=== PATIENT | male | born 1940 | race Caucasian/White ===

== ENCOUNTER 2019-12-20 20:29 | Emergency (ER) | payer OTHER, MEDICARE ==
[2019-12-20] MEDS ORDERED: LIDOCAINE VISCOUS 2% SOLN 15 ML UDC ONE (21:36)
[2019-12-20] MEDS ORDERED: ACETAMINOPHEN 325 MG TABLET ONE (21:57)
[2019-12-20] MEDS ORDERED: NA CHLORIDE 0.9% 100 ML IV ONE (21:57)
[2019-12-20] MEDS ORDERED: CLINDAMYCIN 900MG/D5W 900 MG/50 ML IVPB IV ONE (21:57)
[2019-12-20] MEDS ORDERED: CEFTRIAXONE/SWI 1gm 2 GM/20 ML SYR ONE (21:58)
[2019-12-20 22:07] LABS: Absolute Lymphocytes (CBC) 1.1 K/uL (0.7-4.9); Basophils % 0.5 % (0-1.3); Hematocrit 37.1 % (39.6-49.0); Lymphocytes % 8.1 % (15.3-44.8); RBC Red Blood Cell Count 3.99 M/uL (4.33-5.43)
[2019-12-20 22:18] LABS: Bilirubin Total 0.5 mg/dL (0.2-1.0); Potassium 4.5 mmol/L (3.5-5.1); Protein, Total 8.7 g/dL (6.4-8.2)
--- NOTE | 2019-12-20 22:24 | ER ---
Nurse's Notes [facility] Name: Rojas Gutierres Age: 79 yrs Sex: Male : 1940 Arrival Date: 12/20/2019 Time: 20:32 Bed 26 Private MD: Diagnosis: Dental caries-odontogenic abscess;Dental root caries;Elevated white blood cell count;Unspecified kidney failure;Type 2 diabetes mellitus Presentation: 12/19 20:33 Chief complaint: Patient states: "I started to come down with a tooth infection aj1 yesterday and I went to the dentist and they just gave me antibiotics, but then tonight I started running fever and I was hurting so bad my said I had to come here". Coronavirus screen: The patient has NOT traveled to a country currently being monitored by the [facility] within the last 14 days. Ebola Screen: Patient negative for fever greater than or equal to 101.5 degrees Fahrenheit, and additional compatible Ebola Virus Disease symptoms. Initial Sepsis Screen: Does the patient meet any 2 criteria? Does the patient have a suspected source of infection? Yes: Other: abscessed tooth. Risk Assessment: Do you want to hurt yourself or someone else? Patient reports no desire to harm self or others. 20:33 Method Of Arrival: Ambulatory aj1 20:38 Acuity: IOANA 3 aj1 Triage Assessment: 20:37 General: Appears in no apparent distress. uncomfortable, Behavior is calm, cooperative, aj1 appropriate for age. Pain: Complains of pain in left jaw. EENT: Reports pain in left jaw. Neuro: Level of Consciousness is awake, alert, obeys commands. Cardiovascular: Patient's skin is warm and dry. Respiratory: Airway is patent Respiratory effort is even, unlabored, Respiratory pattern is regular, symmetrical. Historical: - Allergies: 20:37 No Known Allergies; aj1 - PMHx: 20:37 Hyperlipidemia; Hypertension; Diabetes - NIDDM; Gout; aj1 - Immunization history:: Flu vaccine is not up to date. - Social history:: Smoking status: Patient/guardian denies using tobacco. - Family history:: not pertinent. Screenin:06 Abuse screen: Denies threats or abuse. Denies injuries from another. Nutritional ls4 screening: No deficits noted. Tuberculosis screening: No symptoms or risk factors identified. Fall Risk None identified. Vital Signs: 20:37 BP 150 / 73; Pulse 89; Resp 20; Temp 100.9; Pulse Ox 100% on R/A; Weight 83.91 kg (R); aj1 Height 5 ft. 9 in. (175.26 cm); Pain 7/10; 20:37 Body Mass Index 27.32 (83.91 kg, 175.26 cm) aj1 ED Course: 20:32 Patient arrived in ED. jg7 20:37 Arm band placed on Patient placed in waiting room, Patient notified of wait time. aj1 20:39 Triage completed. aj1 21:23 Silverio Olivas MD is Attending Physician. tiffanie 21:42 Annie Tucker RN is Primary Nurse. ls4 22:06 Patient has correct armband on for positive identification. Bed in low position. Call ls4 light in reach. Side rails up X 1. 22:06 No provider procedures requiring assistance completed. ls4 22:22 Emmanuel Perez DDS is Referral Physician. tiffanie 23:01 IV discontinued, intact, bleeding controlled, No redness/swelling at site. Pressure ls4 dressing applied. Administered Medications: 21:45 Drug: Lidocaine Gel 2 % 1 ea Volume: 15 ml; Route: Mucous Membrane; vc 22:36 Follow up: Response: No adverse reaction; Marked relief of symptoms ls4 21:50 Drug: Rocephin 2 grams Route: IV; Rate: per protocol; Site: right antecubital; ls4 22:10 Follow up: IV Status: Completed infusion; IV Intake: 20ml ls4 22:10 Follow up: Response: No adverse reaction ls4 21:50 Drug: Tylenol 650 mg Route: PO; ls4 22:10 Follow up: Response: No adverse reaction ls4 22:15 Drug: Clindamycin 900 mg Route: IVPB; Infused Over: 30 mins; Site: right antecubital; ls4 22:45 Follow up: IV Status: Completed infusion; IV Intake: 50ml ls4 23:00 Drug: Clindamycin 300 mg Route: PO; ls4 23:10 Follow up: Response: No adverse reaction ls4 Intake: 22:10 IV: 20ml; Total: 20ml. ls4 22:45 IV: 50ml; Total: 70ml. ls4 Outcome: 22:22 Discharge ordered by . tiffanie 23:01 Patient left the ED. ls4 23:01 Condition: stable ls4 23:01 Discharged to home ambulatory, with family. ls4 23:01 Discharge instructions given to patient, family, Instructed on discharge instructions, follow up and referral plans. medication usage, Demonstrated understanding of instructions, follow-up care, medications, Prescriptions given X 1. Signatures: Izabel Ellis RN RN aj1 Silverio Olivas MD MD cha Stewart, Lisa, RN RN ls4 Madisyn Taverasg7 Taylor Fisher RN RN
--- NOTE | 2019-12-20 22:24 | EDPHYS ---
Physician Documentation [facility] Name: Rojas Gutierres Age: 79 yrs Sex: Male : 1940 Arrival Date: 12/20/2019 Time: 20:32 Bed 26 Private MD: ED Physician Silverio Olivas HPI: 12/19 21:38 This 79 yrs old Male presents to ER via Ambulatory with complaints of [facility] Toothache, Fever. 21:38 The patient presents with pain, redness, swelling. The problem is located in the left tiffanie cheek and left jaw. Onset: The symptoms/episode began/occurred 2 day(s) ago. Duration: The symptoms are continuous, and are steadily getting worse. Modifying factors: The symptoms are alleviated by nothing, the symptoms are aggravated by nothing. Associated signs and symptoms: The patient has no apparent associated signs or symptoms. Severity of symptoms: At their worst the symptoms were moderate, in the emergency department the symptoms are unchanged. The patient has not experienced similar symptoms in the past. Historical: - Allergies: 20:37 No Known Allergies; aj1 - PMHx: 20:37 Hyperlipidemia; Hypertension; Diabetes - NIDDM; Gout; aj1 - Immunization history:: Flu vaccine is not up to date. - Social history:: Smoking status: Patient/guardian denies using tobacco. - Family history:: not pertinent. ROS: 21:38 Constitutional: Negative for fever, chills, and weight loss, Eyes: Negative for injury, tiffanie pain, redness, and discharge, Neck: Negative for injury, pain, and swelling, Cardiovascular: Negative for chest pain, palpitations, and edema, Respiratory: Negative for shortness of breath, cough, wheezing, and pleuritic chest pain, Abdomen/GI: Negative for abdominal pain, nausea, vomiting, diarrhea, and constipation, Back: Negative for injury and pain, : Negative for injury, bleeding, discharge, and swelling, MS/Extremity: Negative for injury and deformity, Skin: Negative for injury, rash, and discoloration, Neuro: Negative for headache, weakness, numbness, tingling, and seizure, Psych: Negative for depression, anxiety, suicide ideation, homicidal ideation, and hallucinations, Allergy/Immunology: Negative for hives, rash, and allergies, Endocrine: Negative for neck swelling, polydipsia, polyuria, polyphagia, and marked weight changes, Hematologic/Lymphatic: Negative for swollen nodes, abnormal bleeding, and unusual bruising. 21:38 ENT: Positive for Teeth pain Exam: 21:38 Eyes: Pupils equal round and reactive to light, extra-ocular motions intact. Lids and tiffanie lashes normal. Conjunctiva and sclera are non-icteric and not injected. Cornea within normal limits. Periorbital areas with no swelling, redness, or edema. Neck: Trachea midline, no thyromegaly or masses palpated, and no cervical lymphadenopathy. Supple, full range of motion without nuchal rigidity, or vertebral point tenderness. No Meningismus. Chest/axilla: Normal chest wall appearance and motion. Nontender with no deformity. No lesions are appreciated. Cardiovascular: Regular rate and rhythm with a normal S1 and S2. No gallops, murmurs, or rubs. Normal PMI, no JVD. No pulse deficits. Respiratory: Lungs have equal breath sounds bilaterally, clear to auscultation and percussion. No rales, rhonchi or wheezes noted. No increased work of breathing, no retractions or nasal flaring. Abdomen/GI: Soft, non-tender, with normal bowel sounds. No distension or tympany. No guarding or rebound. No evidence of tenderness throughout. Back: No spinal tenderness. No costovertebral tenderness. Full range of motion. Male : Normal genitalia with no discharge or lesions. Skin: Warm, dry with normal turgor. Normal color with no rashes, no lesions, and no evidence of cellulitis. MS/ Extremity: Pulses equal, no cyanosis. Neurovascular intact. Full, normal range of motion. Neuro: Awake and alert, GCS 15, oriented to person, place, time, and situation. Cranial nerves II-XII grossly intact. Motor strength 5/5 in all extremities. Sensory grossly intact. Cerebellar exam normal. Normal gait. Psych: Awake, alert, with orientation to person, place and time. Behavior, mood, and affect are within normal limits. 21:38 Constitutional: The patient appears febrile. 21:38 Head/face: Noted is swelling, that is mild, of the left cheek and left jaw. 21:38 ENT: Mouth: Gums: noted to have cellulitis, reddened, swollen, on the upper left first molar and upper left second molar. Vital Signs: 20:37 BP 150 / 73; Pulse 89; Resp 20; Temp 100.9; Pulse Ox 100% on R/A; Weight 83.91 kg (R); aj1 Height 5 ft. 9 in. (175.26 cm); Pain 7/10; 20:37 Body Mass Index 27.32 (83.91 kg, 175.26 cm) [facility] Procedures: 22:22 I \T\ D: Incision and drainage was performed for an abscess of the left Prepped with oral tiffanie lidocaine. Incised with #11 blade. Drained moderate amount purulent fluid. the patient tolerated the procedure well. MDM: 21:23 Patient medically screened. [facility] 21:40 Data reviewed: vital signs, nurses notes, lab test result(s), CBC, electrolytes. [facility] 12/19 21:38 Order name: CBC with Diff; Complete Time: 22:19 [facility] 12/19 21:38 Order name: Comprehensive Metabolic Panel; Complete Time: 22:19 [facility] 12/19 21:38 Order name: Dressing - Wound; Complete Time: 22:38 [facility] 12/19 21:38 Order name: Gloves, Sterile; Complete Time: 22:38 [facility] 12/19 21:38 Order name: Setup Suture Tray; Complete Time: 22:38 [facility] Administered Medications: 21:45 Drug: Lidocaine Gel 2 % 1 ea Volume: 15 ml; Route: Mucous Membrane; 22:36 Follow up: Response: No adverse reaction; Marked relief of symptoms ls4 21:50 Drug: Rocephin 2 grams Route: IV; Rate: per protocol; Site: right antecubital; ls4 22:10 Follow up: IV Status: Completed infusion; IV Intake: 20ml ls4 22:10 Follow up: Response: No adverse reaction ls4 21:50 Drug: Tylenol 650 mg Route: PO; ls4 22:10 Follow up: Response: No adverse reaction ls4 22:15 Drug: Clindamycin 900 mg Route: IVPB; Infused Over: 30 mins; Site: right antecubital; ls4 22:45 Follow up: IV Status: Completed infusion; IV Intake: 50ml ls4 23:00 Drug: Clindamycin 300 mg Route: PO; ls4 23:10 Follow up: Response: No adverse reaction ls4 Disposition: 12/20/19 22:22 Discharged to Home. Impression: Dental caries - odontogenic abscess, Dental root caries, Elevated white blood cell count, Unspecified kidney failure, Type 2 diabetes mellitus. - Condition is Stable. - Discharge Instructions: Dental Caries, Adult, Dental Pain, Type 2 Diabetes Mellitus, Diagnosis, Adult, Fever, Adult, Dental Pain, Gsnw-ch-Eoxd, Chronic Kidney Disease, Adult, Wewg-pz-Pwmk, Type 2 Diabetes Mellitus, Diagnosis, Adult, Pkhm-ze-Fqvt, Fever, Adult, Qufw-km-Sjfh, Dental Caries, Ejka-yg-Qbkk. - Prescriptions for Clindamycin HCl 300 mg Oral Capsule - take 1 capsule by ORAL route every 6 hours for 10 days; 40 capsule. - Medication Reconciliation Form, Thank You Letter, Antibiotic Education, Prescription Opioid Use form. - Follow up: Private Physician; When: Tomorrow; Reason: Recheck today's complaints, Continuance of care, Re-evaluation by your physician. Follow up: Emmanuel Perez; When: 2 - 3 days; Reason: Recheck today's complaints, Continuance of care, Re-evaluation by your physician. - Problem is new. - Symptoms have improved. Signatures: Dispatcher [employer] EDIzabel Ochoa RN RN aj1 Silverio Olivas MD MD cha Stewart, Lisa, RN RN ls4 Taylor Fisher RN RN vc Corrections: (The following items were deleted from the chart) 23:01 22:22 12/20/2019 22:22 Discharged to Home. Impression: Dental caries - odontogenic ls4 abscess; Dental root caries; Elevated white blood cell count; Unspecified kidney failure; Type 2 diabetes mellitus. Condition is Stable. Discharge Instructions: Dental Caries, Adult, Dental Pain, Fever, Adult, Dental Pain, Gjqv-ml-Cqny, Fever, Adult, Ohna-rf-Rwca, Dental Caries, Mxcc-jx-Pcll, Type 2 Diabetes Mellitus, Diagnosis, Adult, Chronic Kidney Disease, Adult, Udzz-gm-Hbez, Type 2 Diabetes Mellitus, Diagnosis, Adult, Gyht-ka-Mcsn. Prescriptions for Clindamycin HCl 300 mg Oral Capsule - take 1 capsule by ORAL route every 6 hours for 10 days; 40 capsule. and Forms are Medication Reconciliation Form, Thank You Letter, Antibiotic Education, Prescription Opioid Use. Follow up: Private Physician; When: Tomorrow; Reason: Recheck today's complaints, Continuance of care, Re-evaluation by your physician. Follow up: Emmanuel Perez; When: 2 - 3 days; Reason: Recheck today's complaints, Continuance of care, Re-evaluation by your physician. Problem is new. Symptoms have improved. tiffanie
[2019-12-20 23:08] VITALS: BP 150/73; TEMP 100.9; O2SAT 100
== END 2019-12-20 23:01 | disposition home or self-care (01) ==
LOC: ER 20:29
PROC: 0C9 Mouth and Throat, Drainage (ICD-10-PCS; principal; 2019-12-20)
DX: K02.7 Dental root caries (principal); K04.7 Periapical abscess without sinus; D72.829 Elevated white blood cell count, unspecified; N19 Unspecified kidney failure; E11.9 Type 2 diabetes mellitus without complications; I10 Essential (primary) hypertension
CPT/HCPCS: 96365; 96367; 85025; 36415; 80053; 99283; 41800; J0696

== ENCOUNTER 2022-07-05 15:37 | Emergency (ER) | payer OTHER, MEDICARE ==
--- NOTE | 2022-07-05 17:29 | EDPHYS ---
Physician Documentation [facility] Name: Rojas Gutierres Age: 82 yrs Sex: Male : 1940 Arrival Date: 07/05/2022 Time: 15:42 Bed 12 Private MD: Susan Pantoja F ED Physician Fidel Zeng HPI: 07/05 17:47 This 82 yrs old Male presents to ER via Ambulatory with complaints of Fever. snw 17:47 The patient reports fever, not measured (subjective). Onset: The symptoms/episode snw began/occurred suddenly, 4 day(s) ago, and became persistent. Associated signs and symptoms: Pertinent positives: decreased appetite, diarrhea, myalgias, sinus congestion, sore throat. Severity of symptoms: At their worst the symptoms were moderate severe in the emergency department the symptoms are unchanged. The patient has not experienced similar symptoms in the past, Pt's spouse with similar s/s, "not as bad". The patient has not recently seen a physician. Historical: - Allergies: 15:51 No Known Allergies; jl7 - Home Meds: 15:51 glimepiride 2 mg Oral tab [Active]; ezetimibe 10 mg oral tab 1 tab once daily [Active]; jl7 hydrochlorothiazide 25 mg Oral tab [Active]; pravastatin 80 mg oral tab 1 tab once daily [Active]; amlodipine 10 mg tab 1 tab once daily [Active]; lisinopril 40 mg Oral tab 1 tab once daily [Active]; metoprolol tartrate 50 mg Oral tab [Active]; allopurinol 100 mg Oral tab [Active]; meloxicam 7.5 mg oral tab [Active]; - PMHx: 15:51 Diabetes - NIDDM; Gout; Hyperlipidemia; Hypertension; Arthritis; jl7 - PSHx: 15:51 None; jl7 - Immunization history:: Client reports receiving the 2nd dose of the Covid vaccine. - Social history:: Smoking status: Patient denies any tobacco usage or history of. ROS: 17:46 Constitutional: Negative for fever, chills, and weight loss, Eyes: Negative for injury, snw pain, redness, and discharge, ENT: Negative for injury and discharge, sore throat and low grade fever Neck: Negative for injury, pain, and swelling, Cardiovascular: Negative for chest pain, palpitations, and edema, Respiratory: Negative for shortness of breath, cough, wheezing, and pleuritic chest pain. 17:46 Back: Negative for injury, positive for pain : Negative for injury, bleeding, discharge, and swelling, MS/Extremity: Negative for injury and deformity, Skin: Negative for injury, rash, and discoloration, Neuro: Negative for headache, weakness, numbness, tingling, and seizure, Psych: Negative for depression, anxiety, suicide ideation, homicidal ideation, and hallucinations. 17:46 Abdomen/GI: Positive for diarrhea. Exam: 17:46 Constitutional: This is a well developed, well nourished patient who is awake, alert, snw and in no acute distress. Head/Face: Normocephalic, atraumatic. Eyes: Pupils equal round and reactive to light, extra-ocular motions intact. Lids and lashes normal. Conjunctiva and sclera are non-icteric and not injected. Cornea within normal limits. Periorbital areas with no swelling, redness, or edema. ENT: Nares patent. No nasal discharge, no septal abnormalities noted. Tympanic membranes are normal and external auditory canals are clear. Oropharynx with no redness, swelling, or masses, exudates, or evidence of obstruction, uvula midline. Mucous membranes moist. Neck: Trachea midline, no thyromegaly or masses palpated, and no cervical lymphadenopathy. Supple, full range of motion without nuchal rigidity, or vertebral point tenderness. No Meningismus. Chest/axilla: Normal chest wall appearance and motion. Nontender with no deformity. No lesions are appreciated. Cardiovascular: Regular rate and rhythm with a normal S1 and S2. No gallops, murmurs, or rubs. Normal PMI, no JVD. No pulse deficits. Respiratory: Lungs have equal breath sounds bilaterally, clear to auscultation and percussion. No rales, rhonchi or wheezes noted. No increased work of breathing, no retractions or nasal flaring. Abdomen/GI: Soft, non-tender, with normal bowel sounds. No distension or tympany. No guarding or rebound. No evidence of tenderness throughout. Back: No spinal tenderness. No costovertebral tenderness. Full range of motion. Skin: Warm, dry with normal turgor. Normal color with no rashes, no lesions, and no evidence of cellulitis. MS/ Extremity: Pulses equal, no cyanosis. Neurovascular intact. Full, normal range of motion. Neuro: Awake and alert, GCS 15, oriented to person, place, time, and situation. Cranial nerves II-XII grossly intact. Motor strength 5/5 in all extremities. Sensory grossly intact. Cerebellar exam normal. Normal gait. Psych: Awake, alert, with orientation to person, place and time. Behavior, mood, and affect are within normal limits. Vital Signs: 15:50 BP 135 / 61; Pulse 65; Resp 17; Temp 99; Pulse Ox 100% ; Weight 83.91 kg; Height 5 ft. jl7 9 in. (175.26 cm); Pain 5/10; 15:50 Body Mass Index 27.32 (83.91 kg, 175.26 cm) jl7 MDM: 16:19 Patient medically screened. snw 17:47 Data reviewed: vital signs, nurses notes. Data interpreted: Pulse oximetry: on room air snw is 100 %. Interpretation: normal. Counseling: I had a detailed discussion with the patient and/or guardian regarding: the historical points, exam findings, and any diagnostic results supporting the discharge/admit diagnosis, lab results, the need for outpatient follow up, to return to the emergency department if symptoms worsen or persist or if there are any questions or concerns that arise at home. Response to treatment: There is no appreciated change of the patient's symptoms at this time. Special discussion: Based on the patient's Hx, exam, and Dx evaluation, there is no indication for emergent surgery or inpatient Tx. It is understood by the patient/guardian that if the Sx's persist or worsen they need to return immediately for re-evaluation. Based on the history and exam findings, there is no indication for further emergent testing or inpatient evaluation. I discussed with the patient/guardian the need to see the primary care provider for further evaluation of the symptoms. 07/05 16:03 Order name: Flu; Complete Time: 16:59 snw 07/05 16:05 Order name: SARS-COV-2 RT PCR (Document "Date of Onset" if Symptomatic) iw 07/05 16:07 Order name: Influenza Screen (A ; Complete Time: 16:55 EDMS Administered Medications: No medications were administered Disposition: 07/06 08:42 Co-signature as Attending Physician, Fidel Zeng DO I was immediately available on-site ms3 in the Emergency Department for consultation in the care of the patient. . Disposition Summary: 07/05/22 17:29 Discharge Ordered Location: Home snw Condition: Stable snw Diagnosis - SARS-associated coronavirus as the cause of diseases classified elsewhere snw - Diarrhea, unspecified snw Followup: snw - With: Susan Pantoja MD - When: 1 - 2 days - Reason: Recheck today's complaints, Continuance of care, Re-evaluation by your physician Followup: snw - With: Emergency Department - When: As needed - Reason: Worsening of condition Discharge Instructions: - Discharge Summary Sheet snw - Food Choices to Help Relieve Diarrhea, Adult snw - COVID-19 snw - 10 Things You Can Do to Manage Your COVID-19 Symptoms at Home - [facility] snw - COVID-19: Quarantine vs. Isolation - [facility] snw - Prevent the Spread of COVID-19 if You Are Sick - [facility] snw Forms: - Medication Reconciliation Form snw - Thank You Letter snw - Antibiotic Education snw - Prescription Opioid Use snw Prescriptions: - Zyrtec 10 mg Oral Tablet - take 1 tablet by ORAL route once daily As needed; 20 tablet; Refills: 0, snw Product Selection Permitted - Lomotil 2.5-0.025 mg Oral Tablet - take 1 tablet by ORAL route every 12 hours As needed; 6 tablet; Refills: 0, snw Product Selection Permitted - Pepcid 20 mg Oral Tablet - take 1 tablet by ORAL route once daily; 20 tablet; Refills: 0, Product snw Selection Permitted Signatures: Dispatcher [employer] EDKristine Hay, CLIP COATER-C CLIP COATER-Csnw Megan Degroot RN RN Fidel Vázquez DO DO ms3 Corrections: (The following items were deleted from the chart) 07/05 15:55 15:51 Home Meds: None; uriah kruse
--- NOTE | 2022-07-05 17:29 | ER ---
Nurse's Notes [facility] Name: Rojas Gutierres Age: 82 yrs Sex: Male : 1940 Arrival Date: 07/05/2022 Time: 15:42 Bed 12 Private MD: Susan Pantoja F Diagnosis: SARS-associated coronavirus as the cause of diseases classified elsewhere;Diarrhea, unspecified Presentation: 07/05 15:50 Chief complaint: Patient states: Fever, diarrhea and sore throat x 3 days. Coronavirus jl7 screen: Vaccine status: Patient reports being unvaccinated. diarrhea, fever, sore throat, Client presents with at least one sign or symptom that may indicate coronavirus-19. Standard/surgical mask placed on the client. Provider contacted for isolation considerations. Ebola Screen: No symptoms or risks identified at this time. Initial Sepsis Screen: Does the patient meet any 2 criteria? No. Patient's initial sepsis screen is negative. Does the patient have a suspected source of infection? No. Patient's initial sepsis screen is negative. Risk Assessment: Do you want to hurt yourself or someone else? Patient reports no desire to harm self or others. Onset of symptoms was July 02, 2022. 15:50 Method Of Arrival: Ambulatory jl7 15:50 Acuity: IOANA 3 jl7 Triage Assessment: 15:51 General: Appears in no apparent distress. uncomfortable, Behavior is calm, cooperative, jl7 appropriate for age. Pain: Complains of pain in sore throat Pain currently is 5 out of 10 on a pain scale. Historical: - Allergies: 15:51 No Known Allergies; jl7 - Home Meds: 15:51 glimepiride 2 mg Oral tab [Active]; ezetimibe 10 mg oral tab 1 tab once daily [Active]; jl7 hydrochlorothiazide 25 mg Oral tab [Active]; pravastatin 80 mg oral tab 1 tab once daily [Active]; amlodipine 10 mg tab 1 tab once daily [Active]; lisinopril 40 mg Oral tab 1 tab once daily [Active]; metoprolol tartrate 50 mg Oral tab [Active]; allopurinol 100 mg Oral tab [Active]; meloxicam 7.5 mg oral tab [Active]; - PMHx: 15:51 Diabetes - NIDDM; Gout; Hyperlipidemia; Hypertension; Arthritis; jl7 - PSHx: 15:51 None; jl7 - Immunization history:: Client reports receiving the 2nd dose of the Covid vaccine. - Social history:: Smoking status: Patient denies any tobacco usage or history of. Screenin:54 Abuse screen: Denies threats or abuse. Nutritional screening: No deficits noted. bm7 Tuberculosis screening: No symptoms or risk factors identified. Fall Risk None identified. Assessment: 17:54 Reassessment: Patient and/or family updated on plan of care and expected duration. Pain bm7 level reassessed. Patient is alert, oriented x 3, equal unlabored respirations, skin warm/dry/pink. Vital Signs: 15:50 BP 135 / 61; Pulse 65; Resp 17; Temp 99; Pulse Ox 100% ; Weight 83.91 kg; Height 5 ft. jl7 9 in. (175.26 cm); Pain 5/10; 15:50 Body Mass Index 27.32 (83.91 kg, 175.26 cm) jl7 ED Course: 15:42 Patient arrived in ED. rg4 15:42 Susan Pantoja MD is Private Physician. rg4 15:51 Triage completed. jl7 15:51 Arm band placed on right wrist. jl7 16:02 Krist[facility]C [facility]. snw 16:02 Fidel Zeng DO is Attending Physician. snw 16:03 Anabel Hwang, FABIANO is Primary Nurse. bm7 16:18 COVID swab sent to lab. Flu and/or RSV swab sent to lab. vg1 17:28 Susan Pantoja MD is Referral Physician. snw 17:54 Patient has correct armband on for positive identification. Call light in reach. Side bm7 rails up X 1. Client placed on continuous cardiac and pulse oximetry monitoring. NIBP monitoring applied. 17:54 No provider procedures requiring assistance completed. Patient did not have IV access bm7 during this emergency room visit. Administered Medications: No medications were administered Medication: 17:54 VIS not applicable for this client. bm7 Outcome: 17:29 Discharge ordered by . snw 17:54 Discharged to home ambulatory. bm7 17:54 Condition: good 17:54 Discharge instructions given to patient, Instructed on discharge instructions, follow up and referral plans. medication usage, Demonstrated understanding of instructions, follow-up care, medications, Prescriptions given X 3. 17:55 Patient left the ED. bm7 Signatures: Kristine Miller FNP-C LEGAL INVESTIGATOR-Skye Amanda Jahala RN RN jl7 Diana Ramirez RN RN vg1 Anabel Hwang RN RN bm7 Corrections: (The following items were deleted from the chart) 15:55 15:51 Home Meds: None; uriah kruse
== END 2022-07-05 17:55 | disposition home or self-care (01) ==
LOC: ER 15:37
DX: U07.1 COVID-19 (principal); R19.7 Diarrhea, unspecified; I10 Essential (primary) hypertension; E11.9 Type 2 diabetes mellitus without complications
CPT/HCPCS: 87804 ×2; U0003; 99283

== ENCOUNTER 2022-08-04 11:37 | Inpatient (IN) | payer OTHER, MEDICARE ==
[2022-08-04 12:10] LABS: Absolute Lymphocytes (CBC) 1.3 K/uL (0.7-4.9); Hematocrit 29.4 % (39.6-49.0); Lymphocytes % 13.9 % (15.3-44.8); MCV 95.4 fL (80-100); MPV 8.5 fL (7.6-11.3); RBC Red Blood Cell Count 3.08 M/uL (4.33-5.43)
[2022-08-04 12:13] LABS: Protime INR 1.05
[2022-08-04 12:34] LABS: Albumin 3.4 g/dL (3.4-5.0); Bilirubin Direct 0.2 mg/dL (0-0.2); Bilirubin Total 0.6 mg/dL (0.2-1.0); Protein, Total 7.6 g/dL (6.4-8.2)
[2022-08-04 12:39] LABS: Magnesium 1.7 mg/dL (1.8-2.4); Potassium 4.6 mmol/L (3.5-5.1)
[2022-08-04 12:40] LABS: Troponin High Sensitivity 74.4 pg/mL (<58.9)
--- NOTE | 2022-08-04 13:06 | RAD REPORT ---
EXAM DESCRIPTION: RAD - Chest Single View - 08/04/2022 12:43 pm CLINICAL HISTORY: CHEST PAIN COMPARISON: Portable 07/15/2022 TECHNIQUE: AP portable chest image was obtained 08/04/2022 12:43 pm . FINDINGS: No dense consolidation or mass. Interstitial markings are prominent throughout both lung f ields more prominent in each medial base. Lung volumes are not substantially different from the Octob er 6 study. Trachea is in the midline. Heart size is prominent. Central vasculature is increased over the comparison. No pneumothorax or large pleural effusion. No acute bony abnormality seen. No acute aortic findings suspected. IMPRESSION: Mild interstitial edema pattern. Failure/volume overload are suspected.
--- NOTE | 2022-08-04 13:33 | ER ---
Nurse's Notes [facility] Name: Rojas Gutierres Age: 82 yrs Sex: Male : 1940 Arrival Date: 08/04/2022 Time: 11:41 Bed 7 Private MD: Diagnosis: SARS-associated coronavirus as the cause of diseases classified elsewhere;Chest pain, unspecified-NSTEMI Presentation: 08/04 11:57 Chief complaint: Patient states: Mid sternal chest pain, radiates to right arm and jaw, jl7 fatigue, shortness of breath and extreme fatigue since this morning. Coronavirus screen: At this time, the client does not indicate any symptoms associated with coronavirus-19. Ebola Screen: No symptoms or risks identified at this time. Initial Sepsis Screen: Does the patient meet any 2 criteria? No. Patient's initial sepsis screen is negative. Does the patient have a suspected source of infection? No. Patient's initial sepsis screen is negative. Risk Assessment: Do you want to hurt yourself or someone else? Patient reports no desire to harm self or others. Onset of symptoms was August 04, 2022. 11:57 Method Of Arrival: Wheelchair jl7 11:57 Acuity: IOANA 2 jl7 Triage Assessment: 12:02 General: Appears in no apparent distress. uncomfortable, Behavior is calm, cooperative, jl7 appropriate for age. Pain: Complains of pain in chest Pain currently is 0 out of 10 on a pain scale. at worst was 5 out of 10 on a pain scale. Historical: - Allergies: 12:02 No Known Allergies; jl7 - PMHx: 12:02 Arthritis; Diabetes - NIDDM; Gout; Hyperlipidemia; Hypertension; jl7 - Immunization history:: Client reports receiving the 2nd dose of the Covid vaccine. - Social history:: Smoking status: Patient denies any tobacco usage or history of. Screenin:02 Abuse screen: Denies threats or abuse. Denies injuries from another. Nutritional mb8 screening: No deficits noted. Tuberculosis screening: No symptoms or risk factors identified. Fall Risk No fall in past 12 months (0 pts). Secondary diagnosis (15 points) IV access (20 points). Ambulatory Aid- None/Bed Rest/Nurse Assist (0 pts). Gait- Weak (10 pts.). Mental Status- Oriented to own ability (0 pts). Total Krishnan Fall Scale indicates High Risk Score (45 or more points). Fall prevention measures have been instituted. Side Rails Up X 2 Family Present and informed to notify staff if the need to leave the bedside As available patient and family educated on Fall Prevention Program and Strategies. Assessment: 11:50 General: Appears uncomfortable, Behavior is cooperative, appropriate for age, anxious. mb8 Pain: Complains of pain in right arm and left arm Pain does not radiate. Pain: Pain began suddenly. Cardiovascular: Reports fatigue, shortness of breath, Denies chest pain, Chest pain is denied. Respiratory: Reports shortness of breath Breath sounds are diminished bilaterally. 12:26 Reassessment: Patient and/or family updated on plan of care and expected duration. Pain mb8 level reassessed. Patient is alert, oriented x 3, equal unlabored respirations, skin warm/dry/pink. 13:37 Reassessment: Patient and/or family updated on plan of care and expected duration. Pain mb8 level reassessed. Patient is alert, oriented x 3, equal unlabored respirations, skin warm/dry/pink. Patient states feeling better. Vital Signs: 11:57 BP 156 / 78; Pulse 87; Resp 29 S; Temp 97.9; Pulse Ox 93% on R/A; Weight 81.65 kg; jl7 Height 5 ft. 9 in. (175.26 cm); Pain 0/10; 12:26 BP 154 / 68; Pulse 76; Resp 20; Pulse Ox 95% on 2 lpm NC; mb8 13:37 BP 140 / 72; Pulse 74; Resp 16; Pulse Ox 96% on 2 lpm NC; Pain 0/10; mb8 11:57 Body Mass Index 26.58 (81.65 kg, 175.26 cm) jl7 Vitals: 12:26 Cardiac Rhythm Assessment Sinus rhythm. mb8 13:37 Cardiac Rhythm Assessment Sinus rhythm. mb8 ED Course: 11:41 Patient arrived in ED. mr 11:47 Papi Mcgee, FABIANO is Primary Nurse. mb8 11:50 Patient has correct armband on for positive identification. Placed in gown. Bed in low mb8 position. Call light in reach. Side rails up X2. Client placed on continuous cardiac and pulse oximetry monitoring. NIBP monitoring applied. site monitor on. 11:50 No provider procedures requiring assistance completed. Inserted saline lock: 20 gauge mb8 in right antecubital area, using aseptic technique. Blood collected. Oxygen administration via nasal cannula \T\ 2L/min. 11:52 Dolores Escoto FNP-C is [facility]. kb 11:52 Fidel Zeng DO is Attending Physician. kb 12:01 Triage completed. jl7 12:02 Arm band placed on right wrist. jl7 12:05 COVID swab sent to lab. mb8 12:45 XRAY Chest (1 view) In Process Unspecified. EDMS 13:31 Austin Navarro MD is Hospitalizing Provider. kb Administered Medications: No medications were administered Medication: 12:02 VIS not applicable for this client. mb8 Outcome: 13:32 Decision to Hospitalize by Provider. kb 17:47 Patient left the ED. mb8 Signatures: Dispatcher [employer] EDMT Dolores Escoto FNP-C FNP-Victorino Mcclendondustin Natasha Megan Degroot RN RN jl7 Papi Mcgee RN RN mb8
--- NOTE | 2022-08-04 13:33 | EDPHYS ---
Physician Documentation [facility] Name: Rojas Gutierres Age: 82 yrs Sex: Male : 1940 Arrival Date: 08/04/2022 Time: 11:41 Bed 7 Private MD: ED Physician Fidel Zeng HPI: 08/04 15:10 This 82 yrs old Male presents to ER via Wheelchair with complaints of Chest Pain, Arm kb Pain, Jaw Pain, Fatigue. 15:10 The patient or guardian reports chest pain that is located primarily in the substernal kb area. Onset: today. The pain radiates to both arms, jaw. Associated signs and symptoms: Pertinent positives: shortness of breath. The chest pain is described as a pressure. Duration: The patient or guardian reports a single episode, that is now resolved. Modifying factors: The symptoms are alleviated by nothing. the symptoms are aggravated by nothing. Severity of pain: At its worst the pain was moderate in the emergency department the pain has resolved. The patient has not experienced similar symptoms in the past. The patient has not recently seen a physician. Pt reports chest pain to middle upper chest that started this morning with radiation to jaw and bilateral arms, as well as shortness of breath. Historical: - Allergies: 12:02 No Known Allergies; jl7 - PMHx: 12:02 Arthritis; Diabetes - NIDDM; Gout; Hyperlipidemia; Hypertension; jl7 - Immunization history:: Client reports receiving the 2nd dose of the Covid vaccine. - Social history:: Smoking status: Patient denies any tobacco usage or history of. ROS: 15:09 Constitutional: Negative for fever, chills, and weight loss. kb 15:09 Cardiovascular: Positive for chest pain, Negative for edema, orthopnea, palpitations, paroxysmal nocturnal dyspnea. 15:09 Respiratory: Positive for shortness of breath. 15:09 MS/extremity: Positive for pain, of the right arm and left arm. 15:09 All other systems are negative. Exam: 13:44 Constitutional: This is a well developed, well nourished patient who is awake, alert, kb and in no acute distress. Head/Face: Normocephalic, atraumatic. ENT: Moist Mucous membranes Cardiovascular: Regular rate and rhythm with a normal S1 and S2. No gallops, murmurs, or rubs. No pulse deficits. Respiratory: Respirations even and unlabored. No increased work of breathing. Talking in full sentences Abdomen/GI: Soft, non-tender. No distention Skin: Warm, dry with normal turgor. Normal color. MS/ Extremity: Pulses equal, no cyanosis. Neurovascular intact. Full, normal range of motion. Neuro: Awake and alert, GCS 15, oriented to person, place, time, and situation. Moves all extremities. Normal gait. Psych: Awake, alert, with orientation to person, place and time. Behavior, mood, and affect are within normal limits. 13:44 ECG was reviewed by the Attending Physician. Vital Signs: 11:57 BP 156 / 78; Pulse 87; Resp 29 S; Temp 97.9; Pulse Ox 93% on R/A; Weight 81.65 kg; jl7 Height 5 ft. 9 in. (175.26 cm); Pain 0/10; 12:26 BP 154 / 68; Pulse 76; Resp 20; Pulse Ox 95% on 2 lpm NC; mb8 13:37 BP 140 / 72; Pulse 74; Resp 16; Pulse Ox 96% on 2 lpm NC; Pain 0/10; mb8 11:57 Body Mass Index 26.58 (81.65 kg, 175.26 cm) jl7 MDM: 11:52 Patient medically screened. kb 15:08 Data reviewed: vital signs, nurses notes. Data interpreted: Pulse oximetry: on room air kb is 96 %. Interpretation: normal. Counseling: I had a detailed discussion with the patient and/or guardian regarding: the historical points, exam findings, and any diagnostic results supporting the discharge/admit diagnosis, lab results, radiology results, the need for further work-up and treatment in the hospital. Physician consultation: Austin Navarro MD regarding admission, to the telemetry unit. patient's condition, and will see patient in ED. 08/04 11:52 Order name: Basic Metabolic Panel; Complete Time: 13:00 kb 08/04 11:52 Order name: CBC with Diff; Complete Time: 12:17 kb 08/04 11:52 Order name: LFT's; Complete Time: 13:00 kb 08/04 11:52 Order name: Magnesium; Complete Time: 13:00 kb 08/04 11:52 Order name: NT PRO-BNP; Complete Time: 13:00 kb 08/04 11:52 Order name: PT-INR; Complete Time: 12:17 kb 08/04 11:52 Order name: Troponin HS; Complete Time: 13:00 kb 08/04 11:52 Order name: XRAY Chest (1 view); Complete Time: 13:07 kb 08/04 11:52 Order name: EKG; Complete Time: 11:53 kb 08/04 11:52 Order name: Cardiac monitoring; Complete Time: 12:00 kb 08/04 11:52 Order name: EKG - Nurse/Tech; Complete Time: 12:00 kb 08/04 11:57 Order name: COVID-19 SARS RT PCR (Document "Date of Onset" if Symptomatic); Complete kb Time: 13:36 08/04 11:57 Order name: D-Dimer; Complete Time: 12:33 kb 08/04 13:53 Order name: CONS Physician Consult [facility] 08/04 11:52 Order name: IV Saline Lock; Complete Time: 12:00 kb 08/04 11:52 Order name: Labs collected and sent; Complete Time: 12:00 kb 08/04 11:52 Order name: O2 Per Protocol; Complete Time: 12:00 kb 08/04 11:52 Order name: O2 Sat Monitoring; Complete Time: 12:00 kb EC:44 Rate is 84 beats/min. Rhythm is regular. QRS [place] is Normal. QRS interval is normal at kb 88 msec. QT interval is normal at 491 msec. Administered Medications: No medications were administered Disposition: 14:07 Co-signature as Attending Physician, Fidel TOBIAS was immediately available onsite ms3 in the emergency department for consultation in the care of the patient. Disposition Summary: 08/04/22 13:32 Hospitalization Ordered Hospitalization Status: Observation kb Provider: Austin Navarro Location: Telemetry/MedSurg (observation) kb Condition: Stable kb Problem: new kb Symptoms: are unchanged kb Bed/Room Type: Standard Room Assignment: 418(08/04/22 16:35) bd Diagnosis - SARS-associated coronavirus as the cause of diseases classified elsewhere kb - Chest pain, unspecified - NSTEMI kb Forms: - Medication Reconciliation Form kb - SBAR form kb Signatures: Dispatcher [employer] EDME Dolores Escoto FNP-C FNP-Ckb Dirrim, Barbara bd Leal, Jahala, RN RN jl7 Fidel Zeng DO DO ms3 Corrections: (The following items were deleted from the chart) 16:35 13:32 kb rachelle
[2022-08-04] MEDS ORDERED: ACETAMINOPHEN 325 MG TABLET PO PRN (13:55)
[2022-08-04] MEDS: ASPIRIN 325 MG TAB PO SCH (14:00)
[2022-08-04] MEDS ORDERED: HYDROCODONE/APAP 10/325 TAB PO PRN (14:17)
[2022-08-04] MEDS ORDERED: ASPIRIN 325 MG TAB ONE (14:26)
[2022-08-04] MEDS ORDERED: ONDANSETRON 4 MG/2 ML VIAL IV PRN (15:57)
[2022-08-04] MEDS ORDERED: GLUCAGON 1 MG/VIAL IM PRN (16:17)
[2022-08-04] MEDS ORDERED: HYDRALAZINE HCL 20 MG/ML VIAL IV PRN (16:19)
--- NOTE | 2022-08-04 16:19 | P.HP ---
Certification for Inpatient Patient admitted to: Inpatient With expected LOS: >2 Midnights Patient will require the following post-hospital care: None Practitioner: I am a practitioner with admitting privileges, knowledge of patient current condition, hospital course, and medical plan of care. Services: Services provided to patient in accordance with Admission requirements found in Title 42 Section 412.3 of the Code of Federal Regulations Patient History Date of Service: 08/04/22 Reason for admission: Chest pain History of Present Illness: Patient is an 82-year-old male with a past medical history significant for DM 2, gout, hyperlipidemia, hypertension, osteoarthritis who presents with complaint of chest pain located in the substernal chest area onset this morning. Patient indicated that pain radiates to his arms, neck and jaw area. Patient rated pain as 5/10 in severity and described pain as pressure in quality. Patient reported associated signs and symptoms of shortness of breath, fatigue and weakness. Patient denies any other signs or symptoms. Symptoms are aggravated or relieved by nothing. Patient decided to present to the hospital due to worsening symptoms. Allergies No Known Allergies Allergy (Verified 07/15/22 21:49) Home Medications: Allopurinol 1 tab PO DAILY 07/15/22 Amlodipine Besylate 1 tab PO DAILY 07/15/22 Ezetimibe 1 tab PO DAILY 07/15/22 Glimepiride 1 tab PO DAILY 07/15/22 Metoprolol Tartrate 1 tab PO BID 07/15/22 Pravastatin Sodium 1 tab PO DAILY 07/15/22 - Past Medical/Surgical History Has patient received pneumonia vaccine in the past: No -: Hypertension -: Gout -: Diabetes mellitus type 2 -: HLD -: OA Past Surgical History: Reviewed- Non-Contributory - Family History Family History: Reviewed- Non-Contributory - Social History Smoking Status: Former smoker Alcohol use: No CD- Drugs: No Caffeine use: Yes Place of Residence: Home Review of Systems General: Weakness, Other (fatigue) Eyes: Unremarkable ENT: Unremarkable Respiratory: Shortness of Breath Cardiovascular: Chest Pain Gastrointestinal: Unremarkable Genitourinary: Unremarkable Musculoskeletal: Neck Pain, Arm Pain, Other (Jaw pain ) Integumentary: Unremarkable Neurological: Weakness Lymphatics: Unremarkable Physical Examination - Vital Signs Temperature: 98.7 F Blood Pressure: 137/57 Pulse: 64 Respirations: 18 Pulse Ox (%): 99 - Physical Exam General: Alert, In no apparent distress, Oriented x3, Cooperative, Mild distress HEENT: Atraumatic, PERRLA, Mucous membr. moist/pink, EOMI, Sclerae nonicteric Neck: Supple, 2+ carotid pulse no bruit, No LAD, Without JVD or thyroid abnormality Respiratory: Clear to auscultation bilaterally, Normal air movement Cardiovascular: No edema, Normal S1 S2 Capillary refill: <2 Seconds Gastrointestinal: Normal bowel sounds, Soft and benign, No tenderness Musculoskeletal: No clubbing, No contractures, No erythema, No tenderness Integumentary: No rashes, No breakdown, No significant lesion Neurological: Normal gait, Normal speech, Normal tone, Normal affect Lymphatics: No axilla or inguinal lymphadenopathy - Studies Laboratory Data (last 24 hrs) 08/04/22 11:58: PT 11.6, INR 1.05 08/04/22 11:58: WBC 9.40, Hgb 9.8 L, Hct 29.4 L, Plt Count 322 08/04/22 11:58: Sodium 141, Potassium 4.6, BUN 33 H, Creatinine 2.06 H, Glucose 194 H, Magnesium 1.7 L, Total Bilirubin 0.6, AST 25, ALT 29, Alkaline Phosphatase 94 Assessment and Plan - Plan --NSTEMI. Will trend serial troponincurrently elevated. Patient started on heparin drip. Echocardiogram pending. Cardiology consulted. Telemetry to monitor for any significant arrhythmia. We will await further recommendation from upper extremity surgeon. --DM2. BS monitoring with sliding scale insulin. --Hyperlipidemia. Continue statin and zetia. --Gout. Continue home medication. --Hypertension. Poorly controlled. Continue home medications and hydralazine prn --Osteoarthritis. We will manage pain with current pain medication regimen --CKD 3B. Baseline unknown. Rigging Engineer consulted. Will await further recommendations and continue to monitor renal functions --Elevated BNP. BNP at 3578. Echocardiogram to assess for CHF. Patient placed on Lasix. Daily weight and strict I/O. -- Hypomagnesemia. Replete as needed. --Anemia of chronic disease. H&H stable. We will continue to monitor hemoglobin and transfuse if less than 7.0. --Elevated D-Dimer. VQ scan pending. Continue heparin drip. --Covid 19 Infection. Spouse reported that they tested positive 2 weeks ago. Continue airborne and contact precautions. --Anemia of chronic disease. H&H stable. We will continue to monitor hemoglobin and transfuse if less than 7.0. --DVT prophylaxis with Heparin drip Discharge Plan: Home Plan to discharge in: Greater than 2 days - Advance Directives Does patient have a Living Will: No Does patient have a Durable POA for Healthcare: No - Code Status/Comfort Care Code Status Assessed: Yes Physician Review: Patient Assessed, Agree with Above Assessment and Plan Critical Care: No
[2022-08-04] MEDS: INSULIN -REGULAR HUMAN 50 UNIT/0.5 ML ML SQ SCH ×2 (16:30→20:52)
[2022-08-04] MEDS ORDERED: HEPARIN/D5W 25,000 UNIT/500 ML BAG IV SCH (17:00)
[2022-08-04] MEDS ORDERED: D10W 250 ML BAG IV PRN (17:19)
[2022-08-04] MEDS: FUROSEMIDE 40 MG/4 ML VIAL IV SCH (18:47)
[2022-08-04 18:59] LABS: Protime INR 1.09
[2022-08-04] MEDS ORDERED: HEPARIN/D5W 25,000 UNIT/500 ML BAG IV PRN (19:00)
[2022-08-04 19:21] LABS: Magnesium 1.8 mg/dL (1.8-2.4); Phosphorus 2.9 mg/dL (2.5-4.9); Thyroid Stimulating Hormone 2.39 uIU/mL (0.360-3.740)
[2022-08-04] MEDS: METOPROLOL TAR 50 MG TAB PO SCH (20:51)
[2022-08-05 04:39] LABS: Absolute Lymphocytes (CBC) 1.3 K/uL (0.7-4.9); Hematocrit 23.4 % (39.6-49.0); Lymphocytes % 22.7 % (15.3-44.8); MCV 94.5 fL (80-100); MPV 8.5 fL (7.6-11.3); RBC Red Blood Cell Count 2.48 M/uL (4.33-5.43)
[2022-08-05 04:56] LABS: Potassium 3.7 mmol/L (3.5-5.1)
[2022-08-05] MEDS: INSULIN -REGULAR HUMAN 50 UNIT/0.5 ML ML SQ SCH ×2 (07:30→11:30)
[2022-08-05] MEDS ORDERED: POTASSIUM CL SA 10 MEQ TAB PO ONE (07:42)
[2022-08-05 08:53] LABS: Hematocrit 26.6 % (39.6-49.0); MCV 95.5 fL (80-100); MPV 8.3 fL (7.6-11.3); RBC Red Blood Cell Count 2.79 M/uL (4.33-5.43)
[2022-08-05] MEDS ORDERED: POTASSIUM 25 MEQ EFFERV TAB PO ONE (09:00)
[2022-08-05] MEDS: AMLODIPINE 10 MG TAB PO SCH (09:03)
[2022-08-05] MEDS: ASPIRIN 325 MG TAB PO SCH (09:03)
[2022-08-05] MEDS: ATORVASTATIN 10 MG TAB PO SCH (09:03)
[2022-08-05] MEDS: EZETIMIBE 10 MG TAB PO SCH (09:03)
[2022-08-05] MEDS: allopurinoL 100 MG TAB PO SCH (09:04)
[2022-08-05] MEDS: METOPROLOL TAR 50 MG TAB PO SCH ×2 (09:04→21:40)
[2022-08-05] MEDS: FUROSEMIDE 40 MG/4 ML VIAL IV SCH (09:05)
[2022-08-05] MEDS ORDERED: LIDOCAINE 1% 20 ML MDV ONE (10:08)
[2022-08-05] MEDS ORDERED: HEPA 1000U/500MLS 2,000 UNIT/1,000 ML BAG IV ONE (10:08)
[2022-08-05] MEDS ORDERED: NA CHLORIDE 0.9% 1,000 ML IV SCH (13:00)
[2022-08-05] MEDS ORDERED: NA CHLORIDE 0.9% 250 ML IV ONE (14:00)
--- NOTE | 2022-08-05 14:33 | EKG ---
Test Date: 2022-08-04 Test Time: 11:52:44 Air Conditioning Unit Assembler: CHRISTIAN MEASUREMENT RESULTS: Intervals: Rate: 84 NV: QRSD: 88 QT: 416 QTc: 491 [place]: P: NV: QRS: 76 T: 56 INTERPRETIVE STATEMENTS: Accelerated Junctional rhythm Nonspecific ST and T wave abnormality Prolonged QT Abnormal ECG Compared to ECG 07/15/2022 12:25:10 Accelerated junctional rhythm now present Prolonged QT interval now present Sinus bradycardia no longer present ST (T wave) deviation still present Electronically Signed On 08-05-22 14:30:47 CDT by Dequan Horner
--- NOTE | 2022-08-05 14:52 | ECHO ---
HEIGHT: 5 ft 10 in WEIGHT: 154 lb 0 oz DATE OF STUDY: 08/05/[address]: Marco Trujillo 2-DIMENSIONAL: YES M.MODE: YES DOPPLER: YES COLOR FLOW: YES TDS: YES PORTABLE: YES DEFINITY: BUBBLE STUDY: DIAGNOSIS: CHEST PAIN, ELEVATED TROPONIN CARDIAC HISTORY: CATHERIZATION: NO SURGERY: NO PROSTHETIC VALVE: NO PACEMAKER: NO MEASUREMENTS (cm) DIASTOLIC (NORMALS) SYSTOLIC (NORMALS) IVSd 1.0 (0.6-1.2) LA Diam 3.4 (1.9-4.0) LVEF 52% LVIDd 4.9 (3.5-5.7) LVIDs 3.6 (2.0-3.5) %FS 27% LVPWd 1.1 (0.6-1.2) Ao Diam 2.6 (2.0-3.7) 2 DIMENSIONAL ASSESSMENT: RIGHT ATRIUM: NORMAL LEFT ATRIUM: ENLARGED RIGHT VENTRICLE: NORMAL LEFT VENTRICLE: NORMAL TRICUSPID VALVE: MILD TRICUSPID REGURGITATION MITRAL VALVE: MILD MITRAL REGURGITATION PULMONIC VALVE: NORMAL AORTIC VALVE: HEAVILY CALCIFIED PERICARDIAL EFFUSION: NONE AORTIC ROOT: NORMAL LEFT VENTRICULAR WALL MOTION: NORMAL DOPPLER/COLOR FLOW: SEE BELOW COMMENTS: NORMAL LEFT VENTRICULAR EJECTION FRACTION 55-60%. MODERATE DIASTOLIC DYSFUNCTION. 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 MILD MITRAL REGURGITATION/ MILD TRICUSPID REGURGITATION. POOR WINDOWS. TECHNOLOGIST: SEBASTIAN ARBOLEDA
--- NOTE | 2022-08-05 14:56 | CON ---
Date of Consultation: 08/05/2022 Reason For Consultation: Elevated BUN and creatinine, fluid management, plan for cardiac cath, and chronic kidney disease. History Of Present Illness: This is a pleasant 82-year-old gentleman with significant past medical history of diabetes complicated with neuropathy and nephropathy, gout, hyperlipidemia, osteoarthritis, the patient recently admitted to the hospital with acute kidney injury, at that time creatinine arelis to 2, plateaued to 3, then plateaued down to the 2s. The patient stabilized. The patient had disproportion in the kidney size with renal cyst. Otherwise, the patient was stable upon discharge. Apparently, the patient came to the hospital this time complaining from chest pain radiating to the shoulder and weakness with fatigue. The patient planned for a cardiac cath today. Primary workup showed creatinine 1.8, which is lower than the discharge a few weeks ago. The patient denied taking any nonsteroidal, no IV contrast. The patient has been on pravastatin. No MARIO inhibitor. Past Medical History: Includes; 1. Gout. 2. Hypertension. 3. Diabetes. 4. Hyperlipidemia. 5. 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 6. Osteoarthritis. 7. Complex renal cyst. Home Medications: Include; 1. Allopurinol. 2. Amlodipine. 3. Zetia. 4. Glimepiride. 5. Metoprolol. 6. Pravastatin. Family History: Positive for hypertension and CAD. Social History: Ex-smoker. Denied alcohol. Denied drugs abuse. Review of Systems: Head and Neck: No red eye. No ear pain. GI: No nausea. No vomiting. : No polyuria. No dysuria. No hematuria. Education Administrator: Not applicable. Respiratory: No shortness breath. Cardiovascular: Has chest pain. Endocrine: No polydipsia. Skin: No rash. Neuro: Has neuropathy. Musculoskeletal: Occasional joint pain. Physical Examination: Vital Signs: When I saw the patient; blood pressure 152/64, pulse of 66, afebrile. Chest: Clear to auscultation. Heart: S1, S2. Regular. Abdomen: Soft, nontender. Extremity: No edema. Neurologic: Alert. No focality. Laboratory Data: WBC 6.6, H and H 8.8/26.6. Sodium 143, potassium 3.7, bicarb 21, BUN 33, creatinine 1.8, GFR of 36, calcium 8.8. TSH 2.3. BNP 60,444. Troponin elevated to 1900. From the previous admission, PC ratio 0.2. Renal ultrasound; .01/18, complex cyst on the left kidney 3.7 cm. Assessment And Plan: 1. 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 The patient will be needing cardiac cath today for non-ST elevation myocardial infarction. I had long discussion with the patient given the stabilization in the kidney function. The patient will have risk of contrast-induced nephropathy, but I think this is the best time to do the cardiac cath if he needs it. I explained to the patient risks, benefits, alternatives including possible worsening in the kidney function to the point may need renal replacement therapy, but unfortunately no other alternatives. The patient verbalized understanding. We will start the patient on hydration. We will give the patient 250 of normal saline. As a bolus, then we will maintain him at 50 per hour for 12 hours after the cardiac cath. I am also going to give the patient Mucomyst 1200, now then 600 after the cath for 24 hours even though there is no strong data on supporting benefit of it, but we will give the patient the benefit of the doubt. We will monitor the patient in 24 hours, 48 hours and then in 2 weeks to watch for contrast-induced nephropathy and we will follow up. 2. Hypertension. Continue current medication and we will monitor the patient. 3. Chronic kidney disease as above. Given the presence of the anemia to rule out any light chain disease, I am going to send for serum protein electrophoresis. We will send for PTH to evaluate any supplement needed. 4. Anemia possibly secondary to chronic kidney disease. I am going to go ahead and send for anemia workup and we will send for light chain disease with serum protein electrophoresis to rule out light chain disease. 5. Coronary artery disease with non-ST elevation myocardial infarction, required catheterization with the presence of chronic advanced kidney disease as above. 6. Complex renal cyst. Will need outpatient followup. Thank you, Dr. Navarro for allowing us to participate in the care of your patient. Time spent examining the patient [id number], reviewing data, lab and radiology, discussing the case with the patient, discussing the case with operations team leader including nursing and hospitalist more than 65 minutes ADIEL Voice ID: [id number] Report ID: [id number] MAME
[2022-08-05] MEDS ORDERED: ACETYLCYST 6,000 MG/30 ML VIAL PO ONE (15:00)
[2022-08-05 15:20] VITALS: BMI 22.1
[2022-08-05] MEDS ORDERED: CLOPIDOGREL 75 MG TABLET ONE (15:52)
[2022-08-05] MEDS ORDERED: VERAPAMIL HCL 10 MG/4 ML VIAL IV ONE (15:52)
[2022-08-05] MEDS ORDERED: ASPIRIN 325 MG TAB ONE (15:52)
[2022-08-05] MEDS ORDERED: MIDAZOLAM HCL 2 MG/2 ML INJ ONE (15:52)
[2022-08-05] MEDS ORDERED: FENTANYL CITR 100 MCG/2 ML ONE (15:52)
[2022-08-05] MEDS ORDERED: ATROPINE SULF 1 MG/10 ML SYR IV ONE (15:53)
[2022-08-05] MEDS ORDERED: TICAGRELOR 90 MG TABLET PO ONE (15:53)
[2022-08-05] MEDS ORDERED: HEPARIN 10,000 UNIT/10 ML VIAL IV ONE (15:55)
[2022-08-05] MEDS ORDERED: NA CHLORIDE 0.9% 500 ML ONE (16:12)
--- NOTE | 2022-08-05 17:24 | P.PN ---
Date of Service: 08/05/22 Subjective: Feeling better No longer having chest pain Denies shortness of breath, no cough ROS: 10 point ROS as noted above, otherwise negative Physical exam GEN: Alert, oriented, NAD HEENT: Normal conjunctiva, sclera anicteric CV: Regular rate and rhythm, no edema Pulm: Nonlabored respirations on room air ABD: Soft, nontender, nondistended Neuro: Normal speech, normal affect Problem List NSTEMI DM2 HLD HTN CKD 3 COVID-positive Elevated D-dimer Anemia chronic disease NSTEMI Troponin up trended, on heparin drip Cardiology consulted, plan for cardiac cath today NPO h/o CKD, start IVF nephrology consulted CKD3 Seems to be at baseline Better than it was most recent discharge 3-4 weeks ago nephrology consulted optimize patient to reduce risk of contrast-induced nephropathy Confirm chronic home medications, restart as appropriate Replete electrolytes covid+, patient states he was positive a few weeks ago hgb decreased, last hospitalization ~3-4 weeks ago, concern for upper GI bleed, possible ulcer recheck CBC patient denies any recent symptoms of GERD / ulcer denies any recent dark stools - last had dark stool for a few days during last hospitalization stool occult ordered VTE: heparin drip Code: full Dispo: home, ~1-2 days pending cath results / renal function / hgb Time Spent Managing Pts Care (In Minutes): 35
--- NOTE | 2022-08-05 19:11 | OP ---
Date of Procedure: 08/05/2022 Surgeon: ANTONIO CHANG Procedures Performed: 1.Selective coronary angiogram. 2.PCI of severe mid ramus intermedius artery stenosis which is the culprit. Used a 3.0 x 60 mm Syne rgy drug-eluting stent. Indication: Non-ST elevation myocardial infarction. Access: Right femoral artery 6-[place] closed with 6-[place] Angio-Seal. Complications: None. Bleeding: Less than 10 mL. Total amount of contrast used was 60 mL. Anesthesia: Total sedation time was 55 minutes, used fentanyl and Versed. Description Of Procedure: After risks, benefits, alternatives were explained, the patient agreed to procedure and signed informed consent. The patient was brought into the cardiac catheterization [facility], prepped and draped in the usual fashion. Then, I accessed right femoral artery using micropu ncture kit and ultrasound guidance and fluoroscopy, placed 6-[place] sheath and took a 6-Fren ch JR4 catheter into the aortic root, engaged the RCA and took standard views and then exchanged for a JL4 catheter and could not engage the left main, so I exchanged for a 6-[place] AL1 catheter, engage d left main and took standard views and then I exchanged for a 6-[place] AL1 guide and engaged the lef t main, took a Run-Through wire into the ramus intermedius artery. Gave systemic heparin to assure H CT level above 250 throughout the procedure and gave 600 of Plavix and 325 aspirin, and then the lesi on was prepped and then placed a 3.0 x 60 mm Synergy drug-eluting stent across the area of stenosis w ith excellent expansion and TEREZA-3 flow and 0% residual stenosis and removed the wire and the guide a nd the sheath, and placed a 6-[place] Angio-Seal for closure with good hemostasis. Findings: 1.Left main; large, normal. 2.LAD; proximal 40% and it is a rather very small vessel with about 2 mm vessel throughout. 3.Ramus intermedius is a large vessel with 3 to 3.5 mm vessel and to the mid segment, there was a 90 % stenosis, which is a culprit status post successful PCI as above. 4.Left circumflex is very large and normal. 5.RCA; moderate-sized vessel with mid 80% stenosis, which will be staged T2 his kidney function to a void large contrast load. Conclusion: 1.Severe mid ramus intermedius coronary artery stenosis, which is a culprit, status post successful PCI as above. 2.Moderate proximal LAD stenosis. We will plan to do FFR at a later time. 3.RCA mid 80%, which is significant for planned to do staged PCI early next week. It was not done t kelly to avoid the large contrast load due to the chronic kidney disease. Plan: 1.Continue aspirin and Plavix and high-dose statin. 2.Staged PCI of mid RCA early next week. SR/MODL Voice ID: [id number] Report ID: [id number]
[2022-08-05 20:39] VITALS: O2SAT 99
[2022-08-05] MEDS ORDERED: ACETYLCYST 6,000 MG/30 ML VIAL PO SCH (21:00)
--- NOTE | 2022-08-06 00:56 | CON ---
Date of Consultation: 08/05/2022 Reason For Consultation: Elevated troponin. History Of Present Illness: This is an 82-year-old male who comes into the emergency room with chest pain. He has a past medical history of diabetes, dyslipidemia, hypertension, presented with chest p ain in substernal area, radiates to his arms and jaw. Intensity of 5/10. Some shortness of breath i s present. There is no cough. No nausea, vomiting, or diarrhea. Past Medical History: As outlined above in the HPI. Medications: Refer to reconciliation sheet for detailed list. Allergies: NO KNOWN DRUG ALLERGIES. Family History: No premature coronary artery disease or cancer. Social History: He is an ex-smoker. Does not drink or use any drugs. Review of Systems: All systems reviewed and they are negative except what is mentioned in HPI. Physical Examination: Vital Signs: Reviewed. Head and Neck: Pupils are equal, reactive to light. Intact eye movements. No JVD. No cervical lym phadenopathy. Neck is supple. Thyroid is not enlarged. Lungs: Clear to auscultation bilaterally. No rhonchi, wheezing, or crackles. No accessory muscle u se. Heart: Regular rate and rhythm. No extra sounds. Abdomen: Soft, nontender. Bowel sounds positive. No organomegaly. No masses or hernia. No rigidi ty or rebound. Extremities: No edema, clubbing, or cyanosis. Intact pulses. Skin: No rash. Neurologic: Alert, awake, and oriented x3. No acute focal deficits appreciated. Investigations: BUN 33, creatinine 1.8, and troponin 2703. NT proBNP 6446. Assessment And Recommendation: 1.Non ST-elevation myocardial infarction. Keep him n.p.o. Plan for coronary angiogram and PCI acco rdingly. The patient's family understands the risk of worsening kidney function. However, he defini tely has typical symptoms and elevated troponins to suggest non-ST elevation myocardial infarction. We will proceed as the patient and family agreed. 2.Chronic kidney disease. We will use the least amount of contrast possible and monitor his kidney function. Consult Nephrology. 3.Congestive heart failure. Obtain an echocardiogram to assess ejection fraction and I will plan fo r diuretics as needed. 4.Dyslipidemia. Continue statin. SR/MODL Voice ID: [id number] Report ID: [id number]
[2022-08-06] MEDS ORDERED: NA CHLORIDE 0.9% 250 ML ONE (04:10)
[2022-08-06] MEDS: NA CHLORIDE 0.9% 1,000 ML IV SCH ×2 (04:35→10:00)
[2022-08-06] MEDS: INSULIN -REGULAR HUMAN 50 UNIT/0.5 ML ML SQ SCH (07:30)
[2022-08-06 07:36] LABS: RBC Red Blood Cell Count 2.71 M/uL (4.33-5.43)
[2022-08-06 08:11] LABS: Absolute Lymphocytes (CBC) 1.1 K/uL (0.7-4.9); Hematocrit 24.6 % (39.6-49.0); Lymphocytes % 15.9 % (15.3-44.8); MCV 94.8 fL (80-100); MPV 8.6 fL (7.6-11.3); RBC Red Blood Cell Count 2.59 M/uL (4.33-5.43)
[2022-08-06 08:14] LABS: Rheumatoid Factor NEG (NEG)
[2022-08-06 08:54] LABS: Ferritin 176.3 ng/mL (26-388); Folic Acid, (Folate) 14.2 ng/mL (3.1-17.5); Phosphorus 3.6 mg/dL (2.5-4.9); Potassium 3.8 mmol/L (3.5-5.1); Thyroid Stimulating Hormone 2.86 uIU/mL (0.360-3.740); Uric Acid 9.8 mg/dL (3.5-7.2)
[2022-08-06] MEDS ORDERED: CLOPIDOGREL 75 MG TABLET PO SCH (09:00)
[2022-08-06] MEDS ORDERED: ASPIRIN EC 81 MG TAB PO SCH (09:00)
[2022-08-06] MEDS: METOPROLOL TAR 50 MG TAB PO SCH ×2 (10:01→10:11)
[2022-08-06] MEDS: ATORVASTATIN 10 MG TAB PO SCH (10:11)
[2022-08-06] MEDS: allopurinoL 100 MG TAB PO SCH (10:11)
[2022-08-06] MEDS: EZETIMIBE 10 MG TAB PO SCH (10:12)
[2022-08-06] MEDS: AMLODIPINE 10 MG TAB PO SCH (10:13)
[2022-08-06 10:14] VITALS: BP 165/65
[2022-08-06] MEDS ORDERED: ACETYLCYST 20% 800 MG/4 ML VIAL PO SCH (12:00)
[2022-08-06 12:59] VITALS: TEMP 96.3
--- NOTE | 2022-08-06 13:14 | P.PN ---
Subjective Date of Service: 08/06/22 Chief Complaint: Chest pain Subjective: No new changes Physical Examination - Vital Signs Temperature: 96.3 F Blood Pressure: 165/65 Pulse: 66 Respirations: 14 Pulse Ox (%): 100 - Physical Exam General: Other (Appears as his stated age) HEENT: Atraumatic, Normocephalic Neck: Supple, JVD not distended Respiratory: Other (Symmetric chest expansion) Cardiovascular: No rubs, No murmurs Gastrointestinal: Soft and benign, No guarding Musculoskeletal: No clubbing Integumentary: No warmth Neurological: Normal tone Urinary: Other (No bladder distention) External genitalia: Deferred Rectal: Deferred Assessment And Plan - Plan 1. Proteinuric CKD 3b. 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 S/p C on 08/05. Check renal panel on 08/09 to monitor for contrast-induced nephropathy. [place] po fluid intake. 2. Hypertension. BP above goal. Switch metoprolol to carvedilol 6.25 mg po bid. 3. Anemia possibly secondary to chronic kidney disease. Monitor H/H. 4. Coronary artery disease with non-ST elevation myocardial infarction. S/p LHC on 08/05. May need another heart cath next week. 5. Complex renal cyst. Will need outpatient followup. Physician Review: Patient Assessed, Agree with Above Assessment and Plan
--- NOTE | 2022-08-06 21:13 | P.DS ---
Admission Date: 08/04/22 Discharge Date: 08/06/22 Disposition: ROUTINE DISCHARGE Discharge Condition: GOOD Reason for Admission: Chest pain Consultations: Cardiology - Dr. Horner Nephrology - Dr. Julio Petersen Brief History of Present Illness: 82-year-old male with a past medical history significant for DM 2, gout, hyperlipidemia, hypertension, osteoarthritis who presents with complaint of chest pain located in the substernal chest area onset this morning. Patient indicated that pain radiates to his arms, neck and jaw area. Patient rated pain as 5/10 in severity and described pain as pressure in quality. Patient reported associated signs and symptoms of shortness of breath, fatigue and weakness. Patient denies any other signs or symptoms. Symptoms are aggravated or relieved by nothing. Hospital Course: Problem List NSTEMI, CAD s/p PCI DM2 HLD HTN CKD 3 COVID-positive Elevated D-dimer Anemia chronic disease Patient presented with chest pain and was found to have an NSTEMI. Cardiology was consulted and patient underwent cardiac catheterization on 08/06. Found to have Severe mid ramus intermedius coronary artery stenosis, underwent successful PCI. Also noted to have moderate proximal LAD stenosis and 80% mid RCA stenosis, which Dr. Horner plans to perform next week as a staged approach to avoid large contrast load due to chronic kidney disease and risk of contrast induced nephropathy. Patient is to continue on aspirin 81mg daily, Plavix 75mg, and high dose statin. Metoprolol changes to carvedilol. Continue previous home medications Patient also noted to be anemic of chronic disease (kidneys) and iron deficiency. Start iron supplementation. Hemoccult stool testing was negative. No bleed noted. Follow up: PCP within 1 week Labs with Neprhology Tuesday Dr. Horner next week for outpatient cardiac catheterization Echocardiogram noted moderate diastolic dysfunction with heavily calcified aortic valve with aortic stenosis. Vital Signs/Physical Exam: Temp Pulse Resp BP Pulse Ox 96.3 F L 66 14 165/65 H 100 08/06/22 13:14 08/06/22 13:14 08/06/22 13:14 08/06/22 13:14 08/06/22 13:14 Physical exam GEN: Alert, oriented, NAD HEENT: Normal conjunctiva, sclera anicteric CV: Regular rate and rhythm, no edema Pulm: Nonlabored respirations on room air ABD: Soft, nontender, nondistended Neuro: Normal speech, normal affect Laboratory Data at Discharge: WBC 6.80 K/uL (4.3-10.9) 08/06/22 07:17 Hgb 8.4 g/dL (13.6-17.9) L 08/06/22 07:17 Hct 24.6 % (39.6-49.0) L 08/06/22 07:17 Plt Count 240 K/uL (152-406) 08/06/22 07:17 PT 12.0 SECONDS (9.5-12.5) 08/04/22 18:45 INR 1.09 08/04/22 18:45 APTT 27.9 SECONDS (24.3-36.9) 08/06/22 07:17 Sodium 143 mmol/L (136-145) 08/06/22 07:17 Potassium 3.8 mmol/L (3.5-5.1) 08/06/22 07:17 BUN 28 mg/dL (7-18) H 08/06/22 07:17 Creatinine 1.70 mg/dL (0.55-1.3) H 08/06/22 07:17 Glucose 110 mg/dL (74-106) H 08/06/22 07:17 Uric Acid 9.8 mg/dL (3.5-7.2) H 08/06/22 07:17 Phosphorus 3.6 mg/dL (2.5-4.9) 08/06/22 07:17 Magnesium 1.8 mg/dL (1.8-2.4) 08/04/22 18:45 Total Bilirubin 0.6 mg/dL (0.2-1.0) 08/04/22 11:58 AST 25 U/L (15-37) 08/04/22 11:58 ALT 29 U/L (12-78) 08/04/22 11:58 Alkaline Phosphatase 94 U/L (45-117) 08/04/22 11:58 Home Medications: Allopurinol 1 tab PO DAILY 07/15/22 Amlodipine Besylate 1 tab PO DAILY 07/15/22 Ezetimibe 1 tab PO DAILY 07/15/22 Glimepiride 1 tab PO DAILY 07/15/22 Pravastatin Sodium 1 tab PO DAILY 07/15/22 Clopidogrel Bisulfate [Plavix*] 75 mg PO DAILY 30 Days #30 tab 08/06/22 Ferrous Sulfate [Iron] 325 mg PO DAILY 30 Days #30 tab 08/06/22 carvediloL [Coreg] 6.25 mg PO BID 30 Days #60 tab 08/06/22 New Medications: carvediloL [Coreg] 6.25 mg PO BID 30 Days #60 tab Ferrous Sulfate [Iron] 325 mg PO DAILY 30 Days #30 tab Clopidogrel Bisulfate [Plavix*] 75 mg PO DAILY 30 Days #30 tab Physician Discharge Instructions: Patient presented with chest pain and was found to have an NSTEMI. Cardiology was consulted and patient underwent cardiac catheterization on 08/06. Found to have Severe mid ramus intermedius coronary artery stenosis, underwent successful PCI. Also noted to have moderate proximal LAD stenosis and 80% mid RCA stenosis, which Dr. Horner plans to perform next week as a staged approach to avoid large contrast load due to chronic kidney disease and risk of contrast induced nephropathy. Patient is to continue on aspirin 81mg daily, Plavix 75mg, and high dose statin. Metoprolol changes to carvedilol. Continue previous home medications Patient also noted to be anemic of chronic disease (kidneys) and iron deficiency. Start iron supplementation. Hemoccult stool testing was negative. No bleed noted. Follow up: PCP within 1 week Labs with Neprhology Tuesday Dr. Horner next week for outpatient cardiac catheterization Echocardiogram noted moderate diastolic dysfunction with heavily calcified aortic valve with aortic stenosis. Diet: AHA Followup: NONE,NONE [Primary Care Provider] - Dequan Horner MD [ACTIVE - CAN ADMIT] - 1 Week (Call to make appointment) Time spent managing pt's care (in minutes): 45
--- NOTE | 2022-08-07 04:23 | PN ---
Date of Progress Note: 08/06/2022 Subjective: Seen at bedside, doing clinically well. No further chest pain. Review of Systems: No chest pain, shortness of breath, orthopnea, or cough. No nausea, vomiting, or diarrhea. No abdom inal pain. No dysuria, polyuria, or urgency. No skin rash. All other systems reviewed are negative . Objective: Vital Signs: Reviewed. Head and Neck: Pupils are equal, reactive to light. Intact eye movements. No JVD. No cervical lym phadenopathy. Neck is supple. Thyroid is not enlarged. Lungs: Clear to auscultation bilaterally. No rhonchi, wheezing, or crackles. No accessory muscle u se. Heart: Regular rate and rhythm. No extra sounds. Abdomen: Soft, nontender. Bowel sounds positive. No organomegaly. No masses or hernia. No rigidi ty or rebound. Extremities: No clubbing, cyanosis. Intact pulses. Skin: No rash. Neurologic: Alert, awake, and oriented x3. No acute focal deficits appreciated. Investigations: BUN 28, creatinine 1.7. Assessment And Recommendation: 1.Non-ST elevation myocardial infarction. Culprit was the ramus intermedius disease, status post del cid ccessful PCI. Still has a residual mid RCA stenosis that needs PCI, which will be done in about 4 we eks due to chronic kidney disease. Continue aspirin and Plavix as well as high-dose statin. 2.Dyslipidemia. Recommend high-dose statin, Lipitor 40 mg, adjust dose of 40 mg at bedtime. 3.Chronic kidney disease. In fact, his creatinine improved. We hydrated him yesterday and used onl y 60 cc of contrast. We planned to stage the PCI of the RCA in about 4 months to be done as an outpatient. SR/MODL Voice ID: [id number] Report ID: [id number]
[2022-08-09 18:51] LABS: Hepatitis C Virus RNA (PCR)log <1.18 log IU/mL
[2022-08-10 14:48] LABS: HIV AG/AB 4TH GEN Non-reactive (Non-reactive)
[2022-08-10 21:58] LABS: Albumin, (SPE) 2.7 g/dL (3.8-4.8); Alpha-1-Globulins 0.4 g/dL (0.2-0.3); Gamma Globulins 0.7 g/dL (0.8-1.7); INTERPRETATION REPORT
== END 2022-08-06 15:40 | disposition home or self-care (01) | DRG 246 ==
LOC: ER 11:37 → ERHOLD 13:50 → 4TH 17:38
PROVIDERS: ADMIT Hospitalist; ATTEND Hospitalist
PROC: 027034Z Dilation of Coronary Artery, One Artery with Drug-eluting Intraluminal Device, Percutaneous Approach (ICD-10-PCS; principal; 2022-08-05)
PROC: 4A023N7 Measurement of Cardiac Sampling and Pressure, Left Heart, Percutaneous Approach (ICD-10-PCS; 2022-08-05)
PROC: B2111ZZ Fluoroscopy of Multiple Coronary Arteries using Low Osmolar Contrast (ICD-10-PCS; 2022-08-05)
DX: I21.4 Non-ST elevation (NSTEMI) myocardial infarction (principal); U07.1 COVID-19; I25.10 Atherosclerotic heart disease of native coronary artery without angina pectoris; I12.9 Hypertensive chronic kidney disease with stage 1 through stage 4 chronic kidney disease, or unspecified chronic kidney disease; N18.32 Chronic kidney disease, stage 3b; E11.22 Type 2 diabetes mellitus with diabetic chronic kidney disease; E11.40 Type 2 diabetes mellitus with diabetic neuropathy, unspecified; D63.1 Anemia in chronic kidney disease; D63.8 Anemia in other chronic diseases classified elsewhere; D50.9 Iron deficiency anemia, unspecified; M10.9 Gout, unspecified; I35.0 Nonrheumatic aortic (valve) stenosis; N28.1 Cyst of kidney, acquired; E83.42 Hypomagnesemia; E78.5 Hyperlipidemia, unspecified; M19.90 Unspecified osteoarthritis, unspecified site; R79.89 Other specified abnormal findings of blood chemistry; Z79.02 Long term (current) use of antithrombotics/antiplatelets; Z79.82 Long term (current) use of aspirin; Z79.84 Long term (current) use of oral hypoglycemic drugs; Z79.899 Other long term (current) drug therapy; Z87.891 Personal history of nicotine dependence
CPT/HCPCS: 36415; 71045; 76937; 80048; 80069; 80076; 82274; 82607; 82652; 82728; 82746; 82947; 83520; 83540; 83735; 83880; 83970; 84100; 84165; 84439; 84443; 84466; 84484; 84550; 85025; 85027; 85044; 85347; 85379; 85610; 85730; 86021; 86038; 86160; 86225; 86317; 86430; 86704; 86706; 87340; 87389; 87522; 93005; 93306; 93454; 99284; C1725; C1893; C9600; J1644; J1940; J2250; J3010; J7030; J7040; J7050; Q9967; U0003

== ENCOUNTER 2022-09-20 10:54 | Day surgery (SDC) | payer OTHER, MEDICARE ==
[2022-09-16 10:52] LABS: Absolute Lymphocytes (CBC) 0.9 K/uL (0.7-4.9); Hematocrit 30.1 % (39.6-49.0); Lymphocytes % 13.8 % (15.3-44.8); MCV 94.4 fL (80-100); MPV 8.6 fL (7.6-11.3); RBC Red Blood Cell Count 3.18 M/uL (4.33-5.43)
[2022-09-16 10:56] LABS: Protime INR 1.06
[2022-09-16 11:04] LABS: Potassium 4.5 mmol/L (3.5-5.1)
--- NOTE | 2022-09-16 16:00 | EKG ---
Test Date: 2022-09-16 Test Time: 10:32:00 Bakeshop Cleaner: ALEC MEASUREMENT RESULTS: Intervals: Rate: 76 MT: 324 QRSD: 92 QT: 394 QTc: 443 [place]: P: 84 MT: 324 QRS: 16 T: 9 INTERPRETIVE STATEMENTS: Sinus rhythm with 1st degree AV block Otherwise normal ECG Compared to ECG 08/04/2022 11:52:44 First degree AV block now present Accelerated junctional rhythm no longer present ST (T wave) deviation no longer present Prolonged QT interval no longer present Electronically Signed On 09-16-22 15:59:29 PROCESS EQUIPMENT OPERATOR by Dequan Horner
[2022-09-20] MEDS ORDERED: NA CHLORIDE 0.9% 500 ML ONE (10:58)
[2022-09-20] MEDS ORDERED: LIDOCAINE 1% 20 ML MDV ONE (11:42)
[2022-09-20] MEDS ORDERED: HEPA 1000U/500MLS 2,000 UNIT/1,000 ML BAG IV ONE (11:42)
[2022-09-20] MEDS ORDERED: FENTANYL CITR 100 MCG/2 ML ONE (11:43)
[2022-09-20] MEDS ORDERED: MIDAZOLAM HCL 2 MG/2 ML INJ ONE (11:43)
[2022-09-20] MEDS ORDERED: CLOPIDOGREL 75 MG TABLET ONE (11:43)
[2022-09-20] MEDS ORDERED: ATROPINE SULF 1 MG/10 ML SYR IV ONE (11:44)
[2022-09-20] MEDS ORDERED: TICAGRELOR 90 MG TABLET PO ONE (11:44)
[2022-09-20] MEDS ORDERED: ASPIRIN 325 MG TAB ONE (11:44)
[2022-09-20] MEDS ORDERED: REGADENOSON 0.4 MG/5 ML SYR IV ONE (11:44)
[2022-09-20] MEDS ORDERED: HEPARIN 10,000 UNIT/10 ML VIAL IV ONE ×2 (11:44→12:38)
[2022-09-20] MEDS ORDERED: DIPHENHYDRAMINE 50 MG/ML VIAL ONE (11:46)
[2022-09-20] MEDS ORDERED: METHYLPREDNISOLONE 125 MG INJ ONE (11:46)
[2022-09-20] MEDS ORDERED: HEPA 1000U/500MLS 1,000 UNIT/500 ML BAG IV ONE (11:58)
[2022-09-20] MEDS ORDERED: NACHLORIDE 0.45% 1,000 ML IV ONE (13:43)
[2022-09-20 15:50] VITALS: BP 142/67; O2SAT 99
--- NOTE | 2022-09-21 22:18 | OP ---
Date of Procedure: 09/20/2022 Surgeon: ANTONIO CHANG Procedures Performed: 1.Selective coronary angiogram. 2.PCI of severe proximal mid and distal RCA. We used the 3.0 x 20 mm Synergy drug-eluting stent for the distal portion and then mid to proximal used a 3.5 x 32 mm Synergy drug-eluting stent overlapped proximally with another one 3.5 x 60 mm Synergy drug-eluting stent. Indication: Known severe coronary artery disease with chest pain. Access: Right femoral artery 6-[place] closed with a 6-[place] Angio-Seal. Complications: None. Estimated Blood Loss: Bleeding less than 10 mL. Description Of Procedure: After the risks, benefits, and alternatives were explained, the patient ag tello to procedure and signed informed consent. Patient was brought into the cardiac catheterization laboratory and prepped and draped in usual sterile fashion. We used fentanyl and Versed in increment al dosage to achieve moderate sedation. Total sedation time was 60 minutes. I accessed right femora l artery using micropuncture kit, fluoroscopy, and ultrasound guidance and placed a 6-[place] sheath and took 6-[place] JR4 guide into the aortic root, engaged the RCA, and took short Runthrough wire into the RCA, placed it distally. The distal lesion was a predilated and also predilated the mi d and proximal lesions and then delivered the stent with the help of the GuideLiner to the distal por tion, a 3.0 x 20 mm Synergy drug-eluting stent. I then placed a 3.5 x 32 mm Synergy drug-eluting connor nt in the midportion overlapped with another one of 3.5 x 60 mm Synergy drug-eluting stent all the wa y to the ostium with excellent results at the end. The patient was given heparin throughout the proc edure to assure ACT level above 250 and also patient was loaded with Plavix and aspirin. At the end of the procedure, angiographically was satisfactory. I then removed the wire and the guide and the s eliel, placed a 6-[place] Angio-Seal for closure with good hemostasis. Findings: Severe ostial proximal, mid, and distal RCA status post successful PCI as above. Plan: Continue aspirin, Plavix, and high-dose statin and follow up with me in the office in 4 weeks. SR/MODL Voice ID: [id number] Report ID: [id number]
== END 2022-09-20 16:03 | disposition home or self-care (01) ==
LOC: CCL 10:54
PROVIDERS: ATTEND Internal Medicine
DX: I25.10 Atherosclerotic heart disease of native coronary artery without angina pectoris (principal); I25.2 Old myocardial infarction; I10 Essential (primary) hypertension; I44.0 Atrioventricular block, first degree; E78.5 Hyperlipidemia, unspecified; Z79.899 Other long term (current) drug therapy; Z91.041 Radiographic dye allergy status; Z91.013 Allergy to seafood
CPT/HCPCS: 36415; 76937; 80048; 82947; 85025; 85347; 85610; 85730; 93005; 93454; C1725; C1760; C1893; C9600; G0269; J0461; J1200; J1644; J2250; J2785; J2930; J3010; J7040; Q9966

== ENCOUNTER 2023-10-03 04:39 | Observation (INO) | payer OTHER, MEDICARE ==
--- OUTSIDE RECORDS SUMMARY | 2023-10-03 04:41 | XMS REPORT | Continuity of Care Document ---
Author Name Unknown Address [address] [facility] [facility] [place] [address] [facility] thconnect Address [address] [place] [address] Care Team Providers Care Car Park Attendant Name Role Phone Thuan Valencia Primary Care Physician RADHA RADER Attending Clinician Radha Rea Attending Clinician ERVIN SINGH Attending Clinician Ariella vailable Ervin Singh MD Attending Clinician SMOOTH ALVAREZ Attending Clinician Unavailable Doctor Unassigned, [place] Attending Clinician U RADHA Adhikari Admitting Clinician ERVIN Villaseñor Admitting Clinician Arilela vailable Payers Payer Name Policy Type Policy Number Effective Date Expirati on Date Source MEDICARE PART A \T\ B [id number] 2003 00:00:00 [facility] MEDICARE SUPPLEMENT [id number] 2022 00:00:00 Allergies, Adverse Reactions, Alerts Allergy Name Allergy Type Status Severity Reaction(s) Onset Date Inactive Date Treating Clinician Comments Source NO KNOWN ALLERGIE S Drug Class Active [facility] Social History Social Habit Start Date Stop Date Quantity Comments Source Sexual orientation U [facility] Exposure to SARS-CoV-2 (event) 2023-01-22 00:00:00 2023-02-01 09:31:00 Not sure [facility] Sex Assigned At 1940 00:00:00 1940 00:00:00 [facility] Smoking Status Start Date Stop Date Source Tobacco smoking consumption unknown [facility] Medications Ordered Medication Name Filled Medication Name Start Date Stop Date Current Medication? Ordering Clinician Indication Dosage Frequency Signature (SIG) Comments Components Source ergocalcife rol, vitamin D2, (VITAMIN D ORAL) 2022-10 10:37: 26 Yes Take by mouth. [facility] ergocalcife rol, vitamin D2, (VITAMIN D ORAL) 2022-10 10:37: 26 Yes Take by mouth. [facility] ergocalcife rol, vitamin D2, (VITAMIN D ORAL) 2022-10 10:37: 26 Yes Take by mouth. [facility] ergocalcife rol, vitamin D2, (VITAMIN D ORAL) 2022-10 10:37: 26 Yes Take by mouth. [facility] ergocalcife rol, vitamin D2, (VITAMIN D ORAL) 2022-10 10:37: 26 Yes Take by mouth. [facility] atorvastati n 40 mg tablet 2022-10 10:36: 23 Yes 40mg Take 1 tablet by mouth at bedtime. [facility] atorvastati n 40 mg tablet 2022-10 10:36: 23 Yes 40mg Take 1 tablet by mouth at bedtime. [facility] atorvastati n 40 mg tablet 2022-10 10:36: 23 Yes 40mg Take 1 tablet by mouth at bedtime. [facility] atorvastati n 40 mg tablet 2022-10 10:36: 23 Yes 40mg Take 1 tablet by mouth at bedtime. [facility] atorvastati n 40 mg tablet 2022-10 10:36: 23 Yes 40mg Take 1 tablet by mouth at bedtime. [facility] losartan 25 mg tablet 2022-10 00:00: 00 Yes TAKE ONE-HALF (1/2) TABLET(S) BY MOUTH ONCE A DAY. [facility] losartan 25 mg tablet 2022-10 00:00: 00 Yes TAKE ONE-HALF (1/2) TABLET(S) BY MOUTH ONCE A DAY. [facility] losartan 25 mg tablet 2022-10 0-13 00:00: 00 Yes TAKE ONE-HALF (1/2) TABLET(S) BY MOUTH ONCE A DAY. [facility] losartan 25 mg tablet 2022-10 0-13 00:00: 00 Yes TAKE ONE-HALF (1/2) TABLET(S) BY MOUTH ONCE A DAY. [facility] losartan 25 mg tablet 2022-10 0-13 00:00: 00 Yes TAKE ONE-HALF (1/2) TABLET(S) BY MOUTH ONCE A DAY. [facility] atorvastati n 40 mg tablet 2022-0 4-11 08:55: 00 Yes 40mg Take 1 tablet by mouth at bedtime. [facility] atorvastati n 40 mg tablet 2022-0 4-11 08:55: 00 Yes 40mg Take 1 tablet by mouth at bedtime. [facility] atorvastati n 40 mg tablet 2022-0 4-11 08:55: 00 Yes 40mg Take 1 tablet by mouth at bedtime. [facility] atorvastati n 40 mg tablet 2022-0 4-11 08:55: 00 Yes 40mg Take 1 tablet by mouth at bedtime. [facility] ferrous gluconate 324 mg (38 mg iron) tablet 2022-0 320 00:00: 00 Yes 324mg Take 1 tablet by mouth every morning. [facility] ferrous gluconate 324 mg (38 mg iron) tablet 2022-0 3-20 00:00: 00 Yes 324mg Take 1 tablet by mouth every morning. [facility] ferrous gluconate 324 mg (38 mg iron) tablet 2022-0 3-20 00:00: 00 Yes 324mg Take 1 tablet by mouth every morning. [facility] ferrous gluconate 324 mg (38 mg iron) tablet 2022-0 3-20 00:00: 00 Yes 324mg Take 1 tablet by mouth every morning. [facility] ferrous gluconate 324 mg (38 mg iron) tablet 2022-0 3-20 00:00: 00 Yes 324mg Take 1 tablet by mouth every morning. [facility] ferrous gluconate 324 mg (38 mg iron) tablet 2022-0 3-20 00:00: 00 Yes 324mg Take 1 tablet by mouth every morning. [facility] ferrous gluconate 324 mg (38 mg iron) tablet 2022-0 3-20 00:00: 00 Yes 324mg Take 1 tablet by mouth every morning. [facility] ferrous gluconate 324 mg (38 mg iron) tablet 2022-0 3-20 00:00: 00 Yes 324mg Take 1 tablet by mouth every morning. [facility] ferrous gluconate 324 mg (38 mg iron) tablet 2022-0 3-20 00:00: 00 Yes 324mg Take 1 tablet by mouth every morning. [facility] carvediloL 6.25 mg tablet 2022-0 2-16 00:00: 00 Yes 6.25mg Take 1 tablet by mouth in the morning and 1 tablet in the evening. [facility] febuxostat 40 mg tablet 2022-0 2-16 00:00: 00 Yes 40mg Take 1 tablet by mouth as needed. Q AM prn gout [facility] carvediloL 6.25 mg tablet 3-0 2-16 00:00: 00 Yes 6.25mg Take 1 tablet by mouth in the morning and 1 tablet in the evening. [facility] febuxostat 40 mg tablet 3-0 2-16 00:00: 00 Yes 40mg Take 1 tablet by mouth as needed. Q AM prn gout [facility] carvediloL 6.25 mg tablet 3-0 2-16 00:00: 00 Yes 6.25mg Take 1 tablet by mouth in the morning and 1 tablet in the evening. [facility] febuxostat 40 mg tablet 3-0 2-16 00:00: 00 Yes 40mg Take 1 tablet by mouth as needed. Q AM prn gout [facility] carvediloL 6.25 mg tablet 3-0 2-16 00:00: 00 Yes 6.25mg Take 1 tablet by mouth in the morning and 1 tablet in the evening. [facility] febuxostat 40 mg tablet 3-0 2-16 00:00: 00 Yes 40mg Take 1 tablet by mouth as needed. Q AM prn gout [facility] carvediloL 6.25 mg tablet 3-0 2-16 00:00: 00 Yes 6.25mg Take 1 tablet by mouth in the morning and 1 tablet in the evening. [facility] febuxostat 40 mg tablet 3-0 2-16 00:00: 00 Yes 40mg Take 1 tablet by mouth as needed. Q AM prn gout [facility] carvediloL 6.25 mg tablet 3-0 2-16 00:00: 00 Yes 6.25mg Take 1 tablet by mouth in the morning and 1 tablet in the evening. [facility] febuxostat 40 mg tablet 3-0 2-16 00:00: 00 Yes 40mg Take 1 tablet by mouth as needed. Q AM prn gout [facility] carvediloL 6.25 mg tablet 3-0 2-16 00:00: 00 Yes 6.25mg Take 1 tablet by mouth in the morning and 1 tablet in the evening. [facility] febuxostat 40 mg tablet 3-0 2-16 00:00: 00 Yes 40mg Take 1 tablet by mouth as needed. Q AM prn gout [facility] carvediloL 6.25 mg tablet 3-0 2-16 00:00: 00 Yes 6.25mg Take 1 tablet by mouth in the morning and 1 tablet in the evening. [facility] febuxostat 40 mg tablet 3-0 2-16 00:00: 00 Yes 40mg Take 1 tablet by mouth as needed. Q AM prn gout [facility] carvediloL 6.25 mg tablet 3-0 2-16 00:00: 00 Yes 6.25mg Take 1 tablet by mouth in the morning and 1 tablet in the evening. [facility] febuxostat 40 mg tablet 3-0 2-16 00:00: 00 Yes 40mg Take 1 tablet by mouth as needed. Q AM prn gout [facility] clopidogreL 75 mg tablet 3-0 2-15 00:00: 00 Yes 75mg Take 1 tablet by mouth every morning. [facility] clopidogreL 75 mg tablet 3-0 2-15 00:00: 00 Yes 75mg Take 1 tablet by mouth every morning. [facility] clopidogreL 75 mg tablet 3-0 2-15 00:00: 00 Yes 75mg Take 1 tablet by mouth every morning. [facility] clopidogreL 75 mg tablet 3-0 2-15 00:00: 00 Yes 75mg Take 1 tablet by mouth every morning. [facility] clopidogreL 75 mg tablet 3-0 2-15 00:00: 00 Yes 75mg Take 1 tablet by mouth every morning. [facility] clopidogreL 75 mg tablet 3-0 2-15 00:00: 00 Yes 75mg Take 1 tablet by mouth every morning. [facility] clopidogreL 75 mg tablet 3-0 2-15 00:00: 00 Yes 75mg Take 1 tablet by mouth every morning. [facility] clopidogreL 75 mg tablet 3-0 2-15 00:00: 00 Yes 75mg Take 1 tablet by mouth every morning. [facility] clopidogreL 75 mg tablet 3-0 2-15 00:00: 00 Yes 75mg Take 1 tablet by mouth every morning. [facility] glimepiride 1 mg tablet 3-0 2-07 00:00: 00 Yes 1mg Take 1 tablet by mouth in the morning and 1 tablet in the evening. [facility] glimepiride 1 mg tablet 3-0 2-07 00:00: 00 Yes 1mg Take 1 tablet by mouth in the morning and 1 tablet in the evening. [facility] glimepiride 1 mg tablet 3-0 2-07 00:00: 00 Yes 1mg Take 1 tablet by mouth in the morning and 1 tablet in the evening. [facility] glimepiride 1 mg tablet 3-0 2-07 00:00: 00 Yes 1mg Take 1 tablet by mouth in the morning and 1 tablet in the evening. [facility] glimepiride 1 mg tablet 3-0 2-07 00:00: 00 Yes 1mg Take 1 tablet by mouth in the morning and 1 tablet in the evening. [facility] glimepiride 1 mg tablet 2022-0 2- 00:00: 00 Yes 1mg Take 1 tablet by mouth in the morning and 1 tablet in the evening. [facility] glimepiride 1 mg tablet 2022-0 2- 00:00: 00 Yes 1mg Take 1 tablet by mouth in the morning and 1 tablet in the evening. [facility] glimepiride 1 mg tablet 2022-0 2- 00:00: 00 Yes 1mg Take 1 tablet by mouth in the morning and 1 tablet in the evening. [facility] glimepiride 1 mg tablet 2022-0 2- 00:00: 00 Yes 1mg Take 1 tablet by mouth in the morning and 1 tablet in the evening. [facility] ezetimibe 10 mg tablet 2022-0 2- 00:00: 00 Yes 10mg Take 1 tablet by mouth every morning. [facility] pantoprazol e 40 mg EC tablet 2022-0 2- 00:00: 00 Yes 40mg Take 1 tablet by mouth in the morning. [facility] hydrALAZINE 25 mg tablet 2022-0 2- 00:00: 00 Yes 25mg Take 1 tablet by mouth in the morning and 1 tablet in the evening. [facility] ezetimibe 10 mg tablet 2022-0 2- 00:00: 00 Yes 10mg Take 1 tablet by mouth every morning. [facility] pantoprazol e 40 mg EC tablet 2022-0 2- 00:00: 00 Yes 40mg Take 1 tablet by mouth in the morning. [facility] hydrALAZINE 25 mg tablet 2022-0 2- 00:00: 00 Yes 25mg Take 1 tablet by mouth in the morning and 1 tablet in the evening. [facility] ezetimibe 10 mg tablet 2022-0 2- 00:00: 00 Yes 10mg Take 1 tablet by mouth every morning. [facility] pantoprazol e 40 mg EC tablet 2022-0 2- 00:00: 00 Yes 40mg Take 1 tablet by mouth in the morning. [facility] hydrALAZINE 25 mg tablet 0 2- 00:00: 00 Yes 25mg Take 1 tablet by mouth in the morning and 1 tablet in the evening. [facility] ezetimibe 10 mg tablet 0 2- 00:00: 00 Yes 10mg Take 1 tablet by mouth every morning. [facility] pantoprazol e 40 mg EC tablet 0 2- 00:00: 00 Yes 40mg Take 1 tablet by mouth in the morning. [facility] hydrALAZINE 25 mg tablet 0 2- 00:00: 00 Yes 25mg Take 1 tablet by mouth in the morning and 1 tablet in the evening. [facility] ezetimibe 10 mg tablet 0 - 00:00: 00 Yes 10mg Take 1 tablet by mouth every morning. [facility] pantoprazol e 40 mg EC tablet 0 - 00:00: 00 Yes 40mg Take 1 tablet by mouth in the morning. [facility] hydrALAZINE 25 mg tablet 0 2- 00:00: 00 Yes 25mg Take 1 tablet by mouth in the morning and 1 tablet in the evening. [facility] ezetimibe 10 mg tablet 0 - 00:00: 00 Yes 10mg Take 1 tablet by mouth every morning. [facility] pantoprazol e 40 mg EC tablet 0 2- 00:00: 00 Yes 40mg Take 1 tablet by mouth in the morning. [facility] hydrALAZINE 25 mg tablet 0 2- 00:00: 00 Yes 25mg Take 1 tablet by mouth in the morning and 1 tablet in the evening. [facility] ezetimibe 10 mg tablet 0 2- 00:00: 00 Yes 10mg Take 1 tablet by mouth every morning. [facility] pantoprazol e 40 mg EC tablet 2022-0 2- 00:00: 00 Yes 40mg Take 1 tablet by mouth in the morning. [facility] hydrALAZINE 25 mg tablet 2022-0 2- 00:00: 00 Yes 25mg Take 1 tablet by mouth in the morning and 1 tablet in the evening. [facility] ezetimibe 10 mg tablet 0 2- 00:00: 00 Yes 10mg Take 1 tablet by mouth every morning. [facility] pantoprazol e 40 mg EC tablet 0 2- 00:00: 00 Yes 40mg Take 1 tablet by mouth in the morning. [facility] hydrALAZINE 25 mg tablet 0 2- 00:00: 00 Yes 25mg Take 1 tablet by mouth in the morning and 1 tablet in the evening. [facility] ezetimibe 10 mg tablet 0 2- 00:00: 00 Yes 10mg Take 1 tablet by mouth every morning. [facility] pantoprazol e 40 mg EC tablet 2- 00:00: 00 Yes 40mg Take 1 tablet by mouth in the morning. [facility] hydrALAZINE 25 mg tablet 2- 00:00: 00 Yes 25mg Take 1 tablet by mouth in the morning and 1 tablet in the evening. [facility] amLODIPine 10 mg tablet 2022-0 1-16 00:00: 00 Yes 10mg Take 1 tablet by mouth every morning. [facility] amLODIPine 10 mg tablet 2022-0 -16 00:00: 00 Yes 10mg Take 1 tablet by mouth every morning. [facility] amLODIPine 10 mg tablet 2022-0 1-16 00:00: 00 Yes 10mg Take 1 tablet by mouth every morning. [facility] amLODIPine 10 mg tablet 2022-0 -16 00:00: 00 Yes 10mg Take 1 tablet by mouth every morning. [facility] amLODIPine 10 mg tablet 2022-0 1-16 00:00: 00 Yes 10mg Take 1 tablet by mouth every morning. [facility] amLODIPine 10 mg tablet 2022-0 1-16 00:00: 00 Yes 10mg Take 1 tablet by mouth every morning. [facility] amLODIPine 10 mg tablet 2022-0 1-16 00:00: 00 Yes 10mg Take 1 tablet by mouth every morning. [facility] amLODIPine 10 mg tablet 10-25 00:00: 00 Yes 10mg Take 1 tablet by mouth every morning. [facility] amLODIPine 10 mg tablet 10-25 00:00: 00 Yes 10mg Take 1 tablet by mouth every morning. [facility] Vital Signs Vital Name Observation Time Observation Value Comments S ource Systolic blood pressure 2023-08-03 15:38:00 175 mm[Hg] [facility] Diastolic blood pressure 2023-08-03 15:38:00 66 mm[Hg] [facility] Heart rate 2023-08-03 15:38:00 58 /min [facility] Oxygen saturation in Arterial blood by Pulse oximetry 2023-08-03 15:38:00 99 /min [facility] Body temperature 2023-08-03 15:34:00 36.72 Suzanna [facility] Respiratory rate 2023-08-03 15:34:00 18 /min [facility] Body weight 2023-08-03 15:34:00 78.472 kg [facility] BMI 2023-08-03 15:34:00 25.55 kg/m2 [facility] Systolic blood pressure 2023-02-01 14:23:00 144 mm[Hg] [facility] Diastolic blood pressure 2023-02-01 14:23:00 59 mm[Hg] [facility] Heart rate 2023-02-01 14:23:00 61 /min [facility] Body temperature 2023-02-01 14:23:00 36.56 Suzanna [facility] Body weight 2023-02-01 14:23:00 78.79 kg [facility] BMI 2023-02-01 14:23:00 25.65 kg/m2 [facility] Oxygen saturation in Arterial blood by Pulse oximetry 2023-02-01 14:23:00 98 /min [facility] Procedures Procedure Date / Time Performed Performing Clinicia n Source POCT URINALYSIS AUTO 2023-08-03 15:39:00 Rogelio Rader [facility] ASSIGNMENT OF BENEFITS 2023-01-18 13:15:03 Docto r Unassigned, [place] [facility] Encounters Start Date/Time End Date/Time Encounter Type Admission Type Attending [facility] Care Department Encounter ID Source 2024-01-31 11:00:00 2024-01-31 11:00:00 Outpatient R MACIE RADERTNEY [facility] [id number] [facility] 2023-08-12 00:00:00 2023-08-12 00:00:00 Telephone Macie Radertney [facility] [id number] [facility] 2023-08-08 15:14:48 2023-08-08 23:59:00 Outpatient R RADER RADHA [facility] [id number] [facility] 2023-08-08 15:14:48 2023-08-08 23:59:00 Hospital Encounter Radha Rader [facility] [id number] [facility] 2023-08-03 10:30:00 2023-08-03 10:58:32 Outpatient R RADER, RADHA [facility] [id number] [facility] 2023-08-03 10:30:00 2023-08-03 10:58:32 Office Visit Radha Rader [facility] [id number] [facility] 2023-02-28 13:11:58 2023-02-28 23:59:00 Outpatient R ERVIN SINGH [facility] [id number] [facility] 2023-02-28 13:11:58 2023-02-28 23:59:00 Hospital Encounter Ervin Singh [facility] [id number] [facility] 2023-02-01 09:45:00 2023-02-01 10:15:00 Office Visit Ervin Singh [facility] [id number] [facility] 2023-02-01 09:45:00 2023-02-01 09:45:00 Outpatient R ERVIN SINGH [facility] [id number] [facility] 2023-01-18 08:30:00 2023-01-18 09:06:56 Outpatient R SMOOTH ALVAREZ [facility] [id number] [facility] 2023-01-18 00:00:00 2023-01-18 00:00:00 Orders Only Doctor Unassigned, [place] [facility] [id number] [facility] Results Test Description Test Time Test Comments Results Result Co mments Source [facility] [id number] 15:40:00 * Test Item Value Reference Range Interpretation Comme nts POCT U SP GRAV (test code = 3255) 1.020 mg/dl 1.005-1.025 POCT PH U (test code = 3254) 5.5 mg/dl 5-8 POCT U LEUK EST (test code = 3263) negative Negative - Negative POCT U NIT (test code = 3262) negative Negative - Negati ve POCT U PROT (test code = 3259) 300 Negative - Negative POCT U GLU (test code = 3256) negative Negative - Negati ve POCT U KETONE (test code = 3258) negative Negative - Negative POCT U UROBILI (test code = 3260) negaitve 0.2-1 POCT U BILI (test code = 3267) negative Negative - Negative POCT U BLD (test code = 0487) negative Negative - Negati ve POCT U COLOR (test code = 4916) yellow POCT U APPEAR (test code = 2909) clear [facility]
[2023-10-03] MEDS ORDERED: IPRATROPIUM BROM 0.5MG/2.5ML ONE ×2 (05:19→05:32)
[2023-10-03] MEDS ORDERED: ALBUTEROL 2.5 MG/3 ML NEB SOL ONE ×2 (05:19→05:31)
[2023-10-03] MEDS ORDERED: VANCOMYCIN 1 GM/VIAL ONE (05:19)
[2023-10-03 05:20] LABS: Arterial Blood Carboxyhemoglob 1.5 % (0-1.5); Blood Gas Oxyhemoglobin 64.3 % (94-97); Blood O2 Saturation 66.7 % (92-98.5)
[2023-10-03] MEDS ORDERED: ACETAMINOPHEN 500 MG TAB ONE (05:20)
[2023-10-03] MEDS ORDERED: NA CHLORIDE 0.9% 250 ML ONE (05:21)
[2023-10-03] MEDS ORDERED: NA CHLORIDE 0.9% 500 ML ONE (05:21)
[2023-10-03] MEDS ORDERED: NA CHLORIDE 0.9% 100 ML ONE (05:22)
[2023-10-03] MEDS ORDERED: PIPERACIL/TAZO 3.375 GM VIAL IV ONE (05:22)
[2023-10-03 05:50] LABS: Absolute Lymphocytes (CBC) 0.6 K/uL (0.7-4.9); Hematocrit 30.8 % (39.6-49.0); Lymphocytes % 3.7 % (15.3-44.8); MCV 93.4 fL (80-100); MPV 9.2 fL (7.6-11.3); Platelets 185 thou/uL (152-406)
[2023-10-03 06:07] LABS: Albumin 3.3 g/dL (3.4-5.0); Potassium 3.8 mEq/L (3.5-5.1); Troponin High Sensitivity 54.8 pg/mL (<58.9)
[2023-10-03 06:14] LABS: Protime INR 1.19
[2023-10-03 07:38] LABS: Blood Morphology Comment NOT SEEN (NOT SEEN); Platelet Estimate ADEQ; White Blood Cell Scan OK (OK)
--- NOTE | 2023-10-03 08:47 | RAD REPORT ---
EXAM DESCRIPTION: CT - Chest Abd Pelvis Wo Con - 10/03/2023 7:25 am CLINICAL HISTORY: DYSPNEA COMPARISON: CT CHEST ABD PELVIS WO CONT dated 02/27/2011; Chest Single View dated 10/03/2023; Abdomen Pelvis W Contrast dated 08/20/2022 TECHNIQUE: Thin axial CT images of the chest, abdomen, and pelvis, performed without IV contrast. Mu ltiplanar reformats were generated and reviewed. All CT scans are performed using dose optimization technique as appropriate and may include automated exposure control or mA/KV adjustment according to patient size. FINDINGS: Bilateral small to moderate pleural effusion. Dependent segmental consolidations in both l ungs, could represent atelectasis. Patchy central ground-glass opacities throughout the remainder of the lungs, with mild interlobular septal.No intrathoracic adenopathy. Mild cardiomegaly and mild christie cardial effusion. The liver, spleen, pancreas, adrenal glands and right kidney are within normal limits. Ill-defined so lid mass at the upper pole of the left kidney again appreciated, not well characterized on noncontras t CT. No bowel obstruction, free air, free fluid or abscess. Mild prostatomegaly. No pathologic lymphadeno essie in the abdomen or pelvis. No worrisome osseous finding. IMPRESSION: Up to moderate bilateral pleural effusions with underlying dependent airspace opacificat ion and other central predominant interstitial changes with ground-glass opacities. Findings suggest pulmonary edema, possibly of cardiogenic origin. Possibility of superimposed pneumonia cannot be enti rely excluded. 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 Cholelithiasis and other incidental findings as above.
[2023-10-03] MEDS ORDERED: FUROSEMIDE 40 MG/4 ML VIAL ONE ×2 (08:57→16:41)
--- NOTE | 2023-10-03 09:12 | ER ---
Nurse's Notes [facility] Name: Rojas Gutierres Age: 83 yrs Sex: Male : 1940 Arrival Date: 10/03/2023 Time: 04:39 Bed 4 Private MD: Diagnosis: Hypoxic respiratory failure;Pulmonary edema Presentation: 10/03 04:54 Chief complaint: Patient states: cold like symptoms that started yesterday but pt as6 reports increasing difficulty breathing. Coronavirus screen: At this time, the client does not indicate any symptoms associated with coronavirus-19. Ebola Screen: No symptoms or risks identified at this time. Initial Sepsis Screen: Does the patient meet any 2 criteria? No. Patient's initial sepsis screen is negative. Does the patient have a suspected source of infection? No. Patient's initial sepsis screen is negative. Risk Assessment: Do you want to hurt yourself or someone else? Patient reports no desire to harm self or others. Onset of symptoms was October 03, 2023. 04:54 Acuity: IOANA 2 as6 04:54 Method Of Arrival: Wheelchair as6 Triage Assessment: 11:39 Respiratory: Onset: The symptoms/episode began/occurred suddenly. ld1 11:39 Respiratory: the patient has moderate shortness of breath. ld1 Historical: - Allergies: 04:52 No Known Allergies; as6 - PMHx: 04:52 Arthritis; Diabetes - NIDDM; Gout; Hyperlipidemia; Hypertension; as6 - PSHx: 04:52 Stented artery; as6 - Immunization history:: Adult Immunizations up to date. - Social history:: Smoking status: Patient denies any tobacco usage or history of. - Family history:: not pertinent. Screenin:37 [facility] ED Fall Risk Assessment (Adult) History of falling in the last 3 months, ld1 including since admission No falls in past 3 months (0 pts). Abuse screen: Denies threats or abuse. Denies injuries from another. Nutritional screening: No deficits noted. Tuberculosis screening: No symptoms or risk factors identified. Assessment: 05:00 General: Appears in no apparent distress. uncomfortable, Behavior is calm, cooperative, jb4 appropriate for age. Pain: Denies pain. Neuro: Level of Consciousness is awake, alert, obeys commands, Oriented to person, place, time, situation. Cardiovascular: Patient's skin is warm and dry. Respiratory: Airway is patent Respiratory effort is even, labored, Respiratory pattern is symmetrical, tachypnea. GI: No signs and/or symptoms were reported involving the gastrointestinal system. : No signs and/or symptoms were reported regarding the genitourinary system. EENT: No signs and/or symptoms were reported regarding the EENT system. Derm: Skin is intact, Skin is pink, warm \T\ dry. Musculoskeletal: Circulation, motion, and sensation intact. Range of motion: intact in all extremities. 07:41 General: Appears in no apparent distress. comfortable, Behavior is calm, cooperative, ld1 appropriate for age. Pain: Denies pain. Neuro: Level of Consciousness is awake, alert, obeys commands, Oriented to person, place, time, situation. Cardiovascular: Capillary refill < 3 seconds Patient's skin is warm and dry. Rhythm is sinus rhythm. Respiratory: Reports shortness of breath Airway is patent Respiratory effort is even, labored, Respiratory pattern is symmetrical, Breath sounds are clear bilaterally. 08:36 Reassessment: Patient and/or family updated on plan of care and expected duration. Pain ld1 level reassessed. Notified ERP and RT of pt SpO2 80% on High flow NC. Pt placed back on non rebreather. Patient denies pain at this time. 08:56 Reassessment: Pt placed on BIPAP. ld1 Vital Signs: 04:48 BP 146 / 92; Pulse 97; Resp 22 S; Temp 99.1(TE); Pulse Ox 80% on R/A; Weight 77.11 kg as6 (R); Height 5 ft. 8 in. (R); Pain 0/10; 04:51 Pulse Ox 94% on 4 lpm NC; as6 05:58 BP 147 / 52; Pulse 93; Resp 16; Pulse Ox 90% on Nebulizer Mask; jj7 07:40 Pulse Ox 89% on 6 lpm NC; ld1 07:41 BP 134 / 55; Pulse 84; Resp 22; Pulse Ox 93% on 15 lpm Non-rebreather mask; ld1 08:35 Pulse Ox 80% on 15 lpm 80% on high flow NC at 15LPM.; ld1 08:36 BP 142 / 68; Pulse 90; Resp 24; Pulse Ox 91% on 15 lpm Non-rebreather mask; ld1 09:09 Pulse 98; Resp 26; Pulse Ox 97% on 100 lpm BiPAP; ld1 09:09 BP 148 / 73; ld1 04:48 Body Mass Index 25.85 (77.11 kg, 172.72 cm) as6 04:48 Pain Scale: Adult as6 07:41 Notified RT of SpO2 decreasing. Instructed to place patient on non rebreather. ld1 ED Course: 04:40 Patient arrived in ED. jj6 04:48 Arm band placed on. as6 04:51 Kal Hooker MD is Attending Physician. sp4 04:56 Triage completed. as6 05:00 Missed attempt(s): 18 gauge in right forearm. Bleeding controlled, band aid applied, jb4 catheter tip intact. 05:00 Initial lab(s) drawn, by me, sent to lab. First set of blood cultures drawn by me, jb4 COVID swab sent to lab. Flu and/or RSV swab sent to lab. 05:20 Missed attempt(s): 20 gauge in right antecubital area. Bleeding controlled, band aid jb4 applied, catheter tip intact. 05:20 Second set of blood cultures drawn by me. jb4 05:40 Chest Single View XRAY In Process Unspecified. EDMS 05:51 Inserted saline lock: 20 gauge in left forearm, using aseptic technique. as6 07:00 Attending Physician role handed off by Kal Hooker MD rt 07:00 Mhoan Benoit MD is Attending Physician. rt 07:18 Blood Culture Adult (2) Sent. ld1 07:18 Urinalysis w/ reflexes Sent. ld1 07:26 CT Chest Abdomen Pelvis W/O Contrast In Process Unspecified. EDMS 07:40 Wendy Zeng, FABIANO is Primary Nurse. ld1 09:10 Immanuel Moon MD is Hospitalizing Provider. rt 11:38 Patient has correct armband on for positive identification. Placed in gown. Bed in low ld1 position. Call light in reach. Side rails up X2. gambling monitor on. Pulse ox on. NIBP on. Door closed. Noise minimized. Warm blanket given. 11:38 No provider procedures requiring assistance completed. Patient admitted, IV remains in ld1 place. 11:39 Provided Education on: .. ld1 Administered Medications: 05:34 Drug: Albuterol Inhalation 2.5 mg Inhalation once Route: Inhalation; jj7 14:30 Follow up: Response: No adverse reaction me1 05:35 Drug: Acetaminophen PO 1000 mg PO once Route: PO; jj7 14:30 Follow up: Response: No adverse reaction me1 05:35 Drug: Ipratropium Inhalation Aerosol 0.5 mg Inhalation once Route: Inhalation; jj7 05:57 Drug: NS 0.9% IV 500 ml IV at bolus once Route: IV; Rate: bolus; Site: left wrist; jj7 14:29 Follow up: IV Status: Completed infusion me1 05:57 Drug: vancoMYCIN IVPB 1 grams IVPB once over 2 hrs Route: IVPB; Infused Over: 2 hrs; jj7 Site: left wrist; 14:29 Follow up: Response: No adverse reaction; IV Status: Completed infusion me1 07:40 Drug: Piperacillin-Tazobactam IVPB 3.375 grams IVPB once over 60 mins; (mix in NS 100 ld1 mL) Route: IVPB; Infused Over: 60 mins; Site: left antecubital; 14:29 Follow up: IV Status: Completed infusion me1 14:30 Follow up: Response: No adverse reaction me1 09:09 Drug: Furosemide IVP 40 mg IVP once; give over 2 minutes Route: IVP; Site: left ld1 antecubital; 14:28 Follow up: Response: No adverse reaction me1 09:56 CANCELLED (Duplicate Order): ondansetron 4 mg IVP once; over 2 minutes rt 10:00 Drug: Ondansetron IVP 8 mg IVP once; over 2 minutes Route: IVP; Site: left wrist; [facility] 14:29 Follow up: Response: No adverse reaction me1 Medication: 11:38 VIS not applicable for this client. ld1 Outcome: 09:12 Decision to Hospitalize by Provider. rt 11:38 Admitted to ER Hold. Please see [facility] for further documentation. ld1 11:38 Condition: stable 11:38 Instructed on the need for admit, 10/04 01:06 Patient left the ED. as6 Signatures: Dispatcher [facility] EDBala Doan RN RN jb4 Vern Caruso RN RN ll1 Wendy Zeng RN RN ld1 Jodie Godinez jj6 Kevin Pérez, RN RN as6 Zara Ellis RN RN jj7 Mohan Benoit MD MD rt Kal Hooker MD MD sp4 Pavithra Abreu RN RN me1
--- NOTE | 2023-10-03 09:13 | EDPHYS ---
Physician Documentation [facility] Name: Rojas Gutierres Age: 83 yrs Sex: Male : 1940 Arrival Date: 10/03/2023 Time: 04:39 Bed 4 Private MD: ED Physician Mohan Benoit HPI: 10/03 04:51 This 83 yrs old Male presents to ER via Unassigned with complaints of sp4 Breathing Difficulty. 07:03 83-year-old male present acute onset shortness of breath starting 2 days ago. This is sp4 associated with generalized weakness. Patient denied fever or cough. Reported feeling unwell. Historical: - Allergies: 04:52 No Known Allergies; as6 - PMHx: 04:52 Arthritis; Diabetes - NIDDM; Gout; Hyperlipidemia; Hypertension; as6 - PSHx: 04:52 Stented artery; as6 - Immunization history:: Adult Immunizations up to date. - Social history:: Smoking status: Patient denies any tobacco usage or history of. - Family history:: not pertinent. ROS: 07:03 Constitutional: Negative for fever, chills, and weight loss, positive dyspnea positive sp4 generalized weakness 07:03 All other systems are negative, Exam: 07:03 Constitutional: This is a well developed, well nourished patient who is awake, alert, sp4 patient is ill-appearing male, generalized pallor, hypoxemic on arrival, no respiratory retractions, mild respiratory distress Head/Face: Normocephalic, atraumatic. Eyes: Pupils equal round and reactive to light, extra-ocular motions intact. Lids and lashes normal. Conjunctiva and sclera are not injected. Cornea within normal limits. Periorbital areas with no swelling, redness, or edema. ENT: Nares patent. No nasal discharge, no septal abnormalities noted. Tympanic membranes are normal and external auditory canals are clear. Oropharynx with no redness, swelling, or masses, exudates, or evidence of obstruction, uvula midline. Mucous membranes moist. Neck: Trachea midline, no thyromegaly or masses palpated, and no cervical lymphadenopathy. Supple, full range of motion without nuchal rigidity, or vertebral point tenderness. Chest/axilla: Normal chest wall appearance and motion. Nontender with no deformity. No lesions are appreciated. Cardiovascular: Regular rate and rhythm with a normal S1 and S2. No gallops, murmurs, or rubs. Normal PMI, no JVD. No pulse deficits. Respiratory: Lungs have equal breath sounds bilaterally, positive bilateral lower retractions positive mild respiratory distress positive hypoxemia on arrival positive pallor, positive decreased bilateral breath sounds at the bases Abdomen/GI: Soft, non-tender, with normal bowel sounds. No distension or tympany. No guarding or rebound. No evidence of tenderness throughout. Back: No spinal tenderness. No costovertebral tenderness. Skin: Warm, dry with normal turgor. Normal color with no rashes, no lesions, and no evidence of cellulitis. MS/ Extremity: Pulses equal, no cyanosis. Neurovascular intact. Full, normal range of motion. Neuro: Awake and alert, GCS 15, oriented to person, place, time, and situation. Cranial nerves II-XII grossly intact. Motor strength 5/5 in all extremities. Sensory grossly intact. Psych: Awake, alert, with orientation to person, place and time. Behavior, mood, and affect are within normal limits 07:03 ECG was reviewed by the Attending Physician. 06:59 Vital Signs: 04:48 BP 146 / 92; Pulse 97; Resp 22 S; Temp 99.1(TE); Pulse Ox 80% on R/A; Weight 77.11 kg as6 (R); Height 5 ft. 8 in. (R); Pain 0/10; 04:51 Pulse Ox 94% on 4 lpm NC; as6 05:58 BP 147 / 52; Pulse 93; Resp 16; Pulse Ox 90% on Nebulizer Mask; jj7 07:40 Pulse Ox 89% on 6 lpm NC; ld1 07:41 BP 134 / 55; Pulse 84; Resp 22; Pulse Ox 93% on 15 lpm Non-rebreather mask; ld1 08:35 Pulse Ox 80% on 15 lpm 80% on high flow NC at 15LPM.; ld1 08:36 BP 142 / 68; Pulse 90; Resp 24; Pulse Ox 91% on 15 lpm Non-rebreather mask; ld1 09:09 Pulse 98; Resp 26; Pulse Ox 97% on 100 lpm BiPAP; ld1 09:09 BP 148 / 73; ld1 04:48 Body Mass Index 25.85 (77.11 kg, 172.72 cm) as6 04:48 Pain Scale: Adult as6 07:41 Notified RT of SpO2 decreasing. Instructed to place patient on non rebreather. ld1 MDM: 05:01 Patient medically screened. sp4 07:03 ED course: Chest - CLINICAL HISTORY: CONGESTION COMPARISON: None. TECHNIQUE: XR CHEST 1 sp4 VIEW 10/03/2023 4:53 AM GEOMETRY PROFESSOR FINDINGS: The heart is enlarged. There are diffuse interstitial changes with possible medial right basilar consolidation. There is no pleural effusion. There is no pneumothorax. There are no acute osseous findings. IMPRESSION: Possible right basilar pneumonia. . 07:10 Transition of care: After a detail discussion of the patient's case, care is sp4 transferred to Mohan Benoit MD. 09:14 Differential diagnosis: Pneumonia, pulmonary edema, pneumothorax. Data reviewed: vital rt signs, nurses notes, lab test result(s), EKG, radiologic studies. Consideration of Admission/Observation Patient was admitted/placed on observation. Management of patient was discussed with the following: Hospitalist: Agrees to admit. I considered the following discharge prescriptions or medication management in the emergency department Medications were administered in the Emergency Department. See MAR. Independent interpretation of the following test(s) in the Emergency Department X-Ray: My interpretation is Pulmonary edema seen on interpretation of x-ray images. Care significantly affected by the following chronic conditions: Diabetes. Counseling: I had a detailed discussion with the patient and/or guardian regarding the historical points, exam findings, and any diagnostic results supporting the discharge/admit diagnosis, lab results, radiology results, the need for further work-up and treatment in the hospital. Response to treatment: the patient's symptoms have mildly improved after treatment. 10/03 04:53 Order name: Blood Culture Adult (2) sp4 10/03 04:53 Order name: CBC with Diff; Complete Time: 08:52 sp4 10/03 04:53 Order name: CMP; Complete Time: 06:32 sp4 10/03 04:53 Order name: Lactate w/ 2H reflex if indic.; Complete Time: 06:32 sp4 10/03 04:53 Order name: Protime (+inr); Complete Time: 06:32 sp4 10/03 04:53 Order name: Ptt, Activated; Complete Time: 06:32 sp4 10/03 04:53 Order name: Urinalysis w/ reflexes sp4 10/03 04:53 Order name: ABG; Complete Time: 06:32 sp4 10/03 05:00 Order name: COVID-19 SARS RT PCR; Complete Time: 06:32 sp4 10/03 05:00 Order name: Influenza Screen (a \T\ B); Complete Time: 06:32 sp4 10/03 05:44 Order name: Troponin High Sensitivity; Complete Time: 06:32 EDMS 10/03 05:44 Order name: NT PRO-BNP; Complete Time: 06:32 EDMS 10/03 05:52 Order name: CBC Smear Scan; Complete Time: 08:52 EDMS 10/03 10:37 Order name: Basic Metabolic Panel EDMS 10/03 10:37 Order name: Basic Metabolic Panel EDMS 10/03 10:37 Order name: Basic Metabolic Panel EDMS 10/03 10:37 Order name: Basic Metabolic Panel EDMS 10/03 10:37 Order name: Basic Metabolic Panel EDMS 10/03 10:37 Order name: Basic Metabolic Panel EDMS 10/03 10:37 Order name: Basic Metabolic Panel EDMS 10/03 10:37 Order name: Basic Metabolic Panel EDMS 10/03 10:37 Order name: CBC with Automated Diff EDMS 10/03 10:37 Order name: CBC with Automated Diff EDMS 10/03 10:37 Order name: CBC with Automated Diff EDMS 10/03 10:37 Order name: CBC with Automated Diff EDMS 10/03 10:37 Order name: CBC with Automated Diff EDMS 10/03 10:37 Order name: CBC with Automated Diff EDMS 10/03 10:37 Order name: CBC with Automated Diff EDMS 10/03 10:37 Order name: CBC with Automated Diff EDMS 10/03 10:37 Order name: Magnesium EDMS 10/03 10:37 Order name: Magnesium EDMS 10/03 10:37 Order name: Magnesium EDMS 10/03 10:37 Order name: Magnesium EDMS 10/03 10:37 Order name: Magnesium EDMS 10/03 10:37 Order name: Magnesium EDMS 10/03 10:37 Order name: Magnesium EDMS 10/03 10:37 Order name: Magnesium EDMS 10/03 10:37 Order name: Phosphorus EDMS 10/03 10:37 Order name: Phosphorus EDMS 10/03 10:37 Order name: Phosphorus EDMS 10/03 10:37 Order name: Phosphorus EDMS 10/03 10:37 Order name: Phosphorus EDMS 10/03 10:37 Order name: Phosphorus EDMS 10/03 10:37 Order name: Phosphorus EDMS 10/03 10:37 Order name: Phosphorus EDMS 10/03 10:37 Order name: Troponin High Sensitivity EDMS 10/03 10:37 Order name: Troponin High Sensitivity; Complete Time: 16:07 EDMS 10/03 10:37 Order name: Troponin High Sensitivity EDMS 10/03 11:38 Order name: Glucose, Ancillary Testing; Complete Time: 16:07 EDMS 10/03 16:51 Order name: Glucose, Ancillary Testing; Complete Time: 17:41 EDMS 10/03 18:54 Order name: Troponin High Sensitivity [facility] 10/03 20:12 Order name: Glucose, Ancillary Testing [facility] 10/03 04:53 Order name: Chest Single View XRAY; Complete Time: 16:07 4 10/03 06:32 Order name: CT Chest Abdomen Pelvis W/O Contrast; Complete Time: 08:52 sp4 10/03 08:52 Order name: BIPAP rt 10/03 04:53 Order name: EKG; Complete Time: 04:54 sp4 10/03 10:37 Order name: Physical Therapy Consult [facility] 10/03 04:53 Order name: Accucheck; Complete Time: 07:15 sp4 10/03 04:53 Order name: Cardiac monitoring; Complete Time: 07:15 4 10/03 04:53 Order name: EKG - Nurse/Tech; Complete Time: 07:18 4 10/03 04:53 Order name: IV Saline Lock - Large Bore; Complete Time: 05:51 sp4 10/03 04:53 Order name: Labs collected and sent; Complete Time: 07:15 sp4 10/03 04:53 Order name: O2 Per Protocol; Complete Time: 07:15 sp4 10/03 04:53 Order name: O2 Sat Monitoring; Complete Time: 07:15 sp4 10/03 04:53 Order name: Vital Signs; Complete Time: 07:15 sp4 10/03 08:55 Order name: Kate; Complete Time: 09:19 rt EC:03 Rate is 84 beats/min. Rhythm is regular. QRS [place] is Normal. ME interval is prolonged. sp4 QRS interval is normal. QT interval is prolonged. No Q waves. T waves are Normal. No ST changes noted. Clinical impression: No evidence of ischemia. Interpreted by me. Reviewed by me. Administered Medications: 05:34 Drug: Albuterol Inhalation 2.5 mg Inhalation once Route: Inhalation; jj7 14:30 Follow up: Response: No adverse reaction me1 05:35 Drug: Acetaminophen PO 1000 mg PO once Route: PO; jj7 14:30 Follow up: Response: No adverse reaction me1 05:35 Drug: Ipratropium Inhalation Aerosol 0.5 mg Inhalation once Route: Inhalation; jj7 05:57 Drug: NS 0.9% IV 500 ml IV at bolus once Route: IV; Rate: bolus; Site: left wrist; jj7 14:29 Follow up: IV Status: Completed infusion me1 05:57 Drug: vancoMYCIN IVPB 1 grams IVPB once over 2 hrs Route: IVPB; Infused Over: 2 hrs; jj7 Site: left wrist; 14:29 Follow up: Response: No adverse reaction; IV Status: Completed infusion me1 07:40 Drug: Piperacillin-Tazobactam IVPB 3.375 grams IVPB once over 60 mins; (mix in NS 100 ld1 mL) Route: IVPB; Infused Over: 60 mins; Site: left antecubital; 14:29 Follow up: IV Status: Completed infusion me1 14:30 Follow up: Response: No adverse reaction me1 09:09 Drug: Furosemide IVP 40 mg IVP once; give over 2 minutes Route: IVP; Site: left ld1 antecubital; 14:28 Follow up: Response: No adverse reaction me1 09:56 CANCELLED (Duplicate Order): ondansetron 4 mg IVP once; over 2 minutes rt 10:00 Drug: Ondansetron IVP 8 mg IVP once; over 2 minutes Route: IVP; Site: left wrist; [facility] 14:29 Follow up: Response: No adverse reaction me1 Disposition: 09:14 Critical Care:. rt Disposition Summary: 10/03/23 09:12 Hospitalization Ordered Notes: Hospitalization Status: Inpatient Admission rt Provider: Immanuel Moon rt Condition: Fair rt Problem: new rt Symptoms: have improved rt Bed/Room Type: Standard rt Location: [facility] ER HOLD(10/03/23 14:52) em1 Room Assignment: ERHOLD-(10/03/23 14:52) em1 Diagnosis - Hypoxic respiratory failure rt - Pulmonary edema rt Forms: - Medication Reconciliation Form rt - SBAR form rt - Leadership Thank You Letter rt Critical care time excluding procedures: 09:14 Critical care time: Bedside Care: 305 minutes. Total time: 305 minutes rt Signatures: Dispatcher [employer] EDMS Kristine Miller, PRINCIPAL NETWORK ARCHITECT-C PRINCIPAL NETWORK ARCHITECT-Csnw Danuta Jurado sp RodrigueYuriy em1 Liam Grace, RN RN ja1 Vern Caruso, RN RN ll1 Wendy Zegn, RN RN ld1 Kevin Pérez, FABIANO RN as6 Zara Ellis RN RN jj7 Mohan Benoit MD MD rt Kal Hooker MD MD sp4 Pavithra Abreu RN me1 Corrections: (The following items were deleted from the chart) 05:48 05:01 Troponin High Sensitivity+C.LAB.BRZ ordered. EDMS EDMS 05:48 05:01 PROBNP+C.LAB.BRZ ordered. EDMS EDMS 09:56 09:54 Ondansetron IVP 4 mg IVP once; over 2 minutes ordered. rt rt 11:47 09:12 Telemetry/MedSurg (Inpatient) rt sp 11:47 09:12 rt sp 14:06 11:47 [facility] ER HOLD sp em1 14:06 11:47 ERHOLD- sp em1 14:44 14:06 408 em1 ja1 14:52 14:06 Telemetry/MedSurg (Inpatient) em1 em1 14:52 14:44 ja1 em1
--- NOTE | 2023-10-03 09:34 | P.HP ---
Certification for Inpatient Patient admitted to: Observation With expected LOS: >2 Midnights Practitioner: I am a practitioner with admitting privileges, knowledge of patient current condition, hospital course, and medical plan of care. Services: Services provided to patient in accordance with Admission requirements found in Title 42 Section 412.3 of the Code of Federal Regulations Patient History Date of Service: 10/03/23 Reason for admission: weakness, SOB History of Present Illness: Rojas Gutierres is an 83-year-old male with past medical history of Arthritis; Diabetes - NIDDM; Gout; Hyperlipidemia; Hypertension who presents to the ED complaining of difficulty breathing, weakness, and feeling unwell for 2 days. His is at the bedside and is a good historian and reports he usually sleeps a lot throughout the day, his sleeping did not proved to be any different than normal. He has had dry heaves and felt off balance. He does ambulate independently but only from room to room of the house. On evaluation he is on the BiPAP, able to converse through the BiPAP clearly, alert and oriented x 3, and cooperative. He is uncomfortable with the Kate catheter while given being given Lasix in the ED, and uncomfortable wearing the BiPAP. When he is put on high flow his oxygen saturation drops to 78-80%. Initial vital Signs: BP 146 / 92; Pulse 97; Resp 22 ; Temp 99.1(TE); Pulse Ox 80% on R/A Laboratory evaluation WBC 16.4, H&H 10/30, lactic acid 1.7, BUN/creatinine 35/2.2, GFR 35, BNP 9626, troponin 54.8 Chest x-ray reports "The heart is enlarged. There are diffuse interstitial changes with possible medial right basilar consolidation. There is no pleural effusion. There is no pneumothorax. There are no acute osseous findings. Possible right basilar pneumonia" CT chest/abdomen/pelvis reports " Up to moderate bilateral pleural effusions with underlying dependent airspace opacification and other central predominant interstitial changes with ground-glass opacities. Findings suggest pulmonary edema, possibly of cardiogenic origin. Possibility of superimposed pneumonia cannot be entirely excluded. Known upper left renal pole solid mass, with il l-defined appearance on noncontrast CT, concerning for malignancy." Rojas will be admitted to hospitalist service for further evaluation and treatment of Right sided pneumonia, Zosyn and bank given in the ED. Allergies iodine Allergy (Verified 09/16/22 10:16) Rash shellfish derived Allergy (Verified 09/16/22 10:16) Rash Home Medications: Amlodipine Besylate 1 tab PO DAILY 07/15/22 Ezetimibe 1 tab PO DAILY 07/15/22 Glimepiride 1 tab PO DAILY 07/15/22 Clopidogrel Bisulfate [Plavix*] 75 mg PO DAILY 30 Days #30 tab 08/06/22 Ferrous Sulfate [Iron] 325 mg PO DAILY 30 Days #30 tab 08/06/22 carvediloL [Coreg] 6.25 mg PO BID 30 Days #60 tab 08/06/22 Febuxostat 40 mg PO PRN PRN 09/16/22 Hydralazine [Apresoline] 20 mg PO BID 09/16/22 - Past Medical/Surgical History -: Hypertension -: Gout -: Diabetes mellitus type 2 -: HLD -: OA - Social History Alcohol use: No CD- Drugs: No Caffeine use: Yes Review of Systems General: Chills ENT: Unremarkable Respiratory: Cough (dry heaves), Shortness of Breath Cardiovascular: Light Headedness Neurological: Weakness Physical Examination - Physical Exam General: Alert, Oriented x3, Moderate distress HEENT: Atraumatic, Normocephalic, PERRLA Neck: Supple, 2+ carotid pulse no bruit, JVD not distended Respiratory: Normal air movement, Expiratory wheezes Cardiovascular: No edema, Normal pulses, Regular rate/rhythm, Normal S1 S2 Capillary refill: <2 Seconds Gastrointestinal: Normal bowel sounds, Soft and benign Musculoskeletal: No clubbing Integumentary: No rashes, No breakdown, No significant lesion Neurological: Normal speech, Normal strength at 5/5 x4 extr Urinary: Kate catheter - Studies Laboratory Data (last 24 hrs) 10/03/23 10/03/23 10/03/23 05:00 05:00 05:00 WBC 16.40 H Hgb 10.4 L Hct 30.8 L Plt Count 185 PT 13.0 H INR 1.19 APTT 22.7 L Sodium 139 Potassium 3.8 BUN 35 H Creatinine 2.21 H Glucose 212 H Total Bilirubin 1.0 AST 27 ALT 26 Alkaline Phosphatase 107 Microbiology Data (last 24 hrs): 10/03/23 05:00 Nasopharnyx Influenza Type A Antigen Screen - Final 10/03/23 05:00 Nasopharnyx Influenza Type B Antigen Screen - Final Assessment and Plan - Plan Assessment and plan Acute hypoxic respiratory failure secondary to right-sided pneumonia versus congestive heart failure exacerbation congestive heart failure exacerbation Leukocytosis WBC 16.4 Vanco/Zosyn, Lasix, albuterol given in the ED Start Levaquin Lasix IV BID Albuterol and ipratropium BiPAP N.p.o. while using BiPAP Troponin 54.8, Serial pending BNP 9626 EKG showing sinus rhythm, with 1st degree heart block QT prolonged Hold medications that prolong QT Qt/QTc 422/498 RANDY vs SKD BUN/Creatinine 35/2.2 GFR 35 Health Services Coord[address] is Dr. Barrett, consult sent Diabetes mellitusNIDDM Hold oral medication Accu-Chek with sliding scale insulin Serum glucose 212 HTN/HLD/ Gout Continue home medications DVT PPxheparin Full code LOS 2 to 3 days Discharge Plan: Home Plan to discharge in: 48 Hours - Advance Directives Does patient have a Living Will: No Does patient have a Durable POA for Healthcare: No Time Spent Managing Pts Care (In Minutes): 55
[2023-10-03] MEDS ORDERED: ONDANSETRON 4 MG/2 ML VIAL ONE (09:57)
[2023-10-03] MEDS ORDERED: MORPHINE 2 MG/ML SYR IV PRN (10:28)
[2023-10-03] MEDS ORDERED: IPRATROPIUM BROM 0.5MG/2.5ML NEB PRN (10:28)
[2023-10-03] MEDS ORDERED: LORazepam 2 MG/ML VIAL IV ONE (11:00)
[2023-10-03 11:27] VITALS: BMI 26.1
[2023-10-03] MEDS ORDERED: LORazepam 2 MG/ML VIAL ONE (11:30)
[2023-10-03] MEDS: INSULIN REGULAR (HUMAN) 100 UNIT/ML SQ SCH ×3 (11:30→20:04)
[2023-10-03] MEDS ORDERED: INSULIN REGULAR (HUMAN) 100 UNIT/ML ONE (11:31)
[2023-10-03] MEDS ORDERED: Levofloxacin 750mg IV 750 MG/150 ML BAG IV SCH (12:00)
--- NOTE | 2023-10-03 13:47 | RAD REPORT ---
EXAM DESCRIPTION: RAD - Chest Single View - 10/03/2023 5:38 am CLINICAL HISTORY: CONGESTION COMPARISON: None. TECHNIQUE: XR CHEST 1 VIEW 10/03/2023 4:53 AM REGIONAL PLANNER FINDINGS: The heart is enlarged. There are diffuse interstitial changes with possible medial right b asilar consolidation. There is no pleural effusion. There is no pneumothorax. There are no acute osse ous findings. IMPRESSION: Possible right basilar pneumonia. Electronically signed by: Jose Raul Caruso MD 10/03/2023 06:44 AM REGIONAL PLANNER Due to temporary technical issues with the PACS/Fluency reporting system, reports are being signed by the in house radiologists without review as a courtesy to insure prompt reporting. The interpreting radiologist is fully responsible for the content of the report.
[2023-10-03] MEDS ORDERED: FUROSEMIDE 40 MG/4 ML VIAL IV SCH ×3 (14:00→20:00)
[2023-10-03] MEDS ORDERED: HEPARIN 5000 UNIT/ML 1 ML VIAL ONE (16:41)
[2023-10-03] MEDS ORDERED: HEPARIN 5000 UNIT/ML 1 ML VIAL SQ SCH (17:00)
[2023-10-03 19:00] VITALS: O2SAT 94
[2023-10-03] MEDS ORDERED: HEPARIN/D5W 25,000 UNIT/500 ML BAG IV SCH (19:00)
[2023-10-03] MEDS ORDERED: ASPIRIN 81 MG CHEWABLE TABLET PO ONE (19:51)
[2023-10-03] MEDS ORDERED: ASPIRIN 81 MG CHEWABLE TABLET ONE (19:57)
[2023-10-03 21:24] VITALS: TEMP 100.6
--- NOTE | 2023-10-03 21:47 | P.PN ---
Date of Service: 10/03/23 Patient was admitted with acute hypoxic respiratory failure Currently on high flow oxygen Found to have elevated troponin suggestive of acute NSTEMI - Continue heparin drip Spoke with [facility]. Accepted for transfer
[2023-10-03] MEDS ORDERED: HEPARIN/D5W 25,000 UNIT/500 ML BAG IV ONE (23:43)
[2023-10-04 00:39] VITALS: BP 111/50
--- NOTE | 2023-10-06 13:30 | EKG ---
Test Date: 2023-10-03 Test Time: 18:10:12 Family Dinner Service Specialist: Roosevelt BURNHAM MEASUREMENT RESULTS: Intervals: Rate: 86 WY: 278 QRSD: 98 QT: 364 QTc: 435 [place]: P: 86 WY: 278 QRS: 67 T: 5 INTERPRETIVE STATEMENTS: Sinus rhythm with 1st degree AV block with occasional premature ventricular complexes and fusion complexes Otherwise normal ECG Compared to ECG 10/03/2023 06:59:31 Fusion complex(es) now present Ventricular premature complex(es) now present ST (T wave) deviation no longer present Possible ischemia no longer present Prolonged QT interval no longer present Electronically Signed On 10-06-23 13:23:38 PROGRAM DIRECTOR/TRAFFIC DIRECTOR by Dequan Horner
--- NOTE | 2023-10-06 13:31 | EKG ---
Test Date: 2023-10-03 Test Time: 06:59:31 Curriculum Development Specialist: SERINA MEASUREMENT RESULTS: Intervals: Rate: 84 WY: 280 QRSD: 92 QT: 422 QTc: 498 [place]: P: 87 WY: 280 QRS: 75 T: 83 INTERPRETIVE STATEMENTS: Sinus rhythm with 1st degree AV block ST & T wave abnormality, consider inferolateral ischemia Prolonged QT Abnormal ECG Compared to ECG 09/16/2022 10:32:00 ST (T wave) deviation now present Possible ischemia now present Prolonged QT interval now present Electronically Signed On 10-06-23 13:24:36 SERVICE ORDER DISPATCHER by Dequan Horner
== END 2023-10-04 00:49 | disposition short-term general hospital (02) ==
LOC: ER 04:39 → ERHOLD 10:28
PROVIDERS: ADMIT Internal Medicine Sleep Medicine; ATTEND Internal Medicine Sleep Medicine
DX: J96.01 Acute respiratory failure with hypoxia (principal); J81.1 Chronic pulmonary edema; D72.829 Elevated white blood cell count, unspecified; I10 Essential (primary) hypertension; E78.5 Hyperlipidemia, unspecified; E11.9 Type 2 diabetes mellitus without complications; R53.1 Weakness; Z11.52 Encounter for screening for COVID-19
CPT/HCPCS: 93005 ×2; 87040 ×2; 85025; 36415; 85610; 82947 ×3; 83605; 85730; 84484 ×4; 80053; 83880; 87635; 87804 ×2; 71250; 74176; 71045; 82805; 99285; 36600; 94660 ×4; J1815; J1644; J1940 ×2; J2543; J7613; J7644; J2405; J7050; J7040; G0378 ×3

== ENCOUNTER 2024-02-04 14:43 | Emergency (ER) | payer OTHER, MEDICARE ==
--- NOTE | 2024-02-04 17:28 | RAD REPORT ---
EXAM DESCRIPTION: US - Hemodialysis Graft - 02/04/2024 5:22 pm CLINICAL HISTORY: recent AV fistula;Swelling COMPARISON: No comparisons FINDINGS: Av fistula is noted at is patent. No flow abnormality seen. No hematoma or pseudoaneurysm.
--- NOTE | 2024-02-04 17:37 | ER ---
Nurse's Notes [facility] Name: Rojas Gutierres Age: 84 yrs Sex: Male : 1940 Arrival Date: 02/04/2024 Time: 14:43 Bed 17 Private MD: Diagnosis: Rash and other nonspecific skin eruption Presentation: 02/03 15:08 Chief complaint: LUE swelling x 3 hours, small area of swelling over fistula site 3 hb days ago. Coronavirus screen: At this time, the client does not indicate any symptoms associated with coronavirus-19. Ebola Screen: No symptoms or risks identified at this time. Initial Sepsis Screen: Does the patient meet any 2 criteria? No. Patient's initial sepsis screen is negative. Does the patient have a suspected source of infection? No. Patient's initial sepsis screen is negative. Risk Assessment: Do you want to hurt yourself or someone else? Patient reports no desire to harm self or others. Onset of symptoms was February 01, 2024. 15:08 Method Of Arrival: Ambulatory hb 15:08 Acuity: IOANA 3 hb Triage Assessment: 15:10 General: Appears in no apparent distress. Behavior is calm, cooperative. Pain: Pain hb currently is 2 out of 10 on a pain scale. Neuro: Level of Consciousness is awake, alert, obeys commands, Oriented to person, place, time, situation. Cardiovascular: Patient's skin is warm and dry. Respiratory: Respiratory effort is even, unlabored, Respiratory pattern is regular, symmetrical. Historical: - PMHx: 15:10 Arthritis; Diabetes - NIDDM; Gout; Hyperlipidemia; Hypertension; hb - PSHx: 15:10 Stented artery; hb - Immunization history:: Adult Immunizations up to date. - Infectious Disease History:: Denies. - Social history:: Smoking status: Patient denies any tobacco usage or history of. - Family history:: not pertinent. - Hospitalizations: : No recent hospitalization is reported. Screenin:14 [facility] ED Fall Risk Assessment (Adult) History of falling in the last 3 months, kc6 including since admission No falls in past 3 months (0 pts) Confusion or Disorientation No (0 pts) Intoxicated or Sedated No (0 pts) Impaired Gait No (0 pts) Mobility Assist Device Used No (0 pt) Altered Elimination No (0 pt) Score/Fall Risk Level 0 - 2 = Low Risk. Abuse screen: Denies threats or abuse. Denies injuries from another. Nutritional screening: No deficits noted. Tuberculosis screening: No symptoms or risk factors identified. Assessment: 15:40 General: Appears in no apparent distress. comfortable, well groomed, well developed, kc6 Behavior is calm, cooperative, appropriate for age. Pain: Denies pain. Neuro: Level of Consciousness is awake, alert, obeys commands, Oriented to person, place, time, situation, Appropriate for age. Cardiovascular: Denies chest pain, Capillary refill < 3 seconds Dialysis shunt: in the left arm, with palpable thrill, with auscultated bruit, with no erythema, with no edema, no bleeding noted. Respiratory: Airway is patent Trachea midline Respiratory effort is even, unlabored, Respiratory pattern is regular, symmetrical. GI: No signs and/or symptoms were reported involving the gastrointestinal system. : No signs and/or symptoms were reported regarding the genitourinary system. EENT: No signs and/or symptoms were reported regarding the EENT system. Derm: No signs and/or symptoms reported regarding the dermatologic system. Skin is intact, is healthy with good turgor, Skin is pink, warm \T\ dry. Musculoskeletal: No signs and/or symptoms reported regarding the musculoskeletal system. Circulation, motion, and sensation intact. Capillary refill < 3 seconds, Range of motion: intact in all extremities. 16:33 Reassessment: Patient appears in no apparent distress at this time. No changes from kc6 previously documented assessment. Patient and/or family updated on plan of care and expected duration. Pain level reassessed. Patient is alert, oriented x 3, equal unlabored respirations, skin warm/dry/pink. 17:40 Reassessment: Patient appears in no apparent distress at this time. No changes from kc6 previously documented assessment. Patient and/or family updated on plan of care and expected duration. Pain level reassessed. Patient is alert, oriented x 3, equal unlabored respirations, skin warm/dry/pink. Vital Signs: 15:08 BP 166 / 50; Pulse 56; Resp 16; Temp 98.2(O); Pulse Ox 99% on R/A; Weight 72.57 kg; hb Height 5 ft. 8 in. ; Pain 2/10; 16:33 BP 155 / 50; Pulse 52; Resp 16 S; Pulse Ox 96% on R/A; kc6 17:40 BP 166 / 55; Pulse 65; Resp 16 S; Pulse Ox 98% on R/A; kc6 15:08 Body Mass Index 24.33 (72.57 kg, 172.72 cm) hb 15:08 Pain Scale: Adult hb ED Course: 14:48 Patient arrived in ED. mg5 14:49 Tae Navarro MD is Attending Physician. rn 15:02 Mary Ann Thomas, FAIBANO is Primary Nurse. kc6 15:10 Triage completed. hb 15:10 Arm band placed on. hb 15:14 Patient has correct armband on for positive identification. Bed in low position. Call kc6 light in reach. Side rails up X 1. Adult w/ patient. Client placed on continuous cardiac and pulse oximetry monitoring. NIBP monitoring applied. 17:24 Hemodialysis Graft In Process Unspecified. EDMS 17:45 No provider procedures requiring assistance completed. Patient did not have IV access kc6 during this emergency room visit. Administered Medications: No medications were administered Medication: 17:46 VIS not applicable for this client. kc6 Outcome: 17:37 Discharge ordered by . rn 17:46 Discharged to home ambulatory, with significant other, kc6 17:46 Condition: good 17:46 Discharge instructions given to patient, significant other, Instructed on discharge instructions, follow up and referral plans. Demonstrated understanding of instructions, follow-up care, 17:46 Patient left the ED. kc6 Signatures: Dispatcher [employer] EDMS Tae Navarro MD MD rn Baxter, Heather RN Mary Ann Lucas RN RN yon [place] [id number]
--- NOTE | 2024-02-04 17:38 | EDPHYS ---
Physician Documentation [facility] Name: Rojas Gutierres Age: 84 yrs Sex: Male : 1940 Arrival Date: 02/04/2024 Time: 14:43 Bed 17 Private MD: ED Physician Tae Navarro HPI: 02/03 15:59 This 84 yrs old Male presents to ER via Ambulatory with complaints of Fistula. rn 15:59 The patient or guardian complains of swelling. The complaints affect the palmar aspect rn of left forearm. 16:02 Onset: The symptoms/episode began/occurred 4 day(s) ago. Modifying factors: The rn symptoms are alleviated by nothing. the symptoms are aggravated by nothing. Severity of symptoms: At their worst the symptoms were mild, in the emergency department the symptoms are unchanged. The patient has not experienced similar symptoms in the past. Patient reports just had left upper extremity fistula placed for dialysis 1 month ago. Has had multiple ultrasounds and everything going well with the fistula. 4 days ago noticed blister on top of the left forearm just distal to the fistula, seen by physician and placed on antibiotics, blister bled for a little while and now shrinking and appears better. Now having little bit more discoloration overlying fistula and states this is how the first blister started. No fever. No trauma.. Historical: - PMHx: 15:10 Arthritis; Diabetes - NIDDM; Gout; Hyperlipidemia; Hypertension; hb - PSHx: 15:10 Stented artery; hb - Immunization history:: Adult Immunizations up to date. - Infectious Disease History:: Denies. - Social history:: Smoking status: Patient denies any tobacco usage or history of. - Family history:: not pertinent. - Hospitalizations: : No recent hospitalization is reported. ROS: 16:02 Constitutional: Negative for fever, chills, and weight loss, MS/Extremity: Negative for rn injury and deformity Skin: Positive for blister on skin overlying fistula Exam: 16:02 Constitutional: This is a well developed, well nourished patient who is awake, alert, rn and in no acute distress. MS/ Extremity: Pulses equal, no cyanosis. Neurovascular intact. Thrill palpated over fistula. Full, normal range of motion. Equal circumference. No erythema or warmth. No fluctuance. Vital Signs: 15:08 BP 166 / 50; Pulse 56; Resp 16; Temp 98.2(O); Pulse Ox 99% on R/A; Weight 72.57 kg; hb Height 5 ft. 8 in. ; Pain 2/10; 16:33 BP 155 / 50; Pulse 52; Resp 16 S; Pulse Ox 96% on R/A; kc6 17:40 BP 166 / 55; Pulse 65; Resp 16 S; Pulse Ox 98% on R/A; kc6 15:08 Body Mass Index 24.33 (72.57 kg, 172.72 cm) hb 15:08 Pain Scale: Adult hb MDM: 14:49 Patient medically screened. rn 17:35 Differential diagnosis: Blister, cellulitis, pseudoaneurysm, problem with AV fistula, rn nonspecific dermatologic finding. Data reviewed: vital signs, nurses notes, radiologic studies, doppler, and as a result, I will discharge patient. Counseling: I had a detailed discussion with the patient and/or guardian regarding the historical points, exam findings, and any diagnostic results supporting the discharge/admit diagnosis, radiology results, the need for outpatient follow up, to return to the emergency department if symptoms worsen or persist or if there are any questions or concerns that arise at home. Special discussion: I discussed with the patient/guardian in detail that at this point there is no indication for admission to the hospital. It is understood, however, that if the symptoms persist or worsen the patient needs to return immediately for re-evaluation. Based on the history and exam findings, there is no indication for further emergent testing or inpatient evaluation. I discussed with the patient/guardian the need to see the primary care provider for further evaluation of the symptoms. ED course: No acute complication regarding the AV fistula. Specifically no pseudoaneurysm. No direct connection from skin finding to fistula found. Patient states since started antibiotics skin finding has decreased. Patient plans to follow-up with vascular surgeon in [place] on Tuesday. I have personally reviewed all of the results, including but not limited to imaging deemed necessary to safely discharge this patient at this time. All results given to and printed out for patient. I personally went over all the results with the patient and answered all questions. Patient will follow-up with PCP and or specialist as discussed. Return precautions given and understood.. 02/03 16:09 Order name: Hemodialysis Graft; Complete Time: 17:30 EDMS Administered Medications: No medications were administered Disposition Summary: 02/04/24 17:37 Discharge Ordered Notes: Location: Home rn Problem: new rn Symptoms: have improved rn Condition: Stable rn Diagnosis - Rash and other nonspecific skin eruption rn Followup: rn - With: Private Physician - When: 2 - 3 days - Reason: Recheck today's complaints, Re-evaluation by your physician Discharge Instructions: - Discharge Summary Sheet rn - Rash, Adult rn Forms: - Medication Reconciliation Form rn - Antibiotic family law attorney - Prescription Opioid Use rn - Patient Portal Instructions rn - Leadership Thank You Letter rn Signatures: Dispatcher [employer] EDMS Tae Navarro MD MD rn Baxter, Heather, RN RN Corrections: (The following items were deleted from the chart) 16:09 15:16 Lower Extremity Artery [employer]+US.RAD.BRZ ordered. EDMS EDMS 17:25 15:16 Extremity Venous [employer]+US.RAD.BRZ ordered. EDMS EDMS
[2024-02-04 18:03] VITALS: BP 166/55; TEMP 98.2; O2SAT 98
== END 2024-02-04 17:46 | disposition home or self-care (01) ==
LOC: ER 14:43
DX: R21 Rash and other nonspecific skin eruption (principal); S50.822A Blister (nonthermal) of left forearm, initial encounter; Z99.2 Dependence on renal dialysis
CPT/HCPCS: 93990

== ENCOUNTER 2024-02-05 22:53 | Emergency (ER) | payer OTHER, MEDICARE ==
[2024-02-05] MEDS ORDERED: ACETAMINOPHEN 500 MG TAB ONE (23:33)
[2024-02-05] MEDS ORDERED: LIDOCAINE 1% 20 ML MDV ONE (23:33)
[2024-02-05] MEDS ORDERED: GUAIFENESIN/DM 5 ML UCUP ONE (23:34)
[2024-02-06 00:04] LABS: SARS-CoV-2 Antigen CONTROL BLUE LINE VIS/BG OK; SARS-CoV-2 Antigen Rapid Res Negative (Negative)
[2024-02-06] MEDS ORDERED: AZITHROMYCIN 250 MG TAB ONE (01:31)
--- NOTE | 2024-02-06 01:57 | EDPHYS ---
Physician Documentation [facility] Name: Rojas Gutierres Age: 84 yrs Sex: Male : 1940 Arrival Date: 02/05/2024 Time: 22:53 Bed 14 Private MD: ED Physician Kal Hooker HPI: 02/04 23:02 This 84 yrs old Male presents to ER via Unassigned with complaints of Head sp4 Injury-Adult, Fall Injury, Cough, Runny Nose, Fever. 02/05 21:40 84-year-old male presents with acute onset of head injury and scalp laceration on the sp4 right side with associated cough runny nose and reported fever of 102. Historical: - Allergies: 02/04 23:07 No Known Allergies; cm10 - PMHx: 23:07 Arthritis; Diabetes - NIDDM; Gout; Hyperlipidemia; Hypertension; Myocardial infarction; cm10 - PSHx: 23:07 Stented artery; cm10 - Immunization history:: Adult Immunizations up to date. - Infectious Disease History:: Denies. - Social history:: Smoking status: Patient denies any tobacco usage or history of. - Family history:: not pertinent. ROS: 02/05 21:40 Constitutional: Negative for fever, chills, and weight loss, positive fall, positive sp4 head injury, positive scalp laceration, positive runny nose, positive fever, positive cough All other systems are negative, Exam: 21:40 Constitutional: This is a well developed, well nourished patient who is awake, alert, sp4 and in no acute distress. Head/Face: Normocephalic, positive right parietal scalp laceration, oriented vertically and without active bleeding Eyes: Pupils equal round and reactive to light, extra-ocular motions intact. Lids and lashes normal. Conjunctiva and sclera are not injected. Cornea within normal limits. Periorbital areas with no swelling, redness, or edema. ENT: Nares patent. No nasal discharge, no septal abnormalities noted. Tympanic membranes are normal and external auditory canals are clear. Oropharynx with no redness, swelling, or masses, exudates, or evidence of obstruction, uvula midline. Mucous membranes moist. Neck: Trachea midline, no thyromegaly or masses palpated, and no cervical lymphadenopathy. Supple, full range of motion without nuchal rigidity, or vertebral point tenderness. Chest/axilla: Normal chest wall appearance and motion. Nontender with no deformity. No lesions are appreciated. Cardiovascular: Regular rate and rhythm with a normal S1 and S2. No gallops, murmurs, or rubs. Normal PMI, no JVD. No pulse deficits. Respiratory: Lungs have equal breath sounds bilaterally, clear to auscultation and percussion. No rales, rhonchi or wheezes noted. No increased work of breathing, no retractions or nasal flaring. Abdomen/GI: Soft, with normal bowel sounds. No distension or tympany. No guarding or rebound. No evidence of tenderness throughout. Back: No spinal tenderness. No costovertebral tenderness. Skin: Warm, dry with normal turgor. Normal color with no rashes, no lesions, and no evidence of cellulitis. MS/ Extremity: Pulses equal, no cyanosis. Neurovascular intact. Full, normal range of motion. Neuro: Awake and alert, GCS 15, oriented to person, place, time, and situation. Cranial nerves II-XII grossly intact. Motor strength 5/5 in all extremities. Sensory grossly intact. Psych: Awake, alert, with orientation to person, place and time. Behavior, mood, and affect are within normal limits Vital Signs: 02/04 23:08 BP 163 / 85; Pulse 64; Resp 16; Temp 99.2(O); Pulse Ox 100% on R/A; Weight 72.57 kg cm10 (R); Height 5 ft. 8 in. ; Pain 2/10; 02/05 00:00 BP 168 / 53; Pulse 65; Resp 17 S; Pulse Ox 95% on R/A; ha1 01:00 BP 152 / 51; Pulse 61; Resp 17 S; Pulse Ox 96% on R/A; ha1 01:44 BP 162 / 54; Pulse 61; Resp 17 S; Pulse Ox 96% on R/A; ha1 02/04 23:08 Body Mass Index 24.33 (72.57 kg, 172.72 cm) cm10 02/04 23:08 Pain Scale: Adult cm10 Adrien Coma Score: 02/04 23:08 Eye Response: spontaneous(4). Motor Response: obeys commands(6). Verbal Response: cm10 oriented(5). Total: 15. 02/05 01:54 Eye Response: spontaneous(4). Motor Response: obeys commands(6). Verbal Response: sp4 oriented(5). Total: 15. 21:40 Eye Response: spontaneous(4). Motor Response: obeys commands(6). Verbal Response: sp4 oriented(5). Total: 15. Laceration: 01:54 Wound Repair of 5cm ( 2.0in ) subcutaneous laceration to right frontal area. sp4 Irregularly shaped.. Hemostasis noted.. Distal neuro/vascular/tendon intact. Anesthesia: Wound infiltrated with 15 mls of 1% lidocaine. Wound prep: Moderate cleansing by me, Copious irrigation. Skin closed with 9 3-0 Silk using interrupted sutures and sterile technique. Dressed with 4x4's, Kerlix, pressure dressing. Patient tolerated well. MDM: 02/04 23:12 Patient medically screened. sp4 02/05 01:22 ED course: EXAM: CT Head Without Intravenous Contrast CLINICAL HISTORY: The patient is sp4 84 years old and is Male; head injury TECHNIQUE: Axial computed tomography images of the head/brain without intravenous contrast. Sagittal and coronal reformatted images were created and reviewed. This CT exam was performed using one or more of the following dose reduction techniques: automated exposure control, adjustment of the mA and/or kV according to patient size, and/or use of iterative reconstruction technique. COMPARISON: No relevant prior studies available. FINDINGS: BRAIN: A dural based calcified 1.1 x 1.2 cm right frontal lobe lesion is present. Bilateral basal ganglia cavitations are present. There is diffuse cerebral atrophy present, consistent with this patient's age. There is patchy hypoattenuation of the deep white matter which is non-specific, but most likely owing to chronic small vessel ischemic change in a patient of this age group. No intracranial hemorrhage, mass effect, midline shift is seen. There are no extra-axial fluid collections. VENTRICLES: Unremarkable. No ventriculomegaly. BONES/JOINTS: No acute fracture. SOFT TISSUES: Right parietal scalp soft tissue swelling is present. SINUSES: Unremarkable as visualized. No acute sinusitis. MASTOID AIR CELLS: Unremarkable as visualized. No mastoid effusion. ORBITS: Unremarkable as visualized. IMPRESSION: 1. No acute intracranial findings. Minimal right parietal scalp soft tissue swelling. 2. Findings suggest calcified right frontal lobe meningioma. No surrounding vasogenic edema. . ED course: EXAM DESCRIPTION: Chest Single View CLINICAL HISTORY: cough, fever COMPARISON: None FINDINGS: Cardiac silhouette is within normal limits. Blunted left costophrenic angle could be secondary to pleural fluid versus pleural thickening. There is atherosclerosis. Linear opacity at the left lower lung may represent scar versus subsegmental atelectasis. There is no acute osseous process visualized. IMPRESSION: Blunted left costophrenic angle could be secondary to pleural fluid versus pleural thickening. Linear opacity at the left lower lung may represent scar versus subsegmental atelectasis. Electronically signed by: Geoffrey Rico MD 02/06/2024 12:46 AM. 01:54 ED course: Discharge home.. sp4 21:40 Differential diagnosis: Contusion of Hematoma on Laceration of Intracranial bleed- sp4 Concussion cerebral contusion. Data reviewed: vital signs, nurses notes, old medical records, lab test result(s), Flu: negative radiologic studies, CT scan. ED course: Laceration repaired. Patient stable for discharge home. Patient was provided Zithromax p.o. for acute bronchitis. 02/04 23:21 Order name: Influenza Screen (a \T\ B); Complete Time: 01:23 sp4 02/04 23:21 Order name: SARS RAPID; Complete Time: 01:23 sp4 02/04 23:22 Order name: Chest Single View XRAY sp4 02/04 23:22 Order name: CT Head Brain wo Cont sp4 02/04 23:22 Order name: Dressing - Wound; Complete Time: 23:50 sp4 02/04 23:22 Order name: Gloves, Sterile; Complete Time: 23:50 sp4 02/04 23:22 Order name: Setup Suture Tray; Complete Time: 23:50 sp4 Administered Medications: 02/04 23:50 Drug: Acetaminophen PO 1000 mg PO once Route: PO; ha1 02/05 00:15 Follow up: Response: No adverse reaction; Marked relief of symptoms ha1 02/04 23:50 Drug: Dextromethorphan-Guaifenesin PO Liquid 10 mg-100 mg/5 mL 10 ml PO once Route: PO; ha1 02/05 00:15 Follow up: Response: No adverse reaction; Marked relief of symptoms 1 01:30 Drug: Lidocaine Infiltration (1 %) 20 ml 20 ml Infiltration once; to bedside {Note: ha1 administered by Dr. Hooker .} Volume: 20 ml; Route: Infiltration; 01:35 Drug: AZITHromycin PO 500 mg PO once Route: PO; ha1 02:12 Follow up: Response: No adverse reaction ha1 Disposition Summary: 02/06/24 01:56 Discharge Ordered Notes: Suture removal advised after 5 days Location: Home sp4 Problem: new sp4 Symptoms: have improved sp4 Condition: Stable sp4 Diagnosis - Laceration without foreign body of scalp sp4 - Acute head injury, acute fall at home, right parietal scalp laceration, acute sp4 bronchitis, acute febrile illness Followup: sp4 - With: Private Physician - When: 7 - 10 days - Reason: Recheck today's complaints Discharge Instructions: - Discharge Summary Sheet sp4 - Acute Bronchitis, Adult, [id number] sp4 - Laceration Care, Adult, [id number] sp4 Forms: - Patient Portal Instructions sp4 Prescriptions: - Zithromax Z-Luca 250 mg Oral Tablet - take 1 tablet ORAL route as directed for 5 days Day 1 - take two (2) tablets sp4 one time. Day 2, 3, 4 , 5 take one (1) tablet once daily.; 6 tablet; Refills: 0, Product Selection Permitted Signatures: Dispatcher [employer] Rebecca Lewis RN FABIANO ha1 Kal Hooker MD MD sp4 Anahi Husain RN RN cm10
--- NOTE | 2024-02-06 01:57 | ER ---
Nurse's Notes [facility] Name: Rojas Gutierres Age: 84 yrs Sex: Male : 1940 Arrival Date: 02/05/2024 Time: 22:53 Bed 14 Private MD: Diagnosis: Laceration without foreign body of scalp;Acute head injury, acute fall at home, right parietal scalp laceration, acute bronchitis, acute febrile illness Presentation: 02/04 23:08 Chief complaint: Patient states: he was walking with his walker, lost his balance and cm10 hit his head. Pt states that he did not lose consciousness. Pt not on blood thinners. PT noted to have laceration to side of head.Pt reports that he has also had a cough and runny nose for weeks and today developed a fever. PT reports taking 3 baby aspirin BELL CAPTAIN for the fever. Coronavirus screen: Client denies travel out of the [place] in the last 14 days. At this time, the client does not indicate any symptoms associated with coronavirus-19. Ebola Screen: Patient denies travel to an Ebola-affected area in the 21 days before illness onset. No symptoms or risks identified at this time. Mechanism of Injury: resulted from a fall, from a standing position. Initial Sepsis Screen: Does the patient meet any 2 criteria? No. Patient's initial sepsis screen is negative. Does the patient have a suspected source of infection? No. Patient's initial sepsis screen is negative. Risk Assessment: Do you want to hurt yourself or someone else? Patient reports no desire to harm self or others. 23:08 Method Of Arrival: Wheelchair cm10 23:08 Acuity: IOANA 3 cm10 Triage Assessment: 23:10 General: Appears in no apparent distress. comfortable, Behavior is calm, cooperative. cm10 Pain: Complains of pain in head. Neuro: No deficits noted. Level of Consciousness is awake, alert, obeys commands, Oriented to person, place, time, situation. Historical: - Allergies: 23:07 No Known Allergies; cm10 - PMHx: 23:07 Arthritis; Diabetes - NIDDM; Gout; Hyperlipidemia; Hypertension; Myocardial infarction; cm10 - PSHx: 23:07 Stented artery; cm10 - Immunization history:: Adult Immunizations up to date. - Infectious Disease History:: Denies. - Social history:: Smoking status: Patient denies any tobacco usage or history of. - Family history:: not pertinent. Screenin/29 01:47 [facility] ED Fall Risk Assessment (Adult) History of falling in the last 3 months, ha1 including since admission Yes- single mechanical fall (1 pt) Confusion or Disorientation No (0 pts) Intoxicated or Sedated No (0 pts) Impaired Gait No (0 pts) Mobility Assist Device Used Yes (1 pt) Altered Elimination No (0 pt) Score/Fall Risk Level 0 - 2 = Low Risk Oriented to surroundings, Maintained a safe environment, Educated pt \T\ family on fall prevention, incl call for assistance when getting out of bed, Hourly rounding (assess needs \T\ fall precautionary measures) done. Abuse screen: Denies threats or abuse. Denies injuries from another. Nutritional screening: No deficits noted. Tuberculosis screening: No symptoms or risk factors identified. Assessment: 02/04 23:11 General: Appears uncomfortable, Behavior is calm, cooperative. Pain: Complains of pain ha1 in top of head Pain does not radiate. Pain currently is 7 out of 10 on a pain scale. Neuro: Level of Consciousness is awake, alert, obeys commands, Oriented to person, place, time, situation. Cardiovascular: Capillary refill < 3 seconds Patient's skin is warm and dry. Respiratory: Airway is patent Respiratory effort is even, unlabored, Respiratory pattern is regular, symmetrical. Respiratory: Reports cough that is productive. GI: No signs and/or symptoms were reported involving the gastrointestinal system. Musculoskeletal: Circulation, motion, and sensation intact. Range of motion: intact in all extremities. Injury Description: Laceration sustained to top of head is clean, 7.6 to 20 cm long, bleeding moderately, moderate bleeding noted at this time. A dressing was applied. 23:50 Reassessment: going to CT. ha1 02/05 00:12 Reassessment: Patient and/or family updated on plan of care and expected duration. Pain ha1 level reassessed. Patient is alert, oriented x 3, equal unlabored respirations, skin warm/dry/pink. back from CT. 01:10 Reassessment: Patient and/or family updated on plan of care and expected duration. Pain ha1 level reassessed. Patient is alert, oriented x 3, equal unlabored respirations, skin warm/dry/pink. Vital Signs: 02/04 23:08 BP 163 / 85; Pulse 64; Resp 16; Temp 99.2(O); Pulse Ox 100% on R/A; Weight 72.57 kg cm10 (R); Height 5 ft. 8 in. ; Pain 11/19; 02/05 00:00 BP 168 / 53; Pulse 65; Resp 17 S; Pulse Ox 95% on R/A; ha1 01:00 BP 152 / 51; Pulse 61; Resp 17 S; Pulse Ox 96% on R/A; ha1 01:44 BP 162 / 54; Pulse 61; Resp 17 S; Pulse Ox 96% on R/A; ha1 02/04 23:08 Body Mass Index 24.33 (72.57 kg, 172.72 cm) cm10 02/04 23:08 Pain Scale: Adult cm10 Adrien Coma Score: 02/04 23:08 Eye Response: spontaneous(4). Motor Response: obeys commands(6). Verbal Response: cm10 oriented(5). Total: 15. 02/05 01:54 Eye Response: spontaneous(4). Motor Response: obeys commands(6). Verbal Response: sp4 oriented(5). Total: 15. 21:40 Eye Response: spontaneous(4). Motor Response: obeys commands(6). Verbal Response: sp4 oriented(5). Total: 15. ED Course: 02/04 22:55 Patient arrived in ED. ra3 23:02 Kal Hooker MD is Attending Physician. sp4 23:10 Triage completed. cm10 23:10 Arm band placed on Patient placed in an exam room, on a stretcher. cm10 23:11 Patient has correct armband on for positive identification. Placed in gown. Bed in low ha1 position. Call light in reach. Side rails up X 1. Adult w/ patient. 23:29 Rebecca Bates RN is Primary Nurse. ha1 23:46 Chest Single View XRAY In Process Unspecified. EDMS 23:50 SARS RAPID Sent. ha1 23:50 Influenza Screen (a \T\ B) Sent. ha1 23:56 CT Head Brain wo Cont In Process Unspecified. EDMS 02/05 02:12 No provider procedures requiring assistance completed. Patient did not have IV access ha1 during this emergency room visit. Administered Medications: 02/04 23:50 Drug: Acetaminophen PO 1000 mg PO once Route: PO; ha1 02/05 00:15 Follow up: Response: No adverse reaction; Marked relief of symptoms ha1 02/04 23:50 Drug: Dextromethorphan-Guaifenesin PO Liquid 10 mg-100 mg/5 mL 10 ml PO once Route: PO; ha1 02/05 00:15 Follow up: Response: No adverse reaction; Marked relief of symptoms ha1 01:30 Drug: Lidocaine Infiltration (1 %) 20 ml 20 ml Infiltration once; to bedside {Note: ha1 administered by Dr. Hooker .} Volume: 20 ml; Route: Infiltration; 01:35 Drug: AZITHromycin PO 500 mg PO once Route: PO; ha1 02:12 Follow up: Response: No adverse reaction ha1 Medication: 02:13 VIS not applicable for this client. ha1 Outcome: 01:56 Discharge ordered by . [email or web address] 02:12 Discharged to home via wheelchair, with family, ha1 02:12 Condition: stable 02:12 Discharge instructions given to patient, family, Instructed on discharge instructions, follow up and referral plans. medication usage, Demonstrated understanding of instructions, follow-up care, medications, Prescriptions given X 1, 02:13 Patient left the ED. ha1 Signatures: Dispatcher [employer] EDMS Rebecca Bates RN RN ha1 Kal Hooker MD MD sp4 Anahi Husain RN RN cm10 Phyllis Galicia 3 Corrections: (The following items were deleted from the chart) 01:47 02/04 23:11 Injury Description: Laceration sustained to top of head is 2.6 to 7.5 cm ha1 long, not bleeding, a small amount of bleeding noted at this time. A dressing was applied. ha1
[2024-02-06 02:49] VITALS: BP 162/54; TEMP 99.2; O2SAT 96
--- NOTE | 2024-02-06 11:50 | RAD REPORT ---
EXAM DESCRIPTION: Chest Single View CLINICAL HISTORY: Cough, fever COMPARISON: None FINDINGS: Cardiac silhouette is within normal limits. Blunted left costophrenic angle could be secon evangelista to pleural fluid versus pleural thickening. There is atherosclerosis. Linear opacity at the left lower lung may represent scar versus subsegmental atelectasis. There is no acute osseous process vis ualized. IMPRESSION: Blunted left costophrenic angle could be secondary to pleural fluid versus pleural thick ening. Linear opacity at the left lower lung may represent scar versus subsegmental atelectasis. Electronically signed by: Geoffrey Rico MD 02/06/2024 12:46 AM CDT Due to temporary technical issues with the PACS/Fluency reporting system, reports are being signed by the in house radiologist without review as a courtesy to ensure prompt reporting. The interpreting r adiologist is fully responsible for the content of the report.
--- NOTE | 2024-02-06 12:02 | RAD REPORT ---
EXAM DESCRIPTION: CT Head Without Intravenous Contrast CLINICAL HISTORY: The patient is 84 years old and is Male; head injury TECHNIQUE: Axial computed tomography images of the head/brain without intravenous contrast. Sagitt al and coronal reformatted images were created and reviewed. This CT exam was performed using one o r more of the following dose reduction techniques: automated exposure control, adjustment of the mA and/or kV according to patient size, and/or use of iterative reconstruction technique. COMPARISON: No relevant prior studies available. FINDINGS: BRAIN: A dural based calcified 1.1 x 1.2 cm right frontal lobe lesion is present. Bila teral basal ganglia cavitations are present. There is diffuse cerebral atrophy present, consistent with this patient's age. There is patchy hypoattenuation of the deep white matter which is non-spec ific, but most likely owing to chronic small vessel ischemic change in a patient of this age group. No intracranial hemorrhage, mass effect, midline shift is seen. There are no extra-axial fluid colle ctions. VENTRICLES: Unremarkable. No ventriculomegaly. BONES/JOINTS: No acute fracture. SOFT TISSUES: Right parietal scalp soft tissue swelling is present. SINUSES: Unremarkable as visualized. No acute sinusitis. MASTOID AIR CELLS: Unremarkable as visualized. No mastoid effusion. ORBITS: Unremarkable as visualized. IMPRESSION: 1. No acute intracranial findings. Minimal right parietal scalp soft tissue swelling. 2. Findings suggest calcified right frontal lobe meningioma. No surrounding vasogenic edema. Electronically signed by: Nighat Freitas MD 02/06/2024 12:15 AM CDT Due to temporary technical issues with the PACS/Fluency reporting system, reports are being signed by the in house radiologist without review as a courtesy to ensure prompt reporting. The interpreting r adiologist is fully responsible for the content of the report.
== END 2024-02-06 02:13 | disposition home or self-care (01) ==
LOC: ER 22:53
PROC: 0HQ0XZZ Repair Scalp Skin, External Approach (ICD-10-PCS; principal; 2024-02-06)
DX: S01.01XA Laceration without foreign body of scalp, initial encounter (principal); W19.XXXA Unspecified fall, initial encounter; Y92.009 Unspecified place in unspecified non-institutional (private) residence as the place of occurrence of the external cause; J20.9 Acute bronchitis, unspecified; R50.9 Fever, unspecified; Z11.52 Encounter for screening for COVID-19
CPT/HCPCS: 36415; 87804 ×2; 70450; 71045; 87811; 12002; J2001; 99284

== ENCOUNTER 2024-03-07 12:28 | Inpatient (IN) | payer OTHER, MEDICARE ==
[2024-03-07 13:05] LABS: Arterial Blood Carboxyhemoglob 0.9 % (0-1.5); Blood Gas Oxyhemoglobin 42.2 % (94-97); Blood O2 Saturation 43.5 % (92-98.5)
--- NOTE | 2024-03-07 13:20 | RAD REPORT ---
EXAM DESCRIPTION: Sarah Single View03/07/2024 1:11 pm CLINICAL HISTORY: Shortness COMPARISON: January 2024 FINDINGS: Small to moderate bilateral pleural effusions with bibasilar atelectasis Mild bilateral additional pulmonary opacities Heart is moderately enlarged IMPRESSION: These findings most likely represent CHF
[2024-03-07 13:23] LABS: Absolute Basophils 0.1 K/uL (0-0.5); Absolute Eosinophils 0.1 K/uL (0-0.5); Absolute Lymphocytes (CBC) 0.7 K/uL (0.7-4.9); Absolute Monocytes 0.6 K/uL (0.1-1.3); Basophils % 0.9 % (0-1.3); Eosinophils % 0.9 % (0-4.4); Hemoglobin 10.7 g/dL (13.6-17.9); Lymphocytes % 7.9 % (15.3-44.8); MCH 31.9 pg (27.0-35.0); MCHC 33.3 g/dL (32.0-36.0); MCV 95.9 fL (80-100); MPV 9.8 fL (7.6-11.3); Monocytes % 7.7 % (3.3-12.3); Neutrophils % 82.6 % (41.7-73.7); Platelets 174 thou/uL (152-406); RBC Red Blood Cell Count 3.34 M/uL (4.33-5.43)
[2024-03-07 14:08] LABS: PT Prothrombin Time 12.6 SECONDS (9.5-12.5); Protime INR 1.15
[2024-03-07 14:28] LABS: Albumin 3.1 g/dL (3.4-5.0); Anion Gap 8.9 mEq/L (5.0-15.0); Bilirubin Direct 0.2 mg/dL (0-0.2); Bilirubin Indirect, Calculated 0.4 mg/dL (0.2-0.8); Bilirubin Total 0.6 mg/dL (0.2-1.0); Protein, Total 6.1 g/dL (6.4-8.2); Troponin High Sensitivity 44.2 pg/mL (<58.9)
[2024-03-07 14:33] LABS: Magnesium 1.9 mg/dL (1.6-2.4); Potassium 4.9 mEq/L (3.5-5.1)
--- NOTE | 2024-03-07 15:33 | ER ---
Nurse's Notes [facility] Name: Rojas Gutierres Age: 84 yrs Sex: Male : 1940 Arrival Date: 03/07/2024 Time: 12:28 Bed 18 Private MD: Diagnosis: CHF exacerbation, dyspnea Presentation: 03/07 12:39 Chief complaint: EMS states: SOB over x3 days, pulse ox 88% RA on arrival, placed on 3L rs5 nasal cannula and is now sat 95%. Coronavirus screen: At this time, the client does not indicate any symptoms associated with coronavirus-19. Ebola Screen: No symptoms or risks identified at this time. Initial Sepsis Screen: Does the patient meet any 2 criteria? No. Patient's initial sepsis screen is negative. Does the patient have a suspected source of infection? No. Patient's initial sepsis screen is negative. Risk Assessment: Do you want to hurt yourself or someone else? Patient reports no desire to harm self or others. Onset of symptoms was March 07, 2024. Care prior to arrival: IV initiated. 20 GA, in the right antecubital area. 12:39 Method Of Arrival: EMS: [facility] rs5 12:39 Acuity: IOANA 3 rs5 Historical: - Allergies: 12:42 No Known Allergies; rs5 - PMHx: 12:42 Diabetes - NIDDM; Gout; Hyperlipidemia; Arthritis; Hypertension; Myocardial infarction; rs5 - PSHx: 12:42 Stented artery; rs5 - Immunization history:: Adult Immunizations up to date. - Infectious Disease History:: Denies. - Social history:: Smoking status: . Screenin:42 [facility] ED Fall Risk Assessment (Adult) History of falling in the last 3 months, rs5 including since admission No falls in past 3 months (0 pts) Confusion or Disorientation No (0 pts) Intoxicated or Sedated No (0 pts) Impaired Gait No (0 pts) Mobility Assist Device Used No (0 pt) Altered Elimination No (0 pt) Score/Fall Risk Level 0 - 2 = Low Risk Oriented to surroundings, Maintained a safe environment. 12:42 Abuse screen: Denies threats or abuse. Nutritional screening: No deficits noted. rs5 Tuberculosis screening: No symptoms or risk factors identified. Assessment: 12:41 General: Appears in no apparent distress. comfortable, Behavior is calm, cooperative. rs5 Pain: Denies pain. Neuro: Level of Consciousness is awake, alert, obeys commands, Oriented to person, place, time, situation. Cardiovascular: Rhythm is regular. Respiratory: Airway is patent Respiratory effort is even, unlabored, Respiratory pattern is regular, symmetrical. Respiratory: Respiratory: Reports shortness of breath. GI: Abdomen is round non-distended, Abd is soft and non tender X 4 quads. : No signs and/or symptoms were reported regarding the genitourinary system. EENT: No signs and/or symptoms were reported regarding the EENT system. Derm: Skin is intact, Skin is pink, warm \T\ dry. Musculoskeletal: Range of motion: intact in all extremities. 13:10 Reassessment: Patient and/or family updated on plan of care and expected duration. Pain rs5 level reassessed. Patient is alert, oriented x 3, equal unlabored respirations, skin warm/dry/pink. 14:19 Reassessment: Patient and/or family updated on plan of care and expected duration. Pain rs5 level reassessed. Patient is alert, oriented x 3, equal unlabored respirations, skin warm/dry/pink. Patient states feeling better. 15:38 Reassessment: No changes from previously documented assessment. rs5 17:30 Reassessment: Patient and/or family updated on plan of care and expected duration. Pain rs5 level reassessed. Patient is alert, oriented x 3, equal unlabored respirations, skin warm/dry/pink. Patient denies pain at this time. 17:59 Reassessment: No changes from previously documented assessment. rs5 19:00 Reassessment: Patient appears in no apparent distress at this time. Patient and/or jb4 family updated on plan of care and expected duration. Pain level reassessed. Patient is alert, oriented x 3, equal unlabored respirations, skin warm/dry/pink. 19:57 Reassessment: Patient appears in no apparent distress at this time. Patient and/or jb4 family updated on plan of care and expected duration. Pain level reassessed. Patient is alert, oriented x 3, equal unlabored respirations, skin warm/dry/pink. Vital Signs: 12:39 BP 181 / 74; Pulse 80; Resp 20; Temp 97.7(O); Pulse Ox 96% on 3 lpm NC; rs5 13:10 BP 183 / 69; Pulse 71; Resp 18; Pulse Ox 96% on 3 lpm NC; rs5 15:00 BP 165 / 59; Pulse 74; Resp 17; Pulse Ox 96% on 3 lpm NC; rs5 17:32 BP 170 / 77; Pulse 76; Resp 18; Pulse Ox 95% on 3 lpm NC; rs5 17:59 BP 166 / 78; Pulse 77; Resp 18; Pulse Ox 96% on 3 lpm NC; rs5 19:00 BP 153 / 51; Pulse 62; Resp 16; Pulse Ox 93% on R/A; jb4 ED Course: 12:39 Patient arrived in ED. bc6 12:39 Perry Hamm MD is Attending Physician. sp3 12:39 Cristobal Floyd, FABIANO is Primary Nurse. rs5 12:42 Triage completed. rs5 12:42 No provider procedures requiring assistance completed. rs5 12:42 Patient has correct armband on for positive identification. Placed in gown. Bed in low rs5 position. Call light in reach. Side rails up X2. 13:07 Initial lab(s) drawn, by me, sent to lab. EKG done, by ED staff, reviewed by Perry jal Hamm MD. Maintain EMS IV. Dressing intact. Good blood return noted. Site clean \T\ dry. Gauge \T\ site: 20G RAC. 13:13 XRAY Chest (1 view) In Process Unspecified. EDMS 13:55 ABG: vbg Sent. jg11 13:55 Lab(s) recollected, by me, sent to lab. jg11 15:32 Immanuel Moon MD is Hospitalizing Provider. sp3 16:11 Pillow given. aw1 18:07 Patient admitted, IV remains in place. rs5 Administered Medications: 15:50 Drug: Furosemide IVP 40 mg IVP once; give over 2 minutes Route: IVP; Site: right rs5 antecubital; 16:10 Follow up: Response: No adverse reaction rs5 Medication: 13:10 VIS not applicable for this client. rs5 Outcome: 15:32 Decision to Hospitalize by Provider. sp3 18:07 Admitted to ER Hold. Please see [facility] for further documentation. rs5 18:07 Condition: stable 18:07 Instructed on the need for admit, Demonstrated understanding of instructions, 22:37 Patient left the ED. cm10 Signatures: Dispatcher [employer] EDMS Bala Laureano, RN RN jb4 Perry Hamm MD MD sp3 Cristobal Floyd RN RN rs5 Nelda Sales6 Anahi Husain RN RN cm10 Bella Desai1 Colten Huff jg11 Corrections: (The following items were deleted from the chart) 17:31 13:10 BP 183 / 69; Pulse 71bpm; Resp 18bpm; Pulse Ox 96% RA; rs5 rs5 17:59 15:00 BP 185 / 72; Pulse 74bpm; Resp 17bpm; Pulse Ox 96% 3 lpm Nasal Cannula; rs5 rs5
--- NOTE | 2024-03-07 15:33 | EDPHYS ---
Physician Documentation [facility] Name: Rojas Gutierres Age: 84 yrs Sex: Male : 1940 Arrival Date: 03/07/2024 Time: 12:28 Bed 18 Private MD: ED Physician Perry Hamm HPI: 03/07 13:45 This 84 yrs old Male presents to ER via EMS with complaints of Shortness Of Breath. sp3 13:45 84-year-old male with history of diabetes, hyperlipidemia, hypertension, SD, CAD now sp3 presents with dyspnea on exertion shortness of breath for 3 days worsening in nature. Patient feels better after he sits up. He denies any chest pain, back pain, fever, cough, abdominal pain, vomiting, diarrhea, rash, or any other signs or symptoms on ROS at this time. He does say his legs swell up occasionally including currently. Patient also states he has been on dialysis to report but "they took me off of it a month ago".. Historical: - Allergies: 12:42 No Known Allergies; rs5 - PMHx: 12:42 Diabetes - NIDDM; Gout; Hyperlipidemia; Arthritis; Hypertension; Myocardial infarction; rs5 - PSHx: 12:42 Stented artery; rs5 - Immunization history:: Adult Immunizations up to date. - Infectious Disease History:: Denies. - Social history:: Smoking status: . ROS: 13:46 Constitutional: Negative for fever, chills, and weight loss, Eyes: Negative for injury, sp3 pain, redness, and discharge, ENT: Negative for injury, pain, and discharge, Neck: Negative for injury, pain, and swelling, Abdomen/GI: Negative for abdominal pain, nausea, vomiting, diarrhea, and constipation, Back: Negative for injury and pain, MS/Extremity: Negative for injury and deformity, Skin: Negative for injury, rash, and discoloration, Neuro: Negative for headache, weakness, numbness, tingling, and seizure, Psych: Negative for depression, anxiety, suicide ideation, homicidal ideation, and hallucinations, Allergy/Immunology: Negative for hives, rash, and allergies, Endocrine: Negative for neck swelling, polydipsia, polyuria, polyphagia, and marked weight changes, Hematologic/Lymphatic: Negative for swollen nodes, abnormal bleeding, and unusual bruising, 13:46 All other systems are negative, Exam: 13:46 Constitutional: This is a well developed, well nourished patient who is awake, alert, sp3 and in no acute distress. Head/Face: Normocephalic, atraumatic. Eyes: Pupils equal round and reactive to light, extra-ocular motions intact. Lids and lashes normal. Conjunctiva and sclera are non-icteric and not injected. Cornea within normal limits. Periorbital areas with no swelling, redness, or edema. ENT: Nares patent. No nasal discharge, no septal abnormalities noted. External auditory canals are clear. Oropharynx with no redness, swelling, or masses, exudates, or evidence of obstruction, uvula midline. Mucous membranes moist. Neck: Trachea midline, no thyromegaly or masses palpated, and no cervical lymphadenopathy. Supple, full range of motion without nuchal rigidity, or vertebral point tenderness. No Meningismus. Chest/axilla: Normal chest wall appearance and motion. Nontender with no deformity. No lesions are appreciated. Cardiovascular: Regular rate and rhythm with a normal S1 and S2. No gallops, murmurs, or rubs. Normal PMI, no JVD. No pulse deficits. Abdomen/GI: Soft, non-tender, with normal bowel sounds. No distension or tympany. No guarding or rebound. No evidence of tenderness throughout. Back: No spinal tenderness. No costovertebral tenderness. Full range of motion. Skin: Warm, dry with normal turgor. Normal color with no rashes, no lesions, and no evidence of cellulitis. Neuro: Awake and alert, GCS 15, oriented to person, place, time, and situation. Cranial nerves II-XII grossly intact. Motor strength 5/5 in all extremities. Sensory grossly intact. Cerebellar exam normal. Normal gait. Psych: Awake, alert, with orientation to person, place and time. Behavior, mood, and affect are within normal limits. 13:46 Respiratory: Rales bilaterally, 13:47 Musculoskeletal/extremity: Peripheral edema on lower extremities.. sp3 13:55 ECG was reviewed by the Attending Physician. EKG demonstrates sinus versus junctional sp3 rhythm at 63 bpm with normal axis, normal QRS and nonspecific diffuse ST's ST changes without evidence of acute ischemia. Vital Signs: 12:39 BP 181 / 74; Pulse 80; Resp 20; Temp 97.7(O); Pulse Ox 96% on 3 lpm NC; rs5 13:10 BP 183 / 69; Pulse 71; Resp 18; Pulse Ox 96% on 3 lpm NC; rs5 15:00 BP 165 / 59; Pulse 74; Resp 17; Pulse Ox 96% on 3 lpm NC; rs5 17:32 BP 170 / 77; Pulse 76; Resp 18; Pulse Ox 95% on 3 lpm NC; rs5 17:59 BP 166 / 78; Pulse 77; Resp 18; Pulse Ox 96% on 3 lpm NC; rs5 19:00 BP 153 / 51; Pulse 62; Resp 16; Pulse Ox 93% on R/A; jb4 MDM: 12:39 Patient medically screened. 3 13:47 Data reviewed: vital signs, nurses notes, old medical records, lab test result(s), EKG, sp3 radiologic studies. ED course: 84-year-old male with shortness of breath. Differential diagnosis includes congestive heart failure, pneumonia, SD/CAD spectrum, viral syndrome, the pulmonary process, among others. Workup will include EKG, chest x-ray and general laboratory values and supportive care and further medications as indicated. Given age and comorbidities, patient will need to be admitted for probable CHF.. 15:32 ED course: Troponin negative. BNP 17,000. Lasix given and patient will be admitted at [facility] this time.. 03/07 12:40 Order name: Basic Metabolic Panel; Complete Time: 15:30 [facility] 03/07 12:40 Order name: CBC with Diff; Complete Time: 13:45 [facility] 03/07 12:40 Order name: LFT's; Complete Time: 15:30 [facility] 03/07 12:40 Order name: Magnesium; Complete Time: 15:30 [facility] 03/07 12:40 Order name: NT PRO-BNP; Complete Time: 15:30 [facility] 03/07 12:40 Order name: PT-INR; Complete Time: 14:18 [facility] 03/07 12:40 Order name: Troponin HS; Complete Time: 15:30 [facility] 03/07 12:40 Order name: ABG: vbg; Complete Time: 16:59 [facility] 03/07 17:22 Order name: T4 Free [facility] 03/07 17:22 Order name: Thyroid Stimulating Hormone [facility] 03/07 17:23 Order name: Basic Metabolic Panel [facility] 03/07 17:23 Order name: Basic Metabolic Panel [facility] 03/07 17:23 Order name: CBC with Automated Diff [facility] 03/07 17:23 Order name: CBC with Automated Diff [facility] 03/07 17:23 Order name: Lipid Profile [facility] 03/07 17:23 Order name: Lipid Profile [facility] 03/07 17:23 Order name: Magnesium [facility] 03/07 17:24 Order name: Magnesium [facility] 03/07 17:24 Order name: Phosphorus [facility] 03/07 17:24 Order name: Troponin High Sensitivity [facility] 03/07 17:24 Order name: Troponin High Sensitivity [facility] 03/07 12:40 Order name: XRAY Chest (1 view); Complete Time: 13:45 3 03/07 12:40 Order name: EKG; Complete Time: 12:40 3 03/07 17:22 Order name: CONS Physician Consult [facility] 03/07 12:40 Order name: Cardiac monitoring; Complete Time: 13:08 3 03/07 12:40 Order name: EKG - Nurse/Tech; Complete Time: 13:08 3 03/07 12:40 Order name: IV Saline Lock; Complete Time: 13:08 3 03/07 12:40 Order name: Labs collected and sent; Complete Time: 13: 3 03/07 12:40 Order name: O2 Per Protocol; Complete Time: 13: 3 03/07 12:40 Order name: O2 Sat Monitoring; Complete Time: 13: 3 03/07 13:39 Order name: Labs - recollect needed; Complete Time: 13:55 iw Administered Medications: 15:50 Drug: Furosemide IVP 40 mg IVP once; give over 2 minutes Route: IVP; Site: right rs5 antecubital; 16:10 Follow up: Response: No adverse reaction rs5 Disposition Summary: 03/07/24 15:32 Hospitalization Ordered Notes: Hospitalization Status: Inpatient Admission sp3 Provider: Immanuel Moon3 Location: Telemetry/MedSurg (Inpatient) sp3 Condition: Stable sp3 Problem: an acute exacerbation sp3 Symptoms: have worsened sp3 Bed/Room Type: Standard sp3 Room Assignment: 220(03/07/24 20:05) Diagnosis - CHF exacerbation, dyspnea sp3 Forms: - Medication Reconciliation Form sp3 - SBAR form sp3 - Leadership Thank You Letter sp3 Signatures: Dispatcher [employer] EDFlora Mujica, RN Carolyn Perkins RN RN iw Patel, Setul, MD MD sp3 Cristobal Floyd RN RN rs5 Corrections: (The following items were deleted from the chart) 12:40 12:40 BASIC METABOLIC PANEL+C.LAB.BRZ ordered. EDMS EDMS 12:40 12:40 CBC+H.LAB.BRZ ordered. EDMS EDMS 12:40 12:40 HEPATIC FUNCTION+C.LAB.BRZ ordered. EDMS EDMS 12:40 12:40 MAGNESIUM+C.LAB.BRZ ordered. EDMS EDMS 12:40 12:40 PROBNP+C.LAB.BRZ ordered. EDMS EDMS 12:40 12:40 PROTIME (+INR)+COAG.LAB.BRZ ordered. EDMS EDMS 12:40 12:40 Troponin High Sensitivity+C.LAB.BRZ ordered. EDMS EDMS 12:40 12:40 Arterial Blood Gas+RC.LAB.BRZ ordered. EDMS EDMS 13:47 13:45 84-year-old male with history of diabetes, hyperlipidemia, hypertension, SD, CAD sp3 now presents with dyspnea on exertion shortness of breath for 3 days worsening in nature. Patient feels better after he sits up. He denies any chest pain, back pain, fever, cough, abdominal pain, vomiting, diarrhea, rash, or any other signs or symptoms on ROS at this time. He does say his legs swell up occasionally including currently.. sp3 20:05 15:32 sp3 aldair
[2024-03-07] MEDS ORDERED: FUROSEMIDE 40 MG/4 ML VIAL ONE (15:53)
--- NOTE | 2024-03-07 16:04 | P.HP ---
Certification for Inpatient Patient admitted to: Observation With expected LOS: <2 Midnights Patient will require the following post-hospital care: None Practitioner: I am a practitioner with admitting privileges, knowledge of patient current condition, hospital course, and medical plan of care. Services: Services provided to patient in accordance with Admission requirements found in Title 42 Section 412.3 of the Code of Federal Regulations Patient History Date of Service: 03/08/24 Reason for admission: acute hypoxic respiratory failure History of Present Illness: Rojas Gutierres is an 84 year old male with Pmhx HTN, HLD, CAD with stents, [place], Diabetes mellitus, and renal disease who presents to the ED with chief complaint of shortness of breath that has worsened this morning. He reports feeling out of breath while tieing his shoe but didn't think anything about it til this morning when he felt worse. He reports EMS staing his oxygen level was in the 70s. He sees Dr. Horner and has an ECHO/stress test at his office last week. Of note, he was in the ED and was shipped to [facility] for a hematoma in his back. Since then he has had therapy to help strengthen his left leg. Initial vitals: BP 181 / 74; Pulse 80; Resp 20; Temp 97.7(O); Pulse Ox 96% on 3 lpm NC Laboratory evaluation H&H 10.7/32, platelets 174, left shift neutrophils 82.6, troponin 44.1, BNP 17,329 BUN/creatinine 40/2.28, GFR 27. Chest xray reports "Small to moderate bilateral pleural effusions with bibasilar atelectasis. Mild bilateral additional pulmonary opacities. Heart is moderately enlarged." Rojas will be admitted to hospitalist service for further evaluation and treatment of Acute hypoxic respiratory failure 2/2 CHF exacerbation. Allergies iodine Allergy (Verified 09/16/22 10:16) Rash shellfish derived Allergy (Verified 09/16/22 10:16) Rash Home Medications: Amlodipine Besylate 1 tab PO DAILY 07/15/22 Ezetimibe 1 tab PO DAILY 07/15/22 Glimepiride 1 tab PO DAILY 07/15/22 Clopidogrel Bisulfate [Plavix*] 75 mg PO DAILY 30 Days #30 tab 08/06/22 Ferrous Sulfate [Iron] 325 mg PO DAILY 30 Days #30 tab 08/06/22 carvediloL [Coreg] 6.25 mg PO BID 30 Days #60 tab 08/06/22 Febuxostat 40 mg PO PRN PRN 09/16/22 Hydralazine [Apresoline] 20 mg PO BID 09/16/22 Amiodarone HCl [Pacerone] 200 mg PO DAILY 03/08/24 Amlodipine [Norvasc*] 5 mg PO DAILY 03/08/24 Atorvastatin Calcium 40 mg PO DAILY 03/08/24 Dapagliflozin Propanediol [Farxiga] 5 mg PO DAILY 30 Days #30 tab 03/08/24 Docusate Sodium [Colace] 100 mg PO DAILY 03/08/24 Ezetimibe 10 mg PO DAILY 03/08/24 Ferrous Sulfate 65 mg PO DAILY 03/08/24 Folic Acid/Vit B Complex and C [Erma-Amadou Tablet] 0.8 mg PO DAILY 03/08/24 Levothyroxine [Synthroid*] 25 mcg PO DAILY 03/08/24 Metoprolol Succinate [Toprol Xl] 25 mg PO DAILY 03/08/24 Pantoprazole [Protonix Tab*] 40 mg PO DAILY 03/08/24 - Past Medical/Surgical History -: Hypertension -: Gout -: Diabetes mellitus type 2 -: HLD -: OA Past Surgical History: Reviewed- Non-Contributory - Social History Alcohol use: No CD- Drugs: No Caffeine use: Yes Review of Systems Respiratory: Shortness of Breath Physical Examination - Physical Exam General: Alert, In no apparent distress, Oriented x3 HEENT: Atraumatic, Normocephalic, PERRLA Neck: Supple, 2+ carotid pulse no bruit Respiratory: Clear to auscultation bilaterally, Normal air movement Cardiovascular: Normal pulses, Regular rate/rhythm, Normal S1 S2 Capillary refill: <2 Seconds Gastrointestinal: Normal bowel sounds, Hypoactive, Soft and benign Musculoskeletal: No contractures Integumentary: No rashes - Studies Laboratory Data (last 24 hrs) 03/07/24 03/07/24 03/07/24 13:54 13:54 13:04 WBC 8.50 Hgb 10.7 L Hct 32.0 L Plt Count 174 PT 12.6 H INR 1.15 Sodium 140 Potassium 4.9 BUN 40 H Creatinine 2.28 H Glucose 191 H Magnesium 1.9 Total Bilirubin 0.6 AST 26 ALT 38 Alkaline Phosphatase 103 Assessment and Plan - Plan Assessment and Plan Acute hypoxic respiratory failure 2/2 CHF exacerbation Hx CAD/AZ with stents -Lasix BID -Strict I and O -daily weight -reports ECHO and stress test performed at Dr. Horner's office -Continue home medications if appropriate -Oxygen supplementation -Dr. Horner consulted Diabetes mellitus -reports treatment stopped by PCP -serum glucose 191 -A1C pending -Accu-Chek with sliding scale insulin RANDY -BUN/creatinine 40/2.28 -Consult Dr. Barrett for diuresing Hx HTN/HLD History of gout History of OA HX spinal hematoma affecting left lower extremity (Sep 2023) -Supportive care -Can walk with a walker -Continue home medications when available DVT ppx heparin Full code LOS 2 days Discharge Plan: Home Plan to discharge in: 24 Hours - Advance Directives Does patient have a Living Will: No Does patient have a Durable POA for Healthcare: No
[2024-03-07] MEDS ORDERED: ACETAMINOPHEN 500 MG TAB PO PRN (16:58)
[2024-03-07] MEDS: FUROSEMIDE 40 MG/4 ML VIAL IV SCH (17:00)
[2024-03-07 18:58] VITALS: BMI 24.3
[2024-03-07 23:23] LABS: Thyroid Stimulating Hormone 5.26 uIU/mL (0.358-3.740)
[2024-03-08 03:15] LABS: Absolute Basophils 0.1 K/uL (0-0.5); Absolute Eosinophils 0.2 K/uL (0-0.5); Absolute Monocytes 0.7 K/uL (0.1-1.3); Absolute Neutrophil 4.2 K/uL (1.8-8.0); Basophils % 1.1 % (0-1.3); Eosinophils % 2.6 % (0-4.4); Hematocrit 27.4 % (39.6-49.0); Hemoglobin 9.1 g/dL (13.6-17.9); MCH 31.6 pg (27.0-35.0); MCHC 33.4 g/dL (32.0-36.0); MCV 94.5 fL (80-100); MPV 9.5 fL (7.6-11.3); Monocytes % 11.6 % (3.3-12.3); Neutrophils % 68.7 % (41.7-73.7); Nucleated Red Blood Cells % 0.1 % (0-0); Platelets 145 thou/uL (152-406); Red Cell Distribution Width 15.8 % (12.1-15.2)
[2024-03-08 03:27] LABS: Anion Gap 8.6 mEq/L (5.0-15.0); Magnesium 1.7 mg/dL (1.6-2.4); Phosphorus 3.9 mg/dL (2.5-4.9); Potassium 3.6 mEq/L (3.5-5.1)
[2024-03-08] MEDS: LEVOTHYROXINE SOD 0.025 MG TAB PO SCH (06:57)
[2024-03-08] MEDS: carvediloL 6.25 MG TAB PO SCH (08:00)
[2024-03-08] MEDS ORDERED: DOCUSATE NA 50 MG/5 ML UCUP PO SCH (09:00)
[2024-03-08] MEDS: AMIODARONE HCL 200 MG TAB PO SCH (09:13)
[2024-03-08] MEDS: DOCUSATE NA 100 MG CAP PO SCH (09:14)
[2024-03-08] MEDS: FUROSEMIDE 40 MG/4 ML VIAL IV SCH (09:14)
[2024-03-08] MEDS: CLOPIDOGREL 75 MG TABLET PO SCH (09:14)
[2024-03-08] MEDS: ATORVASTATIN 40 MG TAB PO SCH (09:14)
[2024-03-08] MEDS: EZETIMIBE 10 MG TAB PO SCH (09:14)
[2024-03-08] MEDS: AMLODIPINE 5 MG TAB PO SCH (09:15)
[2024-03-08] MEDS: SPIRONOLACTONE 25 MG TABLET PO SCH (10:34)
--- NOTE | 2024-03-08 14:26 | RAD REPORT ---
EXAM DESCRIPTION: CT - Thorax Wo Con CLINICAL HISTORY: Chest pain Pneumonia COMPARISON: <Comparisons> FINDINGS: Mild to moderate atelectasis is present both lung bases. Moderate bilateral pleural effusi ons. No pneumothorax. No axillary, mediastinal or hilar adenopathy. Aortic atherosclerosis. Moderate thoracic degenerative changes. Cholelithiasis. All CT scans are performed using dose optimization technique as appropriate and may include automated exposure control or mA/KV adjustment according to patient size. IMPRESSION: Moderate bilateral pleural effusions with atelectasis in both posterior lung bases. Cholelithiasis.
[2024-03-08] MEDS: INSULIN REGULAR (HUMAN) 100 UNIT/ML SQ SCH (16:30)
--- NOTE | 2024-03-08 17:11 | P.PN ---
Date of Service: 03/08/24 Subjective awake and laying flat in bed CT chest today ROS 10 point ROS as noted above, otherwise negative Physical Exam General: AAOx3, NAD HEENT: Atraumatic, Normocephalic, PERRLA Neck: Supple, 2+ carotid pulse no bruit Respiratory: Clear to auscultation bilaterally, Normal air movement, 2LNC Cardiovascular: Normal pulses, RRR, Normal S1 S2 Capillary refill: <2 Seconds Gastrointestinal: Normal bowel sounds, Hypoactive, Soft and benign on palpation Musculoskeletal: No contractures Integumentary: No rashes Vitals Reviewed Problem list Acute hypoxic respiratory failure 2/2 CHF exacerbation Bilateral pleural effusions Hx CAD/RI with stents Diabetes mellitus RANDY Hx HTN/HLD History of gout History of OA HX spinal hematoma affecting left lower extremity (Sep 2023) Assessment and Plan Acute hypoxic respiratory failure 2/2 CHF exacerbation Bilateral Pleural Effusions Hx CAD/RI with stents NSTEMI likely -troponin 56.5/63.7/44.2 -Lasix BID -Strict I and O -daily weight -reports ECHO and stress test performed at Dr. Horner's office -Continue home medications -Oxygen supplementation -Dr. Horner consulted -CT chest reports "Moderate bilateral pleural effusions with atelectasis in both posterior lung bases. Cholelithiasis." Diabetes mellitus -reports treatment stopped by PCP -serum glucose 128 -A1C pending -Accu-Chek with sliding scale insulin RANDY -BUN/creatinine 38/2.16 -Consult Dr. Barrett for diuresing Hx HTN/HLD History of gout History of OA HX spinal hematoma affecting left lower extremity (Sep 2023) -Supportive care -Can walk with a walker -Continue home medications when available -Added aldactone DVT ppx heparin Full code LOS 2 days
--- NOTE | 2024-03-08 17:46 | CON ---
Date of Consultation: 03/08/2024 Reason For Consultation: Congestive heart failure. History Of Present Illness: This is an 84-year-old male, history of coronary artery disease, dyslipi demia, hypertension, diabetes, and chronic kidney disease, status post PCI of the RCA. Recent stress test was abnormal at the office, presented with shortness of breath, lower extremity edema, no ortho pnea. Found to have significant fluid overload condition, started on Lasix and he is already feeling much better. Denies having any active chest pain. No nausea, vomiting, or diarrhea. Past Medical History: As outlined above in the HPI. Medications: Refer to reconciliation sheet for detailed list. Allergies: HE IS ALLERGIC TO IODINE. Family History: No premature coronary artery disease or cancer. Social History: He does not smoke or drink. Does not use any drugs. Review of Systems: All systems were reviewed and they were negative except as mentioned in the HPI. Physical Examination: Vital Signs: Reviewed. Head and Neck: Pupils are equal, reactive to light. Intact eye movements. No JVD. No cervical lym phadenopathy. Neck is supple. Thyroid is not enlarged. Lungs: Clear to auscultation bilaterally. No rhonchi, wheezing, or crackles. No accessory muscle u se. Heart: Regular rate and rhythm. No extra sounds. Abdomen: Soft, nontender. Bowel sounds positive. No organomegaly. No masses or hernia. No rigidi ty or rebound. Extremities: No edema, clubbing, or cyanosis. Intact pulses. Skin: No rash. No nodule. Neurologic: Alert, awake, oriented x3. No acute focal deficits appreciated. Investigations: Cardiac enzymes are negative. BUN is 38, creatinine is 2.16, down from 2.28. Assessment And Recommendations: 1.Acute on chronic diastolic heart failure exacerbation, improved nicely with diuretics. Continue I V Lasix one more day and switch to oral by tomorrow and plan for a release by tomorrow. 2.Coronary artery disease with abnormal stress test recently. No active chest pain. He is schedule d for outpatient heart catheterization and we will keep it at such, which is he is scheduled in 2 wee ks from now. 3.Acute on chronic renal failure due to elevated central venous pressure and improved with diuresis. Continue to monitor. SR/MODL Voice ID: [id number] Report ID: [id number]
--- NOTE | 2024-03-08 18:01 | CON ---
Date of Consultation: 03/08/2024 Reason For Consultation: Elevated BUN and creatinine, fluid management. 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 The patient had to be started on dialysis, then weaned from dialysis. Last dialysis was January 19, 2024. The patient apparently was in his regular state of health. Patient developed some shortness of breath. A visit with his stair builder found low blood pressure. For that reason, he was admitted to the hospital. Upon arrival to the hospital, patient's saturation was down to the 70. Patient admitted. A few weeks ago developed summer bronchitis with cough and hemoptysis, treated, recovered. The patient denied any chest pain. The patient not on any diuresis. Past Medical History: Includes: 1. Hypertension. 2. Gout. 3. Diabetes complicated with neuropathy and nephropathy, no retinopathy. 4. Hyperlipidemia. 5. Congestive heart failure. 6. CAD. Past Surgical History: Include: 1. AV fistula. 2. PermCath placement and removal. Home Medications: Include amlodipine, Zetia, glimepiride, Plavix, carvedilol, ferrous sulfate, amiodarone, atorvastatin, amlodipine, folic acid, levothyroxine, and pantoprazole. Social History: Denied smoking. Denied drinking. Denied drugs abuse. Lives with family. Review of Systems: Head and Neck: No red eye. No ear pain. GI: No nausea. No vomiting. : No polyuria. No dysuria. No hematuria. GEAR HOBBER: Not applicable. Respiratory: Has cough. Has sputum. Has shortness of breath. Cardiovascular: No chest pain. Endocrine: No polydipsia. Skin: No rash. Neuro: Has neuropathy. Musculoskeletal: Generalized fatigue. Physical Examination: General: When I saw the patient, patient lying in bed, comfortable. Vital Signs: Blood pressure 160/61, pulse of 57, afebrile. Chest: Crackles on the right base. Heart: S1, S2. Systolic murmur. Abdomen: Soft, nontender. Extremity: No edema. Neurologic: Alert. No focality. Laboratory Data: WBC 6.1, hemoglobin 9.1, sodium 142, potassium 3.6, bicarb 20, BUN 38, creatinine 2.1, calcium 8.1, phosphorus 3.9, magnesium 1.7. TSH 5.2. Urinalysis pending. Chest x-ray showing infiltration on the right base. Current Medications: The patient on in the hospital include spironolactone, Zetia, carvedilol, atorvastatin, amlodipine, amiodarone, Lasix b.i.d., levothyroxine. Assessment And Plan: 1. Acute kidney injury on chronic kidney disease, looked to me to slightly on the wet side. I agree with current dose of Lasix and we will monitor. We will send for basic workup. 2. Hypertension, controlled, not optimal. We will utilize the blood pressure for more diuresis. 3. Chronic kidney disease, stage 4, secondary to diabetes nephropathy, cardiorenal with overvolume with acute kidney injury. As above. 4. Shortness of breath, possible secondary to overvolume, to rule out pneumonia, given the type of infiltration and the history of bronchitis, I am going to continue diuresis. We will get CT noncontrast and we will follow up. 5. Diabetes, as by Primary. Time spent examining the patient [id number], reviewing data, lab and radiology, placing order, discussing the case with the patient, discussing the case with the tractor driver teamster including hospitalist and nursing staff with the dialysis nurse more than 75 minutes ADIEL Voice ID: [id number] Report ID: [id number] MAME
[2024-03-08] MEDS: HEPARIN 5000 UNIT/ML 1 ML VIAL SQ SCH (20:55)
[2024-03-09 09:11] LABS: Absolute Basophils 0.1 K/uL (0-0.5); Absolute Eosinophils 0.2 K/uL (0-0.5); Absolute Lymphocytes (CBC) 1.2 K/uL (0.7-4.9); Absolute Monocytes 0.8 K/uL (0.1-1.3); Eosinophils % 2.9 % (0-4.4); Hematocrit 31.2 % (39.6-49.0); Hemoglobin 10.6 g/dL (13.6-17.9); Lymphocytes % 16.7 % (15.3-44.8); MCH 32.1 pg (27.0-35.0); MCHC 33.9 g/dL (32.0-36.0); MCV 94.9 fL (80-100); MPV 8.9 fL (7.6-11.3); Monocytes % 10.7 % (3.3-12.3); Neutrophils % 68.7 % (41.7-73.7); Platelets 158 thou/uL (152-406); RBC Red Blood Cell Count 3.29 M/uL (4.33-5.43); Red Cell Distribution Width 15.9 % (12.1-15.2)
[2024-03-09 09:22] LABS: Anion Gap 8.9 mEq/L (5.0-15.0); Magnesium 1.7 mg/dL (1.6-2.4); Phosphorus 3.9 mg/dL (2.5-4.9); Potassium 3.9 mEq/L (3.5-5.1)
--- NOTE | 2024-03-09 10:08 | P.PN ---
Date of Service: 03/09/24 Subjective Awake sitting up in bed and on room air Ambulating independent Breathing much better, no new complaint ROS 10 point ROS as noted above, otherwise negative Physical Exam General: AAOx3, NAD, ambulating independently HEENT: Atraumatic, Normocephalic, PERRLA Neck: Supple, 2+ carotid pulse no bruit Respiratory: Clear to auscultation bilaterally, Normal air movement, RA Cardiovascular: Regular rate and rhythm, Normal S1 S2, edema improved Capillary refill: <2 Seconds Gastrointestinal: Normal bowel sounds, Hypoactive, Soft and benign on palpation Musculoskeletal: No contractures, 2+ peripheral pulses Integumentary: No rashes Vitals Reviewed Problem list Acute hypoxic respiratory failure 2/2 CHF exacerbation Bilateral pleural effusions Hx CAD/[place] with stents Diabetes mellitus RANDY Hx HTN/HLD History of gout History of OA HX spinal hematoma affecting left lower extremity (Sep 2023) Assessment and Plan Acute hypoxic respiratory failure 2/2 CHF exacerbation Bilateral Pleural Effusions Hx CAD/[place] with stents NSTEMI likely -troponin 56.5/63.7/44.2 -Lasix daily, PO tomorrow -Strict I and O -daily weight -reports ECHO and stress test performed at Dr. Horner's office -Continue home medications -Oxygen supplementation, on RA -Dr. Horner consulted -CT chest reports "Moderate bilateral pleural effusions with atelectasis in both posterior lung bases. Cholelithiasis." Diabetes mellitus -reports treatment stopped by PCP -serum glucose 169 -A1C pending -Accu-Chek with sliding scale insulin RANDY -BUN/creatinine 45/2.56, GFR 24 -Consult Dr. Barrett for diuresing -lasix decreased to daily and re-evaluate tomorrow Hx HTN/HLD History of gout History of OA HX spinal hematoma affecting left lower extremity (Sep 2023) -Supportive care -Can walk with a walker -Continue home medications -Added aldactone DVT ppx heparin Full code LOS 2 days
--- NOTE | 2024-03-09 16:57 | EKG ---
Test Date: 2024-03-07 Test Time: 13:05:21 Tax Processor: ALAN MEASUREMENT RESULTS: Intervals: Rate: 63 OR: QRSD: 102 QT: 452 QTc: 462 [place]: P: OR: QRS: 50 T: 86 INTERPRETIVE STATEMENTS: Junctional rhythm Nonspecific T wave abnormality Prolonged QT Abnormal ECG Compared to ECG 10/03/2023 18:10:12 Junctional rhythm now present T-wave abnormality now present Prolonged QT interval now present Sinus rhythm no longer present Fusion complex(es) no longer present Ventricular premature complex(es) no longer present First degree AV block no longer present Electronically Signed On 03-09-24 16:50:26 CDT by Dequan Horner
--- NOTE | 2024-03-09 20:34 | PN ---
Date of Progress Note: 03/09/2024 Subjective: Seen by bedside, is doing clinically much better; however, his creatinine went up signif icantly. Review of Systems: No chest pain, shortness of breath, orthopnea, cough. No nausea, vomiting, diarrhea. All other syst ems reviewed, they were negative. Objective: Vital signs: Reviewed. Head and Neck: Pupils are equal, reactive to light. Intact eye movements. No JVD. No cervical lym phadenopathy. Neck supple. Thyroid is not enlarged. Lungs: Clear to auscultation bilaterally. No rhonchi, rales, or crackles. No accessory muscle use. Heart: Regular rate and rhythm. No extra sounds. Abdomen: Soft, nontender. Bowel sounds positive. No organomegaly. No masses or hernia. No rigidi ty or rebound. Extremities: No clubbing, cyanosis. Intact pulses. Skin: No rash. No nodules. Neuro: Alert, awake, and oriented x3. No acute focal deficits appreciated. Investigations: Labs reviewed. Assessment/recommendations: 1.Acute on chronic diastolic heart failure exacerbation. He is euvolemic now. Creatinine went up. Discontinue all diuretics. Re-evaluate labs in the morning. 2.Coronary artery disease. Plan for outpatient catheterization as scheduled. No active symptoms no w. 3.Acute on chronic renal failure and it is getting worse. Discontinue diuretics and reassess his labs tomorrow and appreciate Nephrology input. /ISABELLE Voice ID: [id number] Report ID: [id number]
--- NOTE | 2024-03-09 22:30 | PN ---
Subjective: The patient feels better. He is not requiring oxygen. Chest is clear to auscultation. Creatinine up to 2.5. Lasix is currently on hold. Objective: Vital Signs: Temperature 98.4, pulse rate 65, blood pressure 168/65. General: Awake and alert, not in distress. Neck: Supple. No elevated JVD. Heart: Regular rate and rhythm. Normal S1, S2. Chest: Clear to auscultation bilaterally. No rales or wheezes. Abdomen: Soft, nontender. Extremities: Mild left leg swelling. Medications: Include amiodarone, amlodipine, Coreg, aspirin, Plavix, ezetimibe, insulin, Synthroid. Assessment And Plan: 1.Acute on chronic kidney disease. Patient's baseline creatinine is about 2.2. Current creatinine is not elevated, possibly due to overdiuresis. Lasix is on hold. To resume Lasix tomorrow. Renal d ose medication. Avoid NSAID and contrast. The patient can be discharged tomorrow from Nephrology po int of view. Creatinine remains stable. 2.Hypertension. Blood pressure is elevated. Increase his amlodipine. 3.Shortness of breath. Currently, Lasix on hold. Resume Lasix after discharge tomorrow. 4.Diabetes mellitus. Continue sliding scale insulin. 5.Atrial fibrillation, currently rate controlled. Patient is on carvedilol. 6.Hypoxic respiratory failure due to congestive heart failure exacerbation, diuretic as above. Thanks for allowing me to participate in patient's care. Total time spent 55 minute including documentation, reviewing labs, and discussing with the patient, the at the bedside. KACY Voice ID: [id number] Report ID: [id number]
[2024-03-10 02:57] LABS: Absolute Basophils 0.1 K/uL (0-0.5); Absolute Eosinophils 0.2 K/uL (0-0.5); Absolute Lymphocytes (CBC) 1.2 K/uL (0.7-4.9); Absolute Monocytes 0.9 K/uL (0.1-1.3); Absolute Neutrophil 5.1 K/uL (1.8-8.0); Eosinophils % 2.8 % (0-4.4); Hematocrit 28.8 % (39.6-49.0); Hemoglobin 9.6 g/dL (13.6-17.9); Lymphocytes % 16.2 % (15.3-44.8); MCH 31.8 pg (27.0-35.0); MCHC 33.5 g/dL (32.0-36.0); MCV 94.9 fL (80-100); MPV 9.4 fL (7.6-11.3); Monocytes % 12.5 % (3.3-12.3); Neutrophils % 67.5 % (41.7-73.7); Platelets 128 thou/uL (152-406); RBC Red Blood Cell Count 3.03 M/uL (4.33-5.43); Red Cell Distribution Width 15.8 % (12.1-15.2)
[2024-03-10 03:13] LABS: Magnesium 1.6 mg/dL (1.6-2.4); Phosphorus 4.4 mg/dL (2.5-4.9)
[2024-03-10 03:26] VITALS: O2SAT 96
[2024-03-10 08:37] VITALS: BP 163/74; TEMP 97.4
[2024-03-10] MEDS ORDERED: FUROSEMIDE 40 MG/4 ML VIAL IV SCH (09:00)
[2024-03-10] MEDS ORDERED: FUROSEMIDE 40 MG TABLET PO SCH (09:00)
[2024-03-10] MEDS: AMLODIPINE 10 MG TAB PO SCH (09:31)
[2024-03-10] MEDS: MAGNESIUM SULFATE 1 gm IVPB 1 GM/100 ML BAG IV ONE (09:32)
--- NOTE | 2024-03-10 11:58 | P.DS ---
Admission Date: 03/08/24 Discharge Date: 03/10/24 Disposition: ROUTINE DISCHARGE Discharge Condition: FAIR Reason for Admission: acute hypoxic respiratory failure Brief History of Present Illness: Diagnosis Acute hypoxic respiratory failure 2/2 CHF exacerbation Bilateral pleural effusions Hx CAD/[place] with stents Diabetes mellitus RANDY Hx HTN/HLD History of gout History of OA HX spinal hematoma affecting left lower extremity (Sep 2023) HPI 03/08/24 Rojas Gutierres is an 84 year old male with Pmhx HTN, HLD, CAD with stents, [place], Diabetes mellitus, and renal disease who presents to the ED with chief complaint of shortness of breath that has worsened this morning. He reports feeling out of breath while tieing his shoe but didn't think anything about it til this morning when he felt worse. He reports EMS staing his oxygen level was in the 70s. He sees Dr. Horner and has an ECHO/stress test at his office last week. Of note, he was in the ED and was shipped to [facility] for a hematoma in his back. Since then he has had therapy to help strengthen his left leg. Initial vitals: BP 181 / 74; Pulse 80; Resp 20; Temp 97.7(O); Pulse Ox 96% on 3 lpm NC Laboratory evaluation H&H 10.7/32, platelets 174, left shift neutrophils 82.6, troponin 44.1, BNP 17,329 BUN/creatinine 40/2.28, GFR 27. Chest xray reports "Small to moderate bilateral pleural effusions with bibasilar atelectasis. Mild bilateral additional pulmonary opacities. Heart is moderately enlarged." Rojas will be admitted to hospitalist service for further evaluation and treatment of Acute hypoxic respiratory failure 2/2 CHF exacerbation. Hospital Course: Rojas Gutierres is a pleasant 84 year old male with a past medical history significant for HTN, HLD, CAD with stents, [place], Diabetes mellitus, and renal disease who was admitted to the [facility] on 03/07/24 for feeling out of breath. Rojas Gutierres presented to the ED short of breath. He has tolerated diuresis with lasix and will continue with lasix at home. Dr. Barrett will make further adjustments to your medications. Please follow up with Dr. Barrett and Dr. Horner. Rojas is tolerating p.o. diet, ambulating independently with his walker, on room air with satisfactory oxygenation, and hemodynamically stable for discharge On 03/10/24, Rojas was seen on morning rounds and deemed medically stable for discharge. Rojas was discharged with instructions to schedule follow-up appointments with Dr. Barrett, Dr Horner, and PCP. Rojas was provided prescriptions for Lasix, Farxiga, and Plavix. The patient and family members were given the opportunity to ask questions and reported no further questions. Furthermore, all questions were answered to the best of my ability. A copy of this discharge summary will be sent to the above providers to facilitate continuity of care. Physical Exam General: Alert and oriented x3, conversing well, NAD, ambulating independently HEENT: Atraumatic, Normocephalic, PERRLA Neck: Supple, 2+ carotid pulse no bruit Respiratory: Clear to auscultation bilaterally, Normal air movement, RA Cardiovascular: RRR, Normal S1 S2 present, no edema Capillary refill: <2 Seconds Gastrointestinal: normal active bowel sounds, Soft and benign on palpation, nontender Musculoskeletal: No contractures, 2+ peripheral pulses Integumentary: No rashes Vital Signs/Physical Exam: Temp Pulse Resp BP Pulse Ox 97.4 F 58 16 163/74 H 93 03/10/24 08:00 03/10/24 08:00 03/10/24 08:00 03/10/24 09:31 03/10/24 08:00 Laboratory Data at Discharge: WBC 7.50 thou/uL (4.3-10.9) 03/10/24 02:26 Hgb 9.6 g/dL (13.6-17.9) L D 03/10/24 02:26 Hct 28.8 % (39.6-49.0) L 03/10/24 02:26 Plt Count 128 thou/uL (152-406) L 03/10/24 02:26 PT 12.6 SECONDS (9.5-12.5) H 03/07/24 13:54 INR 1.15 03/07/24 13:54 Sodium 142 mEq/L (136-145) 03/10/24 02:26 Potassium 4.0 mEq/L (3.5-5.1) 03/10/24 02:26 BUN 51 mg/dL (7-18) H 03/10/24 02:26 Creatinine 2.63 mg/dL (0.70-1.30) H 03/10/24 02:26 Glucose 152 mg/dL (74-106) H 03/10/24 02:26 Phosphorus 4.4 mg/dL (2.5-4.9) 03/10/24 02:26 Magnesium 1.6 mg/dL (1.6-2.4) 03/10/24 02:26 Total Bilirubin 0.6 mg/dL (0.2-1.0) 03/07/24 13:54 AST 26 U/L (15-37) 03/07/24 13:54 ALT 38 U/L (16-61) 03/07/24 13:54 Alkaline Phosphatase 103 U/L (45-117) 03/07/24 13:54 Triglycerides 77 mg/dL (<150) 03/08/24 02:45 Cholesterol 118 mg/dL (<200) 03/08/24 02:45 HDL Cholesterol 54 mg/dL (40-60) 03/08/24 02:45 Cholesterol/HDL Ratio 2.19 03/08/24 02:45 Home Medications: Amiodarone HCl [Pacerone] 200 mg PO DAILY 03/08/24 Amlodipine [Norvasc*] 5 mg PO DAILY 03/08/24 Atorvastatin Calcium 40 mg PO DAILY 03/08/24 Dapagliflozin Propanediol [Farxiga] 5 mg PO DAILY 30 Days #30 tab 03/08/24 Docusate Sodium [Colace] 100 mg PO DAILY 03/08/24 Ezetimibe 10 mg PO DAILY 03/08/24 Ferrous Sulfate 65 mg PO DAILY 03/08/24 Folic Acid/Vit B Complex and C [Erma-Amadou Tablet] 0.8 mg PO DAILY 03/08/24 Levothyroxine [Synthroid*] 25 mcg PO DAILY 03/08/24 Metoprolol Succinate [Toprol Xl] 25 mg PO DAILY 03/08/24 Pantoprazole [Protonix Tab*] 40 mg PO DAILY 03/08/24 Clopidogrel Bisulfate [Plavix*] 75 mg PO DAILY 30 Days #30 tab 03/09/24 Furosemide [Lasix] 40 mg PO DAILY 30 Days #30 tab 03/09/24 New Medications: Dapagliflozin Propanediol [Farxiga] 5 mg PO DAILY 30 Days #30 tab Furosemide [Lasix] 40 mg PO DAILY 30 Days #30 tab Clopidogrel Bisulfate [Plavix*] 75 mg PO DAILY 30 Days #30 tab Physician Discharge Instructions: Rojas Gutierres presented to the ED short of breath. He has tolerated diuresis with lasix and will continue with lasix at home. Dr. Barrett will make further adjustments to your medications. Please follow up with Dr. Barrett and Dr. Horner. 1. Please call and schedule a follow-up appointment with your PCP in 3-5 days - Please follow-up with your PCP for medication refills/adjustments 2. Please call and schedule a follow-up appointment with Dr. Barrett in 3-5 days 3. Continue renal diet 4. activity restrictions , fall precautions while using walker 5. Return to the ED if symptoms worsen New medications Farxiga 5 mg p.o. daily Plavix 75 mg p.o. daily Lasix 40 mg p.o. daily x 30 days Diet: Renal Activity: Ad shelbie Followup: Shayy Corey [Primary Care Provider] - Chato Barrett MD [ACTIVE - CAN ADMIT] -
== END 2024-03-10 12:54 | disposition home health service (06) | DRG 189 ==
LOC: ER 12:28 → ERHOLD 16:58 → 2ND 21:31 → OBSVTOIN 03-08 14:15
PROVIDERS: ADMIT Internal Medicine Sleep Medicine; ATTEND Internal Medicine Sleep Medicine
DX: J96.01 Acute respiratory failure with hypoxia (principal); I50.33 Acute on chronic diastolic (congestive) heart failure; I13.0 Hypertensive heart and chronic kidney disease with heart failure and stage 1 through stage 4 chronic kidney disease, or unspecified chronic kidney disease; N17.9 Acute kidney failure, unspecified; N18.4 Chronic kidney disease, stage 4 (severe); E11.22 Type 2 diabetes mellitus with diabetic chronic kidney disease; E11.40 Type 2 diabetes mellitus with diabetic neuropathy, unspecified; I48.91 Unspecified atrial fibrillation; E78.5 Hyperlipidemia, unspecified; M19.90 Unspecified osteoarthritis, unspecified site; M10.9 Gout, unspecified; I25.10 Atherosclerotic heart disease of native coronary artery without angina pectoris; I25.2 Old myocardial infarction; Z95.5 Presence of coronary angioplasty implant and graft; Z79.84 Long term (current) use of oral hypoglycemic drugs; Z79.02 Long term (current) use of antithrombotics/antiplatelets; Z91.013 Allergy to seafood; Z79.899 Other long term (current) drug therapy; Z91.048 Other nonmedicinal substance allergy status
CPT/HCPCS: 36415; 71045; 71250; 80048; 80061; 80076; 82805; 82947; 83036; 83735; 83880; 84100; 84439; 84443; 84484; 85025; 85610; 93005; 96374; 99285; G0378; J1644; J1940; J3475

== ENCOUNTER 2024-03-23 10:30 | Day surgery (SDC) | payer OTHER, MEDICARE ==
[2024-03-19 10:42] LABS: PT Prothrombin Time 11.4 SECONDS (9.5-12.5); Protime INR 1.04
--- NOTE | 2024-03-19 12:02 | EKG ---
Test Date: 2024-03-19 Test Time: 09:51:22 Children'S Entertainer: ALEC MEASUREMENT RESULTS: Intervals: Rate: 48 [place]: QRSD: 98 QT: 510 QTc: 455 [place]: P: RI: QRS: 19 T: 78 INTERPRETIVE STATEMENTS: Sinus Braducardia Nonspecific T wave abnormality Abnormal ECG Compared to ECG 03/07/2024 13:05:21 Prolonged QT interval no longer present T-wave abnormality still present Electronically Signed On 03-19-24 12:01:59 CDT by Franklin Ladd
--- NOTE | 2024-03-20 15:10 | EKG ---
Test Date: 2024-03-19 Test Time: 09:53:35 Subway Conductor: ALEC MEASUREMENT RESULTS: Intervals: Rate: 48 [place]: 290 QRSD: 98 QT: 482 QTc: 430 [place]: P: 99 [place]: 290 QRS: 21 T: 118 INTERPRETIVE STATEMENTS: Marked sinus bradycardia with 1st degree AV block Possible Anterior infarct, age undetermined ST & T wave abnormality, consider lateral ischemia Abnormal ECG Compared to ECG 03/19/2024 09:51:22 First degree AV block now present Myocardial infarct finding now present ST (T wave) deviation now present Possible ischemia now present T-wave abnormality no longer present Electronically Signed On 03-20-24 15:06:33 CDT by Dequan Horner
[2024-03-23] MEDS ORDERED: NA CHLORIDE 0.9% 500 ML ONE (10:52)
[2024-03-23] MEDS ORDERED: HEPA 1000U/500MLS 2,000 UNIT/1,000 ML BAG IV ONE (10:53)
[2024-03-23] MEDS ORDERED: LIDOCAINE 1% 20 ML MDV ONE (10:54)
[2024-03-23] MEDS ORDERED: FENTANYL CITR 100 MCG/2 ML ONE (10:54)
[2024-03-23] MEDS ORDERED: MIDAZOLAM HCL 2 MG/2 ML INJ ONE (10:54)
[2024-03-23] MEDS ORDERED: NITROGLYCERIN/D5W 50 MG/250 ML BTL IV ONE (10:54)
[2024-03-23] MEDS ORDERED: VERAPAMIL HCL 10 MG/4 ML VIAL IV ONE (10:54)
[2024-03-23] MEDS ORDERED: CLOPIDOGREL 75 MG TABLET ONE (10:55)
[2024-03-23] MEDS ORDERED: TICAGRELOR 90 MG TABLET PO ONE (10:55)
[2024-03-23] MEDS ORDERED: HEPARIN 5000 UNIT/ML 1 ML VIAL ONE (10:55)
[2024-03-23] MEDS ORDERED: HEPARIN 10,000 UNIT/10 ML VIAL IV ONE (10:55)
[2024-03-23] MEDS ORDERED: ASPIRIN 325 MG TAB ONE (10:55)
[2024-03-23] MEDS ORDERED: METHYLPREDNISOLONE 125 MG INJ ONE (12:37)
[2024-03-23] MEDS ORDERED: DIPHENHYDRAMINE 50 MG/ML VIAL ONE (12:37)
[2024-03-23 14:25] VITALS: TEMP 97.4
[2024-03-23 16:04] VITALS: BP 151/66; O2SAT 97
--- NOTE | 2024-03-24 00:05 | OP ---
Date of Procedure: 03/23/2024 Surgeon: ANTONIO CHANG Procedures Performed: 1.Selective coronary angiogram. 2.Left heart catheterization. 3.Right heart catheterization. Indications: 1.Aortic valve stenosis. 2.Coronary artery disease. 3.Abnormal stress test. Access: 1.Right radial artery, 6-Gabonese, closed with TR band. 2.Right IJ, 7-Gabonese, closed with manual pressure. Complications: None. Bleeding: Less than 50 mL. Total Sedation Time: 50 minutes, used fentanyl and Versed. Description Of Procedure: After risks, benefits, and alternatives were explained, the patient agreed to procedure and signed informed consent. The patient was brought into the cardiac catheterization laboratory, prepped and draped in usual sterile fashion. Then, I accessed right radial artery using pediatric micropuncture kit. Placed a 6-Gabonese [place] sheath and accessed right IJ using micropunc ture kit and ultrasound guidance, and placed 7-Gabonese [place] sheath. Took a 7-Gabonese balloon-tippe d [place] catheter through the IJ access into the right atrium, right ventricle, pulmonary artery, and w edge and obtained waveform and pressure. Then performed thermodilution cardiac output and removed th e [place]. Then took 5-Gabonese [place] 4 catheter into the aortic root over J-wire, engaged left main, too k standard views and engaged RCA, took standard views and then across the aortic valve and sent the L [place] catheter into the ventricle and obtained a simultaneous pressure in the aorta and the LV, and pullback did not record internal gradient, and then removed the catheter and the sheath, and placed TR band with good hemostasis. Removed the sheath of the IJ and placed manual pressure for closure wi th good hemostasis. Findings: Coronary angiogram: 1.Left main: Distal 20%. 2.LAD: Proximal 70% to 80%, small vessel. Distal LAD is normal. 3.Ramus intermedius: Very large with widely patent stent. 4.Left circumflex is normal. 5.RCA: Moderate-sized vessel with 50% stenosis proximally and a widely patent stent after that. 6.LVEDP is elevated at 15 mmHg. The right heart numbers: RA pressure is 3. RV pressure is 51/6, mean of 12. The PA pressure was 51 /19, mean of 32. Pulmonary wedge pressure was 23. LVEDP was 15 to 20. Cardiac output averages 6.5 L/minute. Mean gradient across the aortic valve is 30 mmHg. Valve area is 1.45 square cm. Conclusion: 1.Moderate aortic valve stenosis. 2.Severe proximal LAD stenosis. We will plan for PCI in about 6 weeks as he has chronic kidney fail ure, creatinine is 2.4 and we will do it in [place]. 3.As far as the aortic valve stenosis, we will plan for repeating echo in 6 months. SR/MODL Voice ID: [id number] Report ID: [id number]
== END 2024-03-23 15:58 | disposition home or self-care (01) ==
LOC: CCL 10:30
PROVIDERS: ATTEND Internal Medicine
DX: I25.10 Atherosclerotic heart disease of native coronary artery without angina pectoris (principal); I35.0 Nonrheumatic aortic (valve) stenosis; I12.9 Hypertensive chronic kidney disease with stage 1 through stage 4 chronic kidney disease, or unspecified chronic kidney disease; E11.22 Type 2 diabetes mellitus with diabetic chronic kidney disease; N18.9 Chronic kidney disease, unspecified; E78.5 Hyperlipidemia, unspecified; I27.20 Pulmonary hypertension, unspecified; M10.9 Gout, unspecified; M19.90 Unspecified osteoarthritis, unspecified site; Z95.5 Presence of coronary angioplasty implant and graft; Z79.84 Long term (current) use of oral hypoglycemic drugs; Z91.013 Allergy to seafood
CPT/HCPCS: 93005 ×2; 36415; 85610; 82947; 85730; 93460; 76937; C1893; Q9966; J1644; J2001; J2250; J3010; J2919; J7040; 99152; 99153; J1200

== ENCOUNTER 2025-05-26 08:55 | Inpatient (IN) | payer OTHER, MEDICARE ==
--- OUTSIDE RECORDS SUMMARY | 2025-05-26 08:58 | XMS REPORT | Continuity of Care Document ---
Author Name Unknown Address [address] [facility] [place] [address] [facility] [address] 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 Role Phone Pcp, Patient Does Not Have A Primary Care Physic niru ERVIN SINGH Attending Clinician Ariella vailaErvin Braswell MD Attending Clinician Doctor Unassigned, Sunray Attending Clinician U Smooth Thayer MD Attending Clinician [phone] SMOOTH HOBBS Attending Clinician Unavailable Dequan Horner Attending Clinician Unavailable RADIOLOGY Attending Clinician Unavailable Radiology Attending Clinician Unavailable Radha Layne Attending Clinician RADHA MURPHY Attending Clinician UnavailNATALIA Hayes Attending Clinician Unavailable JUAN R PATTON Attending Clinician Unavailable Ervin Singh MD Attending Clinician Doctor Unassigned, Sunray Attending Clinician U SMOOTH Thayer Admitting Clinician Unavailable Physician, No Primary or Family Admitting Clinic niru Unavailable RADHA MURPHY Admitting Clinician Unavaila PAYAL Patel Admitting Clinician Unavailable ERVIN SINGH Admitting Clinician Ariella vailable Payers Payer Name Policy Type Policy Number Effective Date Expirati on Date Source MEDICARE PART A \T\ [id number] 2003 00:00:00 [facility] MEDICARE SUPPLEMENT [id number] 2022 00:00:00 [facility] MEDICARE SUPPLEMENT [id number] 2021 00:00:00 Allergies, Adverse Reactions, Alerts Allergy Name Allergy Type Status Severity Reaction(s) Onset Date Inactive Date Treating Clinician Comments Source IODINE DRUG INGREDI Active Hives 01-29 00:00: 00 [facility] Iodine Propensi ty to adverse reaction s Active Hives 01-29 00:00: 00 [facility] iodine DA Active [place] HIVES 04-30 00:00: 00 [facility] shellfis h derived FA Active SC HIVES 04-30 00:00: 00 [facility] NO KNOWN ALLERGIE S Drug Class Active [facility] Social History Social Habit Start Date Stop Date Quantity Comments Source History of tobacco use Passive smoker [facility] of Social function 2025-02-12 00:00:00 2025-02-12 00:00:00 [facility] Tobacco use and exposure 2024-01-31 00:00:00 2024-01-31 00:00:00 Smokeless tobacco non-user [facility] Exposure to SARS-CoV-2 (event) 2023-01-22 00:00:00 2023-02-01 09:31:00 Not sure [facility] Sex assigned at 1940 00:00:00 1940 00:00:00 [facility] Smoking Status Start Date Stop Date Source Tobacco smoking consumption unknown [facility] Ex-smoker 2024-01-31 00:00:00 2024-01-31 00:00:00 [facility] Medications Ordered Medication Name Filled Medication Name Start Date Stop Date Current Medication? Ordering Clinician Indication Dosage Frequency Signature (SIG) Comments Components Source FARXIGA 5 mg tablet 01-31 02:10: 23 Yes 5mg Take 1 tablet by mouth in the morning. [facility] ferrous sulfate 325 mg (65 mg iron) tablet 01-31 02:10: 23 Yes Take 1 tablet every other day by oral route as directed. [facility] furosemide 40 mg tablet 01-31 02:10: 23 Yes TAKE ONE (1) TABLET(S) BY MOUTH EVERY DAY. [facility] gadobenate dimeglumine (MULTIHANCE -15 mL) injection 0.2 mL/kg 01-17 21:15: 00 01-17 21:03 :00 No [id number] .2mL/kg 0.2 mL/kg, Intravenou s, ONCE, 1 dose, On Tue01/17/25 at 1615, Routine [facility] docusate 100 mg capsule 2023-10 13:04: 07 Yes 100mg Take 1 capsule by mouth in the morning. [facility] calcitrioL 0.25 mcg capsule 2023-10 00:00: 00 Yes .25ug Take 1 capsule by mouth in the morning. [facility] amiodarone 200 mg tablet 01-20 00:00: 00 Yes 200mg Take 1 tablet by mouth in the morning. [facility] metoprolol succinate XL 25 mg 24 hr tablet 01-14 00:00: 00 Yes TAKE ONE (1) TABLET(S) BY MOUTH EVERY DAY. HOLD FOR BLOOD PRESSURE LESS THEN 100 OR HEART RATE LESS THEN 60. [facility] levothyroxi ne 25 mcg tablet 06 00:00: 00 Yes 25ug Take 1 tablet by mouth. [facility] ergocalcife rol, vitamin D2, (VITAMIN D ORAL) 2022-10 10:37: 26 Yes Take by mouth. [facility] atorvastati n 40 mg tablet 2022-10 10:36: 23 Yes 40mg Take 1 tablet by mouth at bedtime. [facility] losartan 25 mg tablet 2023-1 0-13 00:00: 00 Yes TAKE ONE-HALF (1/2) TABLET(S) BY MOUTH ONCE A DAY. [facility] atorvastati n 40 mg tablet 4-11 08:55: 00 Yes 40mg Take 1 tablet by mouth at bedtime. [facility] ferrous gluconate 324 mg (38 mg iron) tablet 3-20 00:00: 00 Yes 324mg Take 1 tablet by mouth every morning. [facility] carvediloL 6.25 mg tablet 2-16 00:00: 00 Yes 6.25mg Take 1 tablet by mouth in the morning and 1 tablet in the evening. [facility] febuxostat 40 mg tablet 2-16 00:00: 00 Yes 40mg Take 1 tablet by mouth as needed. Q AM prn gout [facility] clopidogreL 75 mg tablet 2-15 00:00: 00 Yes 75mg Take 1 tablet by mouth every morning. [facility] glimepiride 1 mg tablet 2-07 00:00: 00 Yes 1mg Take 1 tablet by mouth in the morning and 1 tablet in the evening. [facility] ezetimibe 10 mg tablet 2-06 00:00: 00 Yes 10mg Take 1 tablet by mouth every morning. [facility] pantoprazol e 40 mg EC tablet 2-06 00:00: 00 Yes 40mg Take 1 tablet by mouth in the morning. [facility] hydrALAZINE 25 mg tablet 2-06 00:00: 00 Yes 25mg Take 1 tablet by mouth in the morning and 1 tablet in the evening. [facility] amLODIPine 10 mg tablet 1-16 00:00: 00 Yes 10mg Take 1 tablet by mouth every morning. [facility] Vital Signs Vital Name Observation Time Observation Value Comments Alf lazo Systolic blood pressure 2025-02-12 19:13:00 175 mm[Hg] [facility] Diastolic blood pressure 2025-02-12 19:13:00 55 mm[Hg] [facility] Heart rate 2025-02-12 19:13:00 43 /min [facility] Body temperature 2025-02-12 19:13:00 36.89 Suzanna [facility] Body height 2025-02-12 19:13:00 172.7 cm [facility] Body weight 2025-02-12 19:13:00 69.355 kg [facility] BMI 2025-02-12 19:13:00 23.25 kg/m2 [facility] Oxygen saturation in Arterial blood by Pulse oximetry 2025-02-12 19:13:00 99 /min [facility] Systolic blood pressure 2025-01-29 20:17:00 173 mm[Hg] [facility] Diastolic blood pressure 2025-01-29 20:17:00 59 mm[Hg] [facility] Heart rate 2025-01-29 20:12:00 46 /min [facility] Body height 2025-01-29 20:12:00 172.7 cm [facility] Body weight 2025-01-29 20:12:00 68.493 kg [facility] BMI 2025-01-29 20:12:00 22.96 kg/m2 [facility] Oxygen saturation in Arterial blood by Pulse oximetry 2025-01-29 20:12:00 100 /min [facility] Systolic blood pressure 2024-12-18 18:29:00 139 mm[Hg] [facility] Diastolic blood pressure 2024-12-18 18:29:00 65 mm[Hg] [facility] Heart rate 2024-12-18 18:29:00 50 /min [facility] Body temperature 2024-12-18 18:29:00 36.5 Suzanna [facility] Respiratory rate 2024-12-18 18:29:00 2 /min [facility] Body height 2024-12-18 18:29:00 172.7 cm [facility] Body weight 2024-12-18 18:29:00 68.04 kg [facility] BMI 2024-12-18 18:29:00 22.81 kg/m2 [facility] Oxygen saturation in Arterial blood by Pulse oximetry 2024-12-18 18:29:00 100 /min [facility] Systolic blood pressure 2024-08-14 19:05:00 168 mm[Hg] [facility] Diastolic blood pressure 2024-08-14 19:05:00 66 mm[Hg] [facility] Heart rate 2024-08-14 19:05:00 47 /min nurse and provider notified of HR [facility] Oxygen saturation in Arterial blood by Pulse oximetry 2024-08-14 19:05:00 100 /min [facility] Body temperature 2024-08-14 18:59:00 36.61 Suzanna [facility] Respiratory rate 2024-08-14 18:59:00 20 /min [facility] Body weight 2024-08-14 18:59:00 71.668 kg [facility] BMI 2024-08-14 18:59:00 24.02 kg/m2 [facility] Systolic blood pressure 2024-01-31 15:52:00 168 mm[Hg] [facility] Diastolic blood pressure 2024-01-31 15:52:00 67 mm[Hg] [facility] Heart rate 2024-01-31 15:52:00 51 /min [facility] Body temperature 2024-01-31 15:50:00 35.56 Suzanna [facility] Respiratory rate 2024-01-31 15:50:00 18 /min [facility] Body height 2024-01-31 15:50:00 172.7 cm [facility] Body weight 2024-01-31 15:50:00 76.204 kg [facility] BMI 2024-01-31 15:50:00 25.54 kg/m2 [facility] Oxygen saturation in Arterial blood by Pulse oximetry 2024-01-31 15:50:00 99 /min [facility] Systolic blood pressure 2023-08-03 15:38:00 175 mm[Hg] [facility] Diastolic blood pressure 2023-08-03 15:38:00 66 mm[Hg] [facility] Heart rate 2023-08-03 15:38:00 58 /min [facility] Oxygen saturation in Arterial blood by Pulse oximetry 2023-08-03 15:38:00 99 /min [facility] Body temperature 2023-08-03 15:34:00 36.72 Suzanna [facility] Respiratory rate 2023-08-03 15:34:00 18 /min [facility] Body weight 2023-08-03 15:34:00 78.472 kg [facility] BMI 2023-08-03 15:34:00 25.55 kg/m2 [facility] Systolic blood pressure 2023-02-01 14:23:00 144 mm[Hg] [facility] Diastolic blood pressure 2023-02-01 14:23:00 59 mm[Hg] [facility] Heart rate 2023-02-01 14:23:00 61 /min [facility] Body temperature 2023-02-01 14:23:00 36.56 Suzanna [facility] Body weight 2023-02-01 14:23:00 78.79 kg [facility] BMI 2023-02-01 14:23:00 25.65 kg/m2 [facility] Oxygen saturation in Arterial blood by Pulse oximetry 2023-02-01 14:23:00 98 /min [facility] Systolic blood pressure 2024-12-18 18:29:00 139 mm[Hg] [facility] Diastolic blood pressure 2024-12-18 18:29:00 65 mm[Hg] [facility] Heart rate 2024-12-18 18:29:00 50 /min [facility] Body temperature 2024-12-18 18:29:00 36.5 Suzanna [facility] Respiratory rate 2024-12-18 18:29:00 2 /min [facility] Body height 2024-12-18 18:29:00 172.7 cm [facility] Body weight 2024-12-18 18:29:00 68.04 kg [facility] BMI 2024-12-18 18:29:00 22.81 kg/m2 [facility] Oxygen saturation in Arterial blood by Pulse oximetry 2024-12-18 18:29:00 100 /min [facility] Procedures Procedure Date / Time Performed Performing Clinician Source CT THORAX WO CONTRAST 2025-01-30 18:52:00 Kwesi Hobbs [facility] CT ABDOMEN WO CONTRAST 2024-12-21 20:34:42 Brooklyn Hobbs [facility] POCT URINALYSIS AUTO 2024-12-18 18:40:00 Anjel Kwesivincent [facility] POCT URINALYSIS AUTO 2024-12-18 18:40:00 Brian Hobbs [facility] GIL,POST-VOID RES,US,NON-IMAGING 2024-12-18 00:00:00 Anjel [facility] GIL,POST-VOID RES,US,NON-IMAGING 2024-12-18 00:00:00 Anjel [facility] POCT URINALYSIS AUTO 2024-08-14 [facility]:18[facility],POST-VOID RES,US,NON-IMAGING 2024-08-14 19:17:00 Anjel [facility] US RETROPERITONEAL COMPLETE 2024-05-01 16:58:19 Radha Murphy [facility] GIL,POST-VOID RES,US,NON-IMAGING 2024-01-31 16:04:00 Radha Murphy [facility] POCT URINALYSIS AUTO 2024-01-31 16:03:00 Rogelio Murphy [facility] POCT URINALYSIS AUTO 2023-08-03 15:39:00 Rogelio Murphy [facility] ASSIGNMENT OF BENEFITS 2023-01-18 13:15:03 Docto r Unassigned, Sunray [facility] Encounters Start Date/Time End Date/Time Encounter Type Admission Type Attending [facility] Care Facility Care Department Encounter ID Source 2025-02-12 14:00:00 2025-02-12 15:52:03 Outpatient R ERVIN SINGH [facility] [id number] [facility] 2025-02-12 14:00:00 2025-02-12 15:52:03 Office Visit Ervin Singh [facility] [place] 1.2.840.114 350.1.13.10 4.2.7.2.686 [id number] [facility] 2025-02-12 00:00:00 2025-02-12 13:15:22 Letter (Out) Doctor Unassigned, Sunray Doctor Unassigned, Sunray [facility] ([place]) 1.2.840.114 350.1.13.10 4.2.7.2.686 [id number] [facility] 2025-02-01 00:00:00 2025-02-01 13:57:31 [facility] 1.2.840.114 350.1.13.10 4.2.7.2.686 [id number] [facility] [id number] [facility] 2025-01-30 13:29:16 2025-01-30 23:59:00 Outpatient R ANJEL [facility] RAD [id number] [facility] 2025-01-30 13:29:16 2025-01-30 23:59:00 Hospital Encounter Smooth Hobbs [facility] 1.2.840.114 350.1.13.10 4.2.7.2.686 [id number] [facility] 2025-01-29 15:00:00 2025-01-29 16:01:19 Outpatient R KWESI HOBBSFORMERLY [facility] [id number] [facility] 2025-01-29 15:00:00 2025-01-29 16:01:19 [facility] 1.2.840.114 350.1.13.10 4.2.7.2.686 [id number] [facility] 2025-01-27 00:00:00 2025-01-27 18:23:23 [facility] [place] 1.2.840.114 350.1.13.10 4.2.7.2.686 [id number] [facility] 2025-01-17 14:48:42 2025-01-17 23:59:00 Outpatient R SMOOTH HOBBS [facility] [id number] [facility] 2025-01-17 14:48:42 2025-01-17 23:59:00 Hospital Encounter Smooth Hobbs [facility] 1.2.840.114 350.1.13.10 4.2.7.2.686 [id number] [facility] 2025-01-14 13:00:00 2025-01-14 13:00:00 Outpatient R KWESI HOBBSFORMERLY [facility] [id number] [facility] 2025-01-01 00:00:00 2025-01-01 15:52:[address] [facility] 1.2.840.114 350.1.13.10 4.2.7.2.686 [id number] [facility] 2024-12-21 15:10:03 2024-12-21 23:59:00 Outpatient R KWESI HOBBSFORMERLY [facility] [id number] [facility] 2024-12-21 14:46:47 2024-12-21 23:59:00 Hospital Encounter Smooth Hobbs 1.2.840.1 [id number] 3.104.2.7 .[id number] [facility] 2024-12-21 00:00:00 2024-12-21 00:00:00 Travel 1.2.840.1 [id number] 3.104.2.7 .[id number] .8 1.2.840.114 350.1.13.10 4.2.7.3.698 [id number] [facility] 2024-12-18 13:15:00 2024-12-18 14:34:25 Outpatient R ANJEL [facility] [id number] [facility] 2024-12-18 13:15:00 2024-12-18 14:34:25 Office Visit Smooth Hobbs 1.2.840.1 [id number] 3.104.2.7 .3.769472 [id number] [facility] 2024-12-18 00:00:00 2024-12-18 00:00:00 Travel 1.2.840.1 [id number] 3.104.2.7 .[id number] .8 1.2.840.114 350.1.13.10 4.2.7.3.698 [id number] [facility] 2024-11-13 13:00:00 2024-11-13 13:00:00 Outpatient R ANJEL [facility] [id number] [facility] 2024-09-14 00:00:00 2024-09-14 00:00:00 Outpatient R KWESI HOBBSFORMERLY [facility] [id number] [facility] 2024-08-14 13:00:00 2024-08-14 13:15:00 Office Visit Smooth Hobbs [facility] 1.2.840.114 350.1.13.10 4.2.7.2.686 [id number] [facility] 2024-08-14 13:00:00 2024-08-14 13:00:00 Outpatient R RIGOZENOBIAJulioKWESIFORMERLY [facility] [id number] [facility] 2024-07-31 11:30:00 2024-07-31 11:30:00 Outpatient Amelia SIERRAZENOBIAJulio [facility] [id number] [facility] 2024-05-02 05:28:00 2024-05-02 05:28:00 Outpatient Dequan Rucker [facility] [id number] [facility] 2024-05-01 10:55:43 2024-05-01 23:59:00 Outpatient R RADIOLOGY [facility] [id number] [facility] 2024-05-01 10:55:43 2024-05-01 23:59:00 Hospital Encounter Radiology [facility] 1.284.114 350.1.13.10 4.2.7.2.686 [id number] [facility] 2024-01-31 11:00:00 2024-01-31 11:15:05 [facility] 1..840.114 350.1.13.10 4.2.7.2.686 [id number] [facility] 2024-01-31 11:00:00 2024-01-31 11:15:05 Outpatient R MACIE MURPHYTNEY [facility] [id number] [facility] 2023-10-04 02:15:00 2023-10-22 18:50:00 Inpatient E NATALIA VARELA [facility] [id number] [facility] 2023-10-17 15:30:00 2023-10-17 15:30:00 Outpatient JUAN R PATTON [facility] [id number] [facility] 2023-08-12 00:00:00 2023-08-12 00:00:00 Telephone Macie Murphytney [facility] 1.2.840.114 350.1.13.10 4.2.7.2.686 [id number] [facility] 2023-08-08 15:14:48 2023-08-08 23:59:00 Outpatient R MACIE MURPHYTNEY [facility] [id number] [facility] 2023-08-08 15:14:48 2023-08-08 23:59:00 [facility] 1.2840.114 350.1.13.10 4.2.7.2.686 [id number] [facility] 2023-08-03 10:30:00 2023-08-03 10:58:32 Outpatient [facility] [id number] [facility] 2023-08-03 10:30:00 2023-08-03 10:58:32 Office Visit Radha Murphy [facility] 1.840.114 350.1.13.10 4.2.7.2.686 [id number] [facility] 2023-02-28 13:11:58 2023-02-28 23:59:00 Outpatient R MADELINEERVIN [facility] [id number] [facility] 2023-02-28 13:11:58 2023-02-28 23:59:00 [facility] 1.840.114 350.1.13.10 4.2.7.2.686 [id number] [facility] 2023-02-01 09:45:00 2023-02-01 10:15:00 [facility] 1.840.114 350.1.13.10 4.2.7.2.686 [id number] [facility] 2023-02-01 09:45:00 2023-02-01 09:45:00 Outpatient R ERVIN SINGH [facility] [id number] [facility] 2023-01-18 08:30:00 2023-01-18 09:06:56 Outpatient R SMOOTH HOBBS [facility] [id number] [facility] 2023-01-18 00:00:00 2023-01-18 00:00:00 Orders Only Doctor Unassigned, Sunray [facility] 1.84.114 350.1.13.10 4.2.7.2.686 [id number] [facility] Results Test Description Test Time Test Comments Results Result Comments Source CT Thorax wo contrast 2025-01 19:09:1 5 HISTORY: History of RCC, assess for chest metastasis. TECHNIQUE: 64-Multidetector noncontrast enhanced CT of the chest isobtained. FINDINGS: No focal lesions detected in the thyroid gland. Trachea andcentral bronchial airways appear normal. No pneumothorax or pneumomediastinum. No pleural effusion or pericardialeffusion. Cardiomegaly noted along with advanced triple-vessel coronaryatherosclerosis with stents in LCx and right coronary arteries. A small sliding hiatal hernia suspected. Visualized upper abdominal organsshowed gallstones without any evidence of acute cholecystitis, known solidmass in the left kidney. 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 Minimalfibrosis is noted in the medial right lower lung. Fibrosis also noted inthe right middle lobe. Pleural base nodularity seen on right side (series #9, image #31, 36, 50,64, 131) and in the left thorax (image #139). A very small calcified granuloma noted in the left lung (series #9, image#166), in the right lung (series #9, image #95, #107). Noncalcified 2 to 3mm nodules are seen in the left lung (series #9, image #161, #176). CONCLUSIONS: 1. No highly suspicious CT findings of lung metastasis.2. Nodular pleural thickening, small calcified granulomas in both lungs in2 noncalcified nodules in left lower lung are likely benign but will bemonitored in future follow-up studies.3. Cardiomegaly, advanced coronary atherosclerosis with coronary stenting.4. Gallstones.5. Left kidney tumor. A solid noncalcified pulmonary nodule is noted, measuring 8mm or greater.Due to the size and characteristics of the nodule, this case will bereferred to the pulmonary consult service. Recommendations for Follow-up and Management of Indeterminate Lung Nodules. Nodule ? ? Diameter <= 6 mm ? LOW RISK Patient ?: No follow up needed. ? ? HIGH RISK Patient : Follow up CT at 12 months. ? If unchanged, no additional follow up. >6-8 mm ? Follow up CT at 6, 12 and 24 months. ? If no change, no further follow up. > 8 mm ? Contrast-enhanced CT, PET and/or biopsy. OR ? Watchful waiting: follow up CT at 3, 9 & 24 months. HIGH RISK is defined as a history of smoking or other known risk factorsfor lung cancer. LOW RISK is defined as minimal or absent history of smoking or other knownrisk factors. Caveat: Nodules with a ground glass component may require longer follow upto exclude indolent adenocarcinoma. [facility] CT ABDOMEN WO CONTRAST 2024-12 19:04:1 8 EXAM: CT ABDOMEN WITHOUT CONTRAST HISTORY: Left renal mass with history of chronic disease COMPARISON: Ultrasound abdomen May 01, 2024. DOSE: 248 mGy-cm TECHNIQUE AND FINDINGS: Contiguous axial imaging from the level of the lungbases through the iliac crests was performed without the intravenousadministration of contrast. Coronal and sagittal reconstructions wereobtained. ?Auto mA and/or iterative reconstruction were used to reduceradiation dose. FINDINGS: LOWER THORAX: The lungs bases are clear. No cardiomegaly. LIVER: No focal hepatic lesions. ?Normal liver contour. GALLBLADDER AND BILIARY TREE: No biliary ductal dilation. ?No gallbladderwall thickening. Calcified cholelithiasis with a underdistended gallbladderand without changes of acute cholecystitis. SPLEEN: No splenomegaly. PANCREAS: No ductal dilation or masses. ADRENAL GLANDS: No adrenal nodules. KIDNEYS: No hydronephrosis, or stones. 9 mm right superior pole cortical structure as seen on coronal image 62measures proteinaceous/hemorrhagic cyst attenuation. A hyperdense soft tissue density exophytic 2 cm left superior pole renalmass. A 3.2 x 3 x 3.7 cm (CC TV AP) left superior pole cortical hyperdenseheterogenous expansile mass on axial image 59. PERITONEUM AND RETROPERITONEUM: No free air or fluid. LYMPH NODES: No lymphadenopathy. GI TRACT: No dilation or wall thickening. Normal appendix VESSELS: Scattered aortoiliac atherosclerotic calcifications. Limitedevaluation given absence of intravascular contrast. BONES AND SOFT TISSUES: No suspicious lytic or sclerotic bony lesions.Severe multilevel spondylosis. [facility],POST-VOID RES,US,[id number] 00:00:00* Test Item Value Reference Range Interpretation Comme nts PVR (URINE VOLUME) (test cod e = 5193) 155 ml 0-100 A Lab Interpretation (test cod e = 95179-2) [facility]normal [facility], [id number] 19:18:00 * Test Item Value Reference Range Interpretation Comme nts POCT U SP GRAV (test code = 3255) 1.010 mg/dl 1.005-1.025 POCT PH U (test code = 3254) 5.5 mg/dl 5-8 POCT U LEUK EST (test code = 3263) Negative Negative - Negative POCT U NIT (test code = 3262) Negative Negative - Negative POCT U PROT (test code = 3259) 100 Negative - Negative A POCT U GLU (test code = 3256) 500 Negative - Negative A POCT U KETONE (test code = 3258) Negative Negative - Negative POCT U UROBILI (test code = 3260) 0.2 mg/dl 0.2-1 POCT U BILI (test code = 3261) Negative Negative - Negative POCT U BLD (test code = 3257) trace-intact Negative - Negative A POCT U COLOR (test code = 3266) Yellow POCT U APPEAR (test code = 3267) Clear Lab Interpretation (test code = 53250-4) Abnormal [facility],POST-VOID RES,US,[id number] 19:17:00* Test Item Value Reference Range Interpretation Comme nts PVR (URINE VOLUME) (test cod e = 5193) 102 ml 0-100 A Lab Interpretation (test cod e = 05943-6) Abnormal [facility] [place] [facility] [id number] 20:21:00* Test Item Value Reference Range Interpretation Comme nts GLUCOSE BEDSIDE (test code = GLUBED) 133 MG/DL 70-110 H Performed by cer tified sealing and canceling machine operator at [facility] COAGULATION TIME [id number] 09:33:00* Test Item Value Reference Range Interpretation Comme nts COAGULATION TIME ACTIVATED (test code = ACT) 195 SECONDS Performed by certified sealing and canceling machine operator at [facility] BASIC METABOLIC [id number] 06:47:00* Test Item Value Reference Range Interpretation Comme nts SODIUM (test code = NA) 143 mEq/L 134-147 N POTASSIUM (test code = K) 4.2 mEq/L 3.4-5.0 N CHLORIDE (test code = CL) 112 mEq/L 100-108 H CARBON DIOXIDE (test code = CO2) 22 mEq/l 21-33 N ANION GAP (test code = GAP) 13 0-20 N GLUCOSE (test code = GLU) 156 mg/dL 77-141 H BLOOD UREA NITROGEN (test code = BUN) 52 mg/dL 7-25 H GLOMERULAR FILTRATION RATE (test code = GFR) 21.3 70-80 L The Glomerular Filtration Rate is a calculated parameterbased on serum Creatinine, patient age and sex. GFR valuesless than 60 mL/min/1.73 square meters are indicative ofChronic Kidney Disease. Values less than 15 mL/min/1.73square meters indicate Kidney failure. The calculation forGFR is based on the CKD-EPI (2020) calculation. This formulais race indifferent and is the recommended formula for GFRby the National Kidney Foundation for Adults.The GFR will not calculate if the sex is unknown or if thepatient's age is <18 years. 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 [facility] - XR CHEST 2 [id number] 16:10:00 [facility] 1940 Sex: M FAX: Dequan Santos MD [phone] [place]: St: PRE Name: KRYSTEN TEAGUE [facility] [place] : 1940 Age/S: 84/M [address] [place] [address] Unit #: [id number] Loc: [place] [address] Phys: Deqaun Horner MD Acct: [id number] Dis Date: Status: PRE SDC PHONE #: [phone] Exam Date: 04/30/2024 1543 FAX #: [phone] Reason: PREOP EXAMS: CPT CODE: [id number] XR CHEST 2 V 35069 EXAM: CHEST 2 VIEWS INDICATION:PREOP LOCATION: B2 COMPARISON: None available TECHNIQUE: PA and lateral views of the chest. FINDINGS: The heart size is normal. The lungs are clear bilaterally. The pulmonary vasculature is normal. No pneumothorax or pleural effusion is identified. The osseous structures are normal. IMPRESSION: No acute cardiopulmonary process. at 1610 Reported and signed by: Whit Dunham M.D. CC: Dequan Horner MD Technologist: RT Maxim(Amelia) Trnscrd Date/Time/By: 04/30/2024 (1610) : By: 16 Orig Print D/T: S: 04/30/2024 ( 2293) PAGE 1 Signed ReportBASIC METABOLIC [id number] 15:32:00* Test Item Value Reference Range Interpretation Comme nts SODIUM (test code = NA) 144 mEq/L 134-147 N POTASSIUM (test code = K) 4.4 mEq/L 3.4-5.0 N CHLORIDE (test code = CL) 110 mEq/L 100-108 H CARBON DIOXIDE (test code = CO2) 23 mEq/l 21-33 N ANION GAP (test code = GAP) 16 0-20 N GLUCOSE (test code = GLU) 202 mg/dL 77-141 H BLOOD UREA NITROGEN (test code = BUN) 58 mg/dL 7-25 H GLOMERULAR FILTRATION RATE (test code = GFR) 20.4 70-80 L The Glomerular Filtration Rate is a calculated parameterbased on serum Creatinine, patient age and sex. GFR valuesless than 60 mL/min/1.73 square meters are indicative ofChronic Kidney Disease. Values less than 15 mL/min/1.73square meters indicate Kidney failure. The calculation forGFR is based on the CKD-EPI (2020) calculation. This formulais race indifferent and is the recommended formula for GFRby the National Kidney Foundation for Adults.The GFR will not calculate if the sex is unknown or if thepatient's age is <18 years. CREATININE (test code = CREAT) 2.9 mg/dL 0.6-1.3 H CALCIUM (test code = CA) 8.5 mg/dL 8.0-10.5 N PROTHROMBIN [id number] 15:25:00* Test Item Value Reference Range Interpretation Comme nts PROTHROMBIN TIME PATIENT (test code = PTP) 11.2 SECONDS 9.3-12.9 N INTERNATIONAL NORMAL RATIO (test code = INR) 1.0 0.8-1.2 N TARGET INR BY INDICATION Indication INR1. Prophylaxis of venous thrombosis 2.0 - 3.0 (orthopedic surgery), Prophylaxis of venous thrombosis (other than high-risk surgery), Treatment of Deep Vein Thrombosis/Pulmonary Embolism, Prevention of systemic embolism - Tissue heart valves, Acute Myocardial Infarction (to prevent systemic embolism), Valvular heart disease, Atrial Fibrillation, Bileaflet mechanical valve in aortic position.2. Mechanical prosthetic valves (high risk), 2.5 - 3.5 Presence of Lupus Anticoagulant or Antiphospholipid Antibodies, Prevention of systemic embolism - Acute Myocardial Infarction (to prevent recurrent infarct). CBC W/AUTO [id number] 15:11:00* Test Item Value Reference Range Interpretation Comme nts WHITE BLOOD CELL (test code = WBC) 7.4 x10 3/uL 4.5-11.0 N RED BLOOD CELL (test code = RBC) 3.00 x10 6/uL 4.00-5.60 L HEMOGLOBIN (test code = HGB) 9.7 g/dL 12.5-16.9 L HEMATOCRIT (test code = HCT) 31.0 % 37.5-50.7 L MEAN CELL VOLUME (test code = MCV) 103.3 fL 81.0-99.0 H MEAN CELL HGB (test code = MCH) 32.3 pg 27.0-33.0 N MEAN CELL HGB CONCETRATION (test code = MCHC) 31.3 g/dL 33.0-37.0 L RED CELL DISTRIBUTION WIDTH CV (test code = RDW) 13.6 % 11.5-14.5 N RED CELL DISTRIBUTION WIDTH SD (test code = RDW-SD) 51.5 fL 37.0-54.0 N PLATELET COUNT (test code = PLT) 181 x10 3/uL 150-400 N MEAN PLATELET VOLUME (test c ode = MPV) 11.2 fL 7.0-9.0 H NEUTROPHIL % (test code = NT%) 67.8 % 56.0-77.0 N IMMATURE GRANULOCYTE % (test code = IG%) 0.5 % 0.0-2.0 N LYMPHOCYTE % (test code = LY%) 17.6 % 14.0-32.0 N MONOCYTE % (test code = MO%) 11.2 % 4.8-9.0 H EOSINOPHIL % (test code = EO%) 2.0 % 0.3-3.7 N BASOPHIL % (test code = BA%) 0.9 % 0.0-2.0 N NUCLEATED RBC % (test code = NRBC%) 0.0 % 0-0 N NEUTROPHIL # (test code = NT#) 5.04 x10 3/uL 2.0-7.6 N IMMATURE GRANULOCYTE # (test code = IG#) 0.04 x10 3/uL 0.00-0.03 H LYMPHOCYTE # (test code = LY#) 1.31 x10 3/uL 1.0-3.8 N MONOCYTE # (test code = MO#) 0.83 x10 3/uL 0.1-0.8 H EOSINOPHIL # (test code = EO#) 0.15 x10 3/uL 0.0-0.2 N BASOPHIL # (test code = BA#) 0.07 x10 3/uL 0.0-0.2 N NUCLEATED RBC # (test code = NRBC#) 0.00 x10 3/uL 0.0-0.1 N GIL,POST-VOID RES,US,[id number] 16:05:00* Test Item Value Reference Range Interpretation Comme nts PVR (URINE VOLUME) (test code = 5193) 9 ml 0-100 [facility] [place] [facility],US,[id number] 16:05:00* Test Item Value Reference Range Interpretation Comme nts PVR (URINE VOLUME) (test code = 5193) 9 ml 0-100 [facility] [place] [facility] Urinalysis, [id number] 16:03:00 * Test Item Value Reference Range Interpretation Comme nts POCT U SP GRAV (test code = 3255) 1.020 mg/dl 1.005-1.025 POCT PH U (test code = 3254) 5.5 mg/dl 5-8 POCT U LEUK EST (test code = 3263) negative Negative - Negative POCT U NIT (test code = 3262) negative Negative - Negative POCT U PROT (test code = 3259) 300 Negative - Negative A POCT U GLU (test code = 3256) negative Negative - Negative POCT U KETONE (test code = 3258) negative Negative - Negative POCT U UROBILI (test code = 3260) 0.2 mg/dl 0.2-1 POCT U BILI (test code = 3261) negative Negative - Negative POCT U BLD (test code = 3257) trace-intact Negative - Negative A POCT U COLOR (test code = 3266) yellow POCT U APPEAR (test code = 3267) clear Lab Interpretation (test code = 69503-4) Abnormal [facility] Urinalysis, [id number] 16:03:00 * Test Item Value Reference Range Interpretation Comme nts POCT U SP GRAV (test code = 3255) 1.020 mg/dl 1.005-1.025 POCT PH U (test code = 3254) 5.5 mg/dl 5-8 POCT U LEUK EST (test code = 3263) negative Negative - Negative POCT U NIT (test code = 3262) negative Negative - Negative POCT U PROT (test code = 3259) 300 Negative - Negative A POCT U GLU (test code = 3256) negative Negative - Negative POCT U KETONE (test code = 3258) negative Negative - Negative POCT U UROBILI (test code = 3260) 0.2 mg/dl 0.2-1 POCT U BILI (test code = 3261) negative Negative - Negative POCT U BLD (test code = 3257) trace-intact Negative - Negative A POCT U COLOR (test code = 3266) yellow POCT U APPEAR (test code = 3267) clear Lab Interpretation (test code = 34094-0) Abnormal [facility] URINALYSIS, [id number] 15:40:00 * Test Item Value Reference Range [...] 0.2-1 POCT U BILI (test code = 3261) negative Negative - Negative POCT U BLD (test code = 3257) negative Negative - Negati ve POCT U COLOR (test code = 3266) yellow POCT U APPEAR (test code = 3267) [facility] [id number] 15:40:00 * Test Item Value Reference Range [...] 0.2-1 POCT U BILI (test code = 3261) negative Negative - Negative POCT U BLD (test code = 3257) negative Negative - Negati ve POCT U COLOR (test code = 3266) yellow POCT U APPEAR (test code = 3267) clear [facility] Notes Date/Time Note Provider Source 2025-02-08 16:34:54 Patient notified of results/recommendations, understanding was verbalized via teach back. T [facility] 2025-02-01 15:05:[address] Singh 02/12/25. Please review documentation noted on telephone encounter 02/01/25. Will continue attempting to reach patient regarding results. [facility] 2025-02-01 13:57:20 Images from the original note were not included. 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 Right renal mass on active surveillance as per patient request since 2022, now growing in size with possible extension into spleen, very suspicious for renal cell carcinoma I recommend STAT referral to Dr Singh and will order CT chest to rule out any mets Orders placed Can offer patient RTC next week with me ok to OB [facility] 2025-01-15 13:38:16 Attempted to contact patient with no answer, voicemail left with clinic phone number and instructed patient to return call. Third attempt reaching patient, letter mailed at this time. [facility] 2025-01-02 11:42:52 Called number on file; no answer; message left to return call to clinic. April Garcia RN [facility] 2025-01-01 15:52:16 Images from the original note were not included. April Garcia RN [facility] 2024-12-18 13:15:00 Addended by: SMOOTH HOBBS on: 12/28/2024 07:03 PM Modules accepted: Orders [facility] 2024-05-02 10:43:00 [id number] [place] [address] PATIENT NAME: KRYSTEN TEAGUE ADMIT DATE: 05/02/24 ACCOUNT NO: [id number] ROOM NO: AGE: 84 REPORT TYPE: CARDIAC CATHETERIZATION REPORT SEX: M ADMITTING PHYSICIAN: ATTENDING PHYSICIAN:Dequan Horner MD PROCEDURE DATE: 05/02/2024 PROCEDURE PERFORMED: 1. Coronary angiogram. 2. PCI of severe ostial LAD stenosis. I used 2.75 x 12 mm Synergy drug-eluting stent to high pressure, size of 3 mm. ACCESS: Right common femoral artery, 6-[place] closed with 6-[place] Angio-Seal. COMPLICATIONS: None. BLEEDING: Less than 50 mL. INDICATION: Known coronary artery disease with angina. BLEEDING: Less than 50 mL. TOTAL SEDATION TIME: One hour. DESCRIPTION OF PROCEDURE: After risks, benefits and alternatives were explained, the patient agreed to proceed, signed informed consent, the patient was brought into cardiac catheterization laboratory, prepped and draped in sterile fashion. Then, I accessed right common femoral artery using micropuncture kit ultrasound guidance, fluoroscopy, placed 6-[place] sheath and took a 6-[place] JR4 guide into aortic root, engaged the left main and then gave systemic heparin to assure ACT level above 250 and took a Runthrough wire into the left main and then LAD, placed distally and using a 2.75 NC balloon, lesion was dilated very well and expanded very well and then with the help of the GuideLiner, advanced a 2.75 x 12 mm Synergy drug-eluting stent, inflated to high pressure to a size of close to 3 mm. Excellent results at the end. Wire was removed. Final angiogram was satisfactory. Removed the guide and the sheath, placed TR band and placed 6-[place] Angio-Seal for closure with good hemostasis. FINDINGS: 1. Left main large and normal. 2. LAD, ostial 80% to 90%, status post successful PCI as above and the mid LAD has focal 40% stenosis. 3. Left circumflex, very large and dominant, widely patent OM stent. 4. RCA was not injected. CONCLUSION: Severe ostial and proximal LAD stenosis, status post successful PCI as above. PATIENT NAME: KRYSTEN TEAGUE PLAN: Aspirin, Plavix, high dose statin. Dictated By: Dequan Horner MD Date Dictated: 05/02/2024 10:43:47 Date Transcribed: 05/02/2024 11:55:13 /LEATHA Receipt ID: [id number] Authenticated by Dequan Horner MD On 05/16/2024 12:49:46 PM at 1249 PATIENT NAME: KRYSTEN TEAGUE [facility] 2024-05-02 09:30:00 [id number] [place] [address] PATIENT NAME: KRYSTEN TEAGUE ADMIT DATE: 05/02/24 ACCOUNT NO: [id number] ROOM NO: AGE: 84 REPORT TYPE: eELECTROCARDIOGRAM REPORT SEX: M ADMITTING PHYSICIAN: ATTENDING PHYSICIAN:Dequan Horner MD Order: [id number] Test Reason : PCI Test Date/Time Stamp: TueMay 02 2024 09:30:56 Blood Pressure : / mmHG Vent. Rate : 055 BPM Atrial Rate : 055 BPM P-R Int : 332 ms QRS Dur : 110 ms QT Int : 504 ms P-R-T Axes : 075 053 078 degrees QTc Int : 482 ms Sinus bradycardia with 1st degree AV block Voltage criteria for left ventricular hypertrophy Nonspecific ST and T wave abnormality Prolonged QT Abnormal ECG POST_OP Confirmed by CRYSTAL AUSTIN MD ([id number]) on 05/02/2024 6:26:44 PM Referred By: Dequan Horner Confirmed by:CRYSTAL AUSTIN MD at 1826 PATIENT NAME: KRYSTEN TEAGUE [facility] 2024-04-30 15:00:00 [id number] [place] [address] PATIENT NAME: KRYSTEN TEAGUE ADMIT DATE: ACCOUNT NO: [id number] ROOM NO: AGE: 84 REPORT TYPE: eELECTROCARDIOGRAM REPORT SEX: M ADMITTING PHYSICIAN: ATTENDING PHYSICIAN:Dequan Horner MD Order: [id number] Test Reason : PAT Test Date/Time Stamp: TueApr 30 2024 15:00:53 Blood Pressure : / mmHG Vent. Rate : 046 BPM Atrial Rate : 046 BPM P-R Int : 328 ms QRS Dur : 108 ms QT Int : 534 ms P-R-T Axes : 077 118 -02 degrees QTc Int : 467 ms Sinus bradycardia with 1st degree AV block Right axis deviation Incomplete right bundle branch block Nonspecific ST and T wave abnormality Abnormal ECG PRE_OP Confirmed by CRYSTAL AUSTIN MD ([id number]) on 04/30/2024 3:34:44 PM Referred By: Dequan Horner Confirmed by:CRYSTAL AUSTIN MD at 1534 PATIENT NAME: KRYSTEN TEAGUE [facility]
[2025-05-26 09:36] LABS: Absolute Lymphocytes (CBC) 0.9 K/uL (0.7-4.9); Hematocrit 32.0 % (39.6-49.0); Hemoglobin 10.6 g/dL (13.6-17.9); MCH 31.4 pg (27.0-35.0); MCHC 33.2 g/dL (32.0-36.0); MCV 94.5 fL (80-100); MPV 8.9 fL (7.6-11.3); Nucleated RBC Absolute Count 0.0 (0-0); Nucleated Red Blood Cells % 0.0 % (0-0); RBC Red Blood Cell Count 3.38 M/uL (4.33-5.43); White Blood Count 7.10 thou/uL (4.3-10.9)
[2025-05-26 09:43] LABS: PT Prothrombin Time 13.0 SECONDS (10-13.0); Protime INR 1.16
--- NOTE | 2025-05-26 10:03 | RAD REPORT ---
EXAM: Chest Single View HISTORY: 85 years Male DYSPNEA COMPARISON: 03/07/2024 FINDINGS: LUNGS/PLEURA: Small bilateral pleural effusions. Mild basilar opacities which may reflect atelectasis . CARDIAC/MEDIASTINUM: Stable enlargement. UPPER ABDOMEN: No significant abnormality. BONES: No acute abnormality. LINES/TUBES/OTHER: N/A IMPRESSION: Bilateral pleural effusions and associated atelectasis which may reflect edema/congestive heart failu re.
[2025-05-26 10:06] LABS: ALT/SGPT 36.0 U/L (16-61); AST/SGOT 27.0 U/L (15-37); Albumin 3.8 g/dL (3.4-5.0); Albumin/Globulin Ratio 1.0 (1.1-1.8); Alkaline Phosphatase 102.0 U/L (45-117); Anion Gap 14.1 mEq/L (5.0-15.0); BUN Blood Urea Nitrogen 56.0 mg/dL (7-18); Bilirubin Indirect, Calculated 0.7 mg/dL (0.2-0.8); Globulin 3.7 g/dL (2.3-3.5); Glucose Level 171.0 mg/dL (74-106); Magnesium 2.4 mg/dL (1.6-2.4); NT PRO-BNP 13904.0 pg/mL (<450); Potassium 4.1 mEq/L (3.5-5.1); Troponin High Sensitivity 32.9 pg/mL (<58.9)
--- NOTE | 2025-05-26 10:16 | ER ---
Nurse's Notes [facility] Name: Rojas Gutierres Age: 85 yrs Sex: Male : 1940 Arrival Date: 05/26/2025 Time: 08:55 Bed 6 Private MD: Diagnosis: Acute on chronic diastolic (congestive) heart failure;Weakness Presentation: 05/26 09:25 Chief complaint: Patient states: General weakness and SOB for the last few days. jl7 Coronavirus screen: At this time, the client does not indicate any symptoms associated with coronavirus-19. Ebola Screen: No symptoms or risks identified at this time. Initial Sepsis Screen: Does the patient meet any 2 criteria? No. Patient's initial sepsis screen is negative. Does the patient have a suspected source of infection? No. Patient's initial sepsis screen is negative. Risk Assessment: Do you want to hurt yourself or someone else? Patient reports no desire to harm self or others. Onset of symptoms is unknown. 09:25 Method Of Arrival: Ambulatory [facility] 09:25 Acuity: IOANA 3 jl7 Triage Assessment: 09:26 General: Appears in no apparent distress. uncomfortable, Behavior is calm, cooperative, jl7 appropriate for age. Pain: Denies pain. Neuro: Carlos Agitation-Sedation Scale (RASS): 0 - Alert and Calm Level of Consciousness is awake, alert, obeys commands, Oriented to person, place, time, situation. Cardiovascular: Heart tones S1 S2 present Patient's skin is warm and dry. Rhythm is irregular. Respiratory: Reports shortness of breath at rest Airway is patent Respiratory effort is even, unlabored, Respiratory pattern is regular, symmetrical, Onset: The symptoms/episode began/occurred gradually, the patient has mild shortness of breath. Derm: Skin is pink, warm \T\ dry. Historical: - Allergies: : Iodine; jl7 - Home Meds: :26 amlodipine oral [Active]; amiodarone 200 mg oral tablet [Active]; clopidogrel 75 mg jl7 oral tablet [Active]; metoprolol succinate 25 mg oral Tablet, Extended Release 24 hr as needed [Active]; losartan 25 mg oral tablet [Active]; furosemide 40 mg Oral tablet 0.5 tabs [Active]; aspirin 81 mg Oral tablet [Active]; ezetimibe 10 mg oral tablet [Active]; atorvastatin 40 mg oral tablet [Active]; - PMHx: 09:26 Arthritis; Diabetes - NIDDM; Gout; Hyperlipidemia; Hypertension; Myocardial infarction; jl7 - PSHx: 09:26 Stented artery; jl7 - Immunization history:: Adult Immunizations unknown. - Infectious Disease History:: Denies. - Social history:: Smoking status: Patient denies any tobacco usage or history of. Screenin:31 [facility] ED Fall Risk Assessment (Adult) History of falling in the last 3 months, jl7 including since admission No falls in past 3 months (0 pts) Confusion or Disorientation No (0 pts) Intoxicated or Sedated No (0 pts) Impaired Gait No (0 pts) Mobility Assist Device Used No (0 pt) Altered Elimination No (0 pt) Score/Fall Risk Level 0 - 2 = Low Risk Oriented to surroundings, Maintained a safe environment. Abuse screen: Denies threats or abuse. Denies injuries from another. Nutritional screening: No deficits noted. Tuberculosis screening: No symptoms or risk factors identified. Assessment: 10:00 Reassessment: Patient appears in no apparent distress at this time. No changes from jl7 previously documented assessment. Patient and/or family updated on plan of care and expected duration. Pain level reassessed. Patient is alert, oriented x 3, equal unlabored respirations, skin warm/dry/pink. Cardiovascular: Heart tones present Patient's skin is warm and dry. Rhythm is irregular. Respiratory: Airway is patent Respiratory effort is even, unlabored, Respiratory pattern is regular, symmetrical, Breath sounds are clear in right upper lobe and left upper lobe. 11:18 Reassessment: Dr. Ponce at bedside assessing pt for admit. jl7 12:30 Reassessment: Patient appears in no apparent distress at this time. No changes from jl7 previously documented assessment. Patient and/or family updated on plan of care and expected duration. Pain level reassessed. Patient is alert, oriented x 3, equal unlabored respirations, skin warm/dry/pink. Vital Signs: 09:25 BP 158 / 79; Pulse 52; Resp 15; Temp 97; Pulse Ox 97% ; Weight 68.04 kg; Height 5 ft. 8 jl7 in. ; Pain 0/10; 09:39 BP 142 / 48; Pulse 51; Resp 19; Pulse Ox 94% ; jl7 10:27 BP 144 / 50; Pulse 51; Resp 19; Pulse Ox 93% ; jl7 12:30 BP 157 / 56; Pulse 56; Resp 19; Pulse Ox 97% ; jl7 09:25 Body Mass Index 22.81 (68.04 kg, 172.72 cm) jl7 09:25 Pain Scale: Adult jl7 ED Course: 08:57 Patient arrived in ED. ts1 08:58 Kathy Chapin PA-C is PHCP. sb4 08:58 Tae Navarro MD is Attending Physician. sb4 09:07 Megan Degroot, FABIANO is Primary Nurse. jl7 09:15 EKG done, by ED staff, reviewed by Kathy Chapin PA-C. ap3 09:26 Triage completed. jl7 09:26 Arm band placed on right wrist. jl7 09:31 Initial lab(s) drawn, by ca, sent to lab. Inserted saline lock: 22 gauge in right jl7 forearm, using aseptic technique. Blood collected. Flushed with 10 mL NS. 09:31 Patient has correct armband on for positive identification. Provided Education on: use jl7 of call ann. Client placed on continuous cardiac and pulse oximetry monitoring. NIBP monitoring applied. inventory planner on. Pulse ox on. 09:58 XRAY Chest (1 view) In Process Unspecified. EDMS 10:15 Ervin Ponce is Hospitalizing Provider. sb4 12:30 No provider procedures requiring assistance completed. Patient admitted, IV remains in jl7 place. intact, No redness/swelling at site. Administered Medications: 10:26 Drug: Furosemide IVP 40 mg IVP once; give over 2 minutes Route: IVP; Site: right jl7 forearm; 12:58 Follow up: Response: No adverse reaction jl7 Medication: 09:31 VIS not applicable for this client. jl7 Outcome: 10:16 Decision to Hospitalize by Provider. sb4 12:30 Admitted to Med/surg accompanied by tech, via wheelchair, room 214, with chart, jl7 12:30 Condition: stable 12:30 Discharge instructions given to patient, family, Instructed on the need for admit, Demonstrated understanding of instructions, 13:26 Patient left the ED. iw Signatures: Dispatcher [employer] EDME Carolyn Ugarte RN RN iw Megan Degroot RN RN jl7 Leticia Foley RN RN ap3 Kathy Chapin, PARodney PA-C sb4 Kalee Jonas, [facility] ts1
--- NOTE | 2025-05-26 10:16 | EDPHYS ---
Physician Documentation [facility] Name: Rojas Gutierres Age: 85 yrs Sex: Male : 1940 Arrival Date: 05/26/2025 Time: 08:55 Bed 6 Private MD: ED Physician Tae Navarro HPI: 05/26 09:20 This 85 yrs old Male presents to ER via Unassigned with complaints of Shortness Of sb4 Breath, General Weakness. 09:30 Patient reports generalized weakness and dyspnea on exertion for about 3 days now. sb4 States that he feels extremely winded walking short distances. Does report a history of atrial fibrillation, CKD, congestive heart failure -reports compliance with all of his medications. Denies any swelling of his lower extremities. Does endorse some orthopnea. Is not on any blood thinners. States that his stool was black about 6 months ago but has been normal over the last few months. He reports a foreign body sensation in his lower throat/chest as well as pain in his back. Historical: - Allergies: 09:26 Iodine; jl7 - Home Meds: : amlodipine oral [Active]; amiodarone 200 mg oral tablet [Active]; clopidogrel 75 mg jl7 oral tablet [Active]; metoprolol succinate 25 mg oral Tablet, Extended Release 24 hr as needed [Active]; losartan 25 mg oral tablet [Active]; furosemide 40 mg Oral tablet 0.5 tabs [Active]; aspirin 81 mg Oral tablet [Active]; ezetimibe 10 mg oral tablet [Active]; atorvastatin 40 mg oral tablet [Active]; - PMHx: 09:26 Arthritis; Diabetes - NIDDM; Gout; Hyperlipidemia; Hypertension; Myocardial infarction; jl7 - PSHx: : Stented artery; jl7 - Immunization history:: Adult Immunizations unknown. - Infectious Disease History:: Denies. - Social history:: Smoking status: Patient denies any tobacco usage or history of. ROS: 09:30 Constitutional: Negative for fever, chills, and weight loss, sb4 09:30 Respiratory: Positive for dyspnea on exertion, orthopnea, 09:30 Neuro: Positive for weakness, 09:30 All other systems are negative, Exam: 09:30 Head/Face: Normocephalic, atraumatic. Eyes: Extra-ocular motions intact. Periorbital sb4 areas with no swelling, redness, or edema. ENT: Mucous membranes moist. Respiratory: No increased work of breathing, no retractions or nasal flaring. Abdomen/GI: Soft, non-tender, no distension. Skin: Warm, dry with normal turgor. Normal color with no rashes, no lesions, and no evidence of cellulitis. 09:30 Constitutional: The patient appears in no acute distress, alert, awake, 09:30 Cardiovascular: Rate: normal, Rhythm: irregularly irregular, 09:30 Cardiovascular: Edema: is not appreciated, Vital Signs: 09:25 BP 158 / 79; Pulse 52; Resp 15; Temp 97; Pulse Ox 97% ; Weight 68.04 kg; Height 5 ft. 8 jl7 in. ; Pain 0/10; 09:39 BP 142 / 48; Pulse 51; Resp 19; Pulse Ox 94% ; jl7 10:27 BP 144 / 50; Pulse 51; Resp 19; Pulse Ox 93% ; jl7 12:30 BP 157 / 56; Pulse 56; Resp 19; Pulse Ox 97% ; jl7 09:25 Body Mass Index 22.81 (68.04 kg, 172.72 cm) jl7 09:25 Pain Scale: Adult jl7 MDM: 08:58 Medical Screening Exam initiated sb4 09:33 Differential diagnosis: Anemia CHF exacerbation, Myocardial Infarction pneumonia, sb4 pulmonary edema, Unstable Angina. Care significantly affected by the following chronic conditions: Diabetes, Hypertension, Congestive Heart Failure, Chronic Kidney Disease. 10:02 Independent interpretation of the following test(s) in the Emergency Department X-Ray: sb4 My interpretation is My interpretation of the chest x-ray images is cardiomegaly with hazy lung bases. 10:14 Antibiotic administration: Not indicated, the patient does not have an appreciated sb4 infiltrate. Data interpreted: Pulse oximetry: on room air is 94 %. Data reviewed: vital signs, nurses notes, lab test result(s), EKG, radiologic studies, and as a result, I will admit patient. Consideration of Admission/Observation Patient was admitted/placed on observation. Counseling: I had a detailed discussion with the patient and/or guardian regarding the historical points, exam findings, and any diagnostic results supporting the discharge/admit diagnosis, the presence of at least one elevated blood pressure reading (>120/80) during this emergency department visit, lab results, radiology results, the need for further work-up and treatment in the hospital. 05/26 09:11 Order name: Basic Metabolic Panel; Complete Time: 10:09 sb4 05/26 09:11 Order name: CBC with Diff; Complete Time: 09:46 sb4 05/26 09:11 Order name: LFT's; Complete Time: 10:09 sb4 05/26 09:11 Order name: Magnesium; Complete Time: 10:09 sb4 05/26 09:11 Order name: NT PRO-BNP; Complete Time: 10:09 sb4 05/26 09:11 Order name: PT-INR; Complete Time: 09:44 sb4 05/26 09:11 Order name: Troponin HS; Complete Time: 10:09 sb4 05/26 12:42 Order name: Basic Metabolic Panel EDMS 05/26 12:42 Order name: Basic Metabolic Panel EDMS 05/26 12:42 Order name: CBC with Automated Diff EDMS 05/26 12:42 Order name: CBC with Automated Diff EDMS 05/26 12:42 Order name: Lipid Profile EDMS 05/26 12:42 Order name: Lipid Profile EDMS 05/26 12:42 Order name: Troponin High Sensitivity EDMS 05/26 12:42 Order name: Troponin High Sensitivity EDMS 05/26 12:42 Order name: Troponin High Sensitivity EDMS 05/26 09:11 Order name: XRAY Chest (1 view); Complete Time: 10:09 sb4 05/26 12:42 Order name: Echo with Doppler EDMS 05/26 09:11 Order name: Cardiac monitoring; Complete Time: 09:32 sb4 05/26 09:11 Order name: EKG - Nurse/Tech; Complete Time: 09:15 sb4 05/26 09:11 Order name: IV Saline Lock; Complete Time: 09:32 sb4 05/26 09:11 Order name: Labs collected and sent; Complete Time: 09:32 sb4 05/26 09:11 Order name: O2 Per Protocol; Complete Time: 09:32 sb4 05/26 09:11 Order name: O2 Sat Monitoring; Complete Time: 09:32 sb4 EC:16 Rate is 58 beats/min. Rhythm is regular, A fib. QRS interval is normal at 104 msec. QT sb4 interval is prolonged at 514 msec. Clinical impression: Atrial Fibrillation. Interpreted by me. Reviewed by me. Administered Medications: 10:26 Drug: Furosemide IVP 40 mg IVP once; give over 2 minutes Route: IVP; Site: right jl7 forearm; 12:58 Follow up: Response: No adverse reaction jl7 Disposition: 16:59 Co-signature as Attending Physician, Tae Navarro MD I reviewed the patient's care rn provided by the Advanced Practice Provider and agree with the diagnosis and treatment plan. Disposition Summary: 05/26/25 10:16 Hospitalization Ordered Notes: Hospitalization Status: Inpatient Admission sb4 Provider: Ervin Ponce sb4 Location: Telemetry/MedSurg (Inpatient) sb4 Condition: Fair sb4 Problem: new sb4 Symptoms: are unchanged sb4 Bed/Room Type: Standard sb4 Room Assignment: 214(05/26/25 12:41) eb Diagnosis - Acute on chronic diastolic (congestive) heart failure sb4 - Weakness sb4 Forms: - Medication Reconciliation Form sb4 - SBAR form sb4 - Leadership Thank You Letter sb4 Signatures: Dispatcher [employer] EDMS Tae Navarro MD MD rn Leal, Jahala, RN RN jl7 Sade Shane Sophia, PA-C PALamonteC sb4 Corrections: (The following items were deleted from the chart) 09:12 09:12 BASIC METABOLIC PANEL+C.LAB.BRZ ordered. EDMS EDMS 09:12 09:12 CBC+H.LAB.BRZ ordered. EDMS EDMS 09:12 09:12 HEPATIC FUNCTION+C.LAB.BRZ ordered. EDMS EDMS 09:12 09:12 MAGNESIUM+C.LAB.BRZ ordered. EDMS EDMS 09:12 09:12 PROBNP+C.LAB.BRZ ordered. EDMS EDMS 09:12 09:12 PROTIME (+INR)+COAG.LAB.BRZ ordered. EDMS EDMS 09:12 09:12 Troponin High Sensitivity+C.LAB.BRZ ordered. EDMS EDMS 09:12 09:12 Chest Single View+RAD.RAD.BRZ ordered. EDMS EDMS 12:41 10:16 sb4 eb
[2025-05-26] MEDS ORDERED: FUROSEMIDE 40 MG/4 ML VIAL ONE (10:17)
--- NOTE | 2025-05-26 12:21 | P.HP ---
Certification for Inpatient Patient admitted to: Observation With expected LOS: <2 Midnights Practitioner: I am a practitioner with admitting privileges, knowledge of patient current condition, hospital course, and medical plan of care. Services: Services provided to patient in accordance with Admission requirements found in Title 42 Section 412.3 of the Code of Federal Regulations Patient History Date of Service: 05/26/25 Reason for admission: Chest tightness History of Present Illness: 85-year-old gentleman with a history of coronary artery disease status post stent, hypertension, hyperlipidemia, diabetes mellitus and chronic kidney disease presented to the emergency department with a complaint of chest tightness and a feeling of choking sensation. Symptoms of onset last night. Patient denies any chest pain or palpitation. Patient was concerned he was having another heart attack so he presented to the emergency department for evaluation. In the ER, troponin negative, EKG unremarkable and shows no ischemic changes, abnormal lab values include anemia with hemoglobin of 10.6 and metabolic acidosis. Chest x-ray shows no acute disease. Given patient's significant coronary disease risk factors, he is hospitalized for ACS rule out. Allergies iodine Allergy (Verified 03/19/24 09:35) Hives/Rash shellfish derived Allergy (Verified 03/19/24 09:35) Hives/Rash Home Medications: Amiodarone HCl [Pacerone] 200 mg PO DAILY 03/08/24 Amlodipine [Norvasc*] 5 mg PO DAILY 03/08/24 Atorvastatin Calcium 40 mg PO DAILY 03/08/24 Dapagliflozin Propanediol [Farxiga] 5 mg PO DAILY 30 Days #30 tab 03/08/24 Docusate Sodium [Colace] 100 mg PO DAILY 03/08/24 Ezetimibe 10 mg PO DAILY 03/08/24 Ferrous Sulfate 65 mg PO DAILY 03/08/24 Folic Acid/Vit B Complex and C [Erma-Amadou Tablet] 0.8 mg PO DAILY 03/08/24 Levothyroxine [Synthroid*] 25 mcg PO DAILY 03/08/24 Metoprolol Succinate [Toprol Xl] 25 mg PO DAILY 03/08/24 Pantoprazole [Protonix Tab*] 40 mg PO DAILY 03/08/24 Clopidogrel Bisulfate [Plavix*] 75 mg PO DAILY 30 Days #30 tab 03/09/24 Furosemide [Lasix] 40 mg PO DAILY 30 Days #30 tab 03/09/24 Clopidogrel Bisulfate [Plavix] 75 mg PO DAILY 30 Days #30 tab 03/10/24 - Past Medical/Surgical History -: Hypertension -: Gout -: Diabetes mellitus type 2 -: HLD -: OA - Social History Alcohol use: No CD- Drugs: No Caffeine use: Yes Review of Systems Other: Patient denies any new cough or wheezing. He denies any headache. He denies any nausea vomiting or diarrhea. He denies any fever. Except as documented, all other systems reviewed and negative. Physical Examination - Physical Exam General: Alert, In no apparent distress HEENT: Atraumatic, Normocephalic, PERRLA, Mucous membr. moist/pink, EOMI, Sclerae nonicteric Neck: Supple, JVD not distended Respiratory: Clear to auscultation bilaterally, Normal air movement Cardiovascular: No edema, Regular rate/rhythm, Normal S1 S2 Gastrointestinal: Normal bowel sounds, Soft and benign, Non-distended, No tenderness Musculoskeletal: No swelling Integumentary: No rashes, No cyanosis Neurological: Normal speech, Normal strength at 5/5 x4 extr, Cranial nerves 3-12 intact Lymphatics: No axilla or inguinal lymphadenopathy - Studies Laboratory Data (last 24 hrs) 05/26/25 05/26/25 05/26/25 09:19 09:19 09:19 WBC 7.10 Hgb 10.6 L Hct 32.0 L Plt Count 183 PT 13.0 INR 1.16 Sodium 142 Potassium 4.1 BUN 56 H Creatinine 3.61 H Glucose 171 H Magnesium 2.4 Total Bilirubin 1.0 AST 27 ALT 36 Alkaline Phosphatase 102 Assessment and Plan - Plan Diagnosis: Chest tightness rule out ACS Metabolic acidosis Chronic kidney disease stage IV History of coronary artery disease status post stent Bradycardia Essential hypertension Diabetes mellitus type 2 Plan: Chest tightness History of coronary artery disease status post stent Rule out ACS Place patient in the observation Continue to trend troponin. Obtain echocardiogram Continue home aspirin and Plavix atorvastatin. Patient is bradycardic and holding beta-blockers for now. Metabolic acidosis Chronic kidney disease stage IV Serum creatinine appears to be at baseline Nephrology consult. Essential hypertension Blood pressures currently controlled. Continue home antihypertensives. Diabetes mellitus type 2 Diet controlled. Insulin sliding scale for glucose management. DVT prophylaxis: Heparin Advance directive: full code - Advance Directives Does patient have a Living Will: No Does patient have a Durable POA for Healthcare: No
[2025-05-26] MEDS ORDERED: NITROGLYCERIN 0.4 MG/TAB SL PRN (12:36)
[2025-05-26] MEDS: HEPARIN 5000 UNIT/ML 1 ML VIAL SQ SCH (16:21)
[2025-05-26 20:17] LABS: HDL Cholesterol 48.0 mg/dL (40-60); LDL Cholesterol, Calculated 27.0 mg/dL (<130); LDL Cholesterol,Calc NonReport 27.0; Troponin High Sensitivity 32.5 pg/mL (<58.9)
--- NOTE | 2025-05-26 21:22 | CON ---
Date of Consultation: 05/26/2025 Reason For Consultation: Chest tightness. History Of Present Illness: 85-year-old male with known coronary artery disease, status post multipl e PCIs, history of hypertension, diabetes, presented to the emergency department with difficulty to b reathe, more of orthopnea and chest tightness like a choking sensation with orthopnea. Denies having any eduin chest pain specifically, but he never had chest pain with his previous cardiac issues. He was felt to be in acute congestive heart failure, did diurese and he is feeling much better now. Past Medical History: As outlined above in the HPI. Medications: Refer to reconciliation sheet for detailed list. Allergies: IODINE. Family History: No premature coronary artery disease or cancer. Social History: Does not smoke or drink. Does not use any drugs. Review of Systems: All systems reviewed, they are negative except mentioned in HPI. Physical Examination: Vital Signs: Reviewed. Head and Neck: Pupils are equal, reactive to light. Intact eye movements. No JVD. No cervical lym phadenopathy. Neck is supple. Thyroid is not enlarged. Lungs: Clear to auscultation bilaterally. No rhonchi, wheezing or crackles. No accessory muscle us e. Heart: Regular rate and rhythm. No extra sounds. Abdomen: Soft, nontender. Bowel sounds positive. No organomegaly. No masses or hernia. No rigidit y or rebound. Extremities: No edema, clubbing, cyanosis. Intact pulses. Skin: No rash. Neuro: Alert, awake, and oriented x3. No acute focal deficits appreciated. Investigations: First troponin is negative. Chest x-ray, bilateral pleural effusion and congestive heart failure findings and his BUN is 56, creatinine 3.61. Assessment/recommendations: 1. Acute on chronic diastolic heart failure exacerbation, did very well. Switch the Lasix to oral, g grover him 40 mg daily and monitor BUN, creatinine, electrolytes. 2. Advanced kidney failure. Recommend Nephrology evaluation. 3. Coronary artery disease with chest discomfort. First troponin is negative, trend 2 more troponins . If negative, then the patient can be released and to follow up with me in the office in 1 week. 4. Dyslipidemia. Continue statin. 5. Atrial fibrillation, this issue is controlled. Continue current therapy including amiodarone. SR/MODL Voice ID: [id number] Report ID: [id number]
--- NOTE | 2025-05-27 02:33 | CON ---
Date of Consultation: 05/26/2025 Chief Complaint: The patient is admitted for chest tightness. Nephrology consultation is requested for acute on chronic kidney injury. History Of Present Illness: The patient is an 85-year-old man with history of coronary artery diseas e, status post stent; hypertension; hyperlipidemia; diabetes mellitus; chronic kidney disease stage 4 . He presented to emergency department with complaint of chest tightness and feeling short of breath . He developed above symptoms last night, and denies chest pain or palpitation during examination. The patient was concerned that he was having myocardial infarction and heart attack, and he presented to emergency room for evaluation. He denied fever, chills, nausea, vomiting, melena, hematemesis. Lab work was obtained in the emergency room, and troponin was negative for acute coronary syndrome. EKG was unremarkable and showed no ischemic new changes. Abnormal lab work values include anemia wit h hemoglobin of 10.6. He has metabolic acidosis, elevated BUN and creatinine levels. He is admitted to the hospital for chest pain, acute coronary syndrome and is undergoing cardiac workup. The patie nt has history of acute kidney injury. Previously, he was on dialysis and was taken off dialysis whe n renal function improved. Past Medical History: Includes hypertension, gout, diabetes mellitus type 2, osteoarthritis, HLD. Social History: Denies tobacco, alcohol. Denies drugs. Review of Systems: Constitutional: The patient denies fever, chills. Eyes: Denies vision changes. Ears, Nose, Mouth, and Throat: Denies sore throat, earache. Cardiorespiratory: Has shortness of breath. Denies cough, wheezing. Has chest pain. Denies syncop e. : Denies dysuria, hematuria. Physical Examination: General: The patient is alert, not in apparent distress. HEENT: Atraumatic, normocephalic. Anicteric sclerae. Neck: Supple. No bruits. Lungs: Diminished breath sounds at bases. No wheezing. No rhonchi. Heart: S1, S2. No pericardial friction rub. Abdomen: Soft, benign, nontender. Extremities: Slight edema in both ankles. Laboratory Work: Sodium 142, potassium 4.1, BUN 56, creatinine 3.61, glucose 171. Magnesium 2.4. A ST 27, ALT 46, AP 102. Impression And Plan: 1. Chest pain, tightness. Workup to rule out acute myocardial infarction is pending. The patient wa s found to have metabolic acidosis in the setting of chronic kidney disease stage 4 and acute kidney injury. History of coronary artery disease, status post stent. The patient was found to have bradyc ardia and workup is pending for atrial fibrillation and cardiac arrhythmia. The patient has essentia l hypertension. Blood pressure is controlled, although the patient has bradycardia and beta-carlene is currently on hold. Workup is pending to rule out acute myocardial infarction. Troponin was order ed to follow up on troponin trend. Echo is pending. Nephrology consultation is requested for acute kidney injury. The patient will have renal ultrasound, urinalysis, urine protein/creatinine ratio. The patient has high BUN and creatinine ratio, which corresponds with prerenal azotemia, cardiorenal syndrome, and has advanced chronic kidney disease. Avoid nephrotoxic medication. Avoid nonsteroidal anti-inflammatory medication. Continue to monitor blood pressure closely and adjust medication for blood pressure control. 2. The patient previously required dialysis. Current blood work showed GFR of 16. The patient may r equire dialysis in near future. 3. Cardiac arrhythmia. The patient is on amiodarone. Further recommendation from Cardiology. The p atient was taken off beta-carlene due to bradycardia. 4. Cardiorenal syndrome, chronic and acute. The patient is on furosemide. Continue to monitor volemia status and lab work results. FLORENCIO/MODL Voice ID: [id number] Report ID: [id number]
[2025-05-27 05:55] LABS: Absolute Lymphocytes (CBC) 0.8 K/uL (0.7-4.9); Hematocrit 29.0 % (39.6-49.0); Hemoglobin 9.8 g/dL (13.6-17.9); MCH 31.6 pg (27.0-35.0); MCHC 34.0 g/dL (32.0-36.0); MCV 93.0 fL (80-100); MPV 8.7 fL (7.6-11.3); Nucleated RBC Absolute Count 0.0 (0-0); Nucleated Red Blood Cells % 0.0 % (0-0); RBC Red Blood Cell Count 3.12 M/uL (4.33-5.43); White Blood Count 5.50 thou/uL (4.3-10.9)
[2025-05-27 06:12] LABS: Anion Gap 12.2 mEq/L (5.0-15.0); BUN Blood Urea Nitrogen 58.0 mg/dL (7-18); Glucose Level 126.0 mg/dL (74-106); Potassium 4.2 mEq/L (3.5-5.1)
[2025-05-27] MEDS: ATORVASTATIN 40 MG TAB PO SCH (09:18)
[2025-05-27] MEDS: LOSARTAN POTASSIUM 50 MG TABLET PO SCH (09:18)
[2025-05-27] MEDS: AMIODARONE HCL 200 MG TAB PO SCH (09:18)
[2025-05-27] MEDS: CALCITROL 0.25 MCG CAP PO SCH (09:18)
[2025-05-27] MEDS: FUROSEMIDE 20 MG TABLET PO SCH (09:18)
[2025-05-27] MEDS: ASPIRIN EC 81 MG TAB PO SCH (09:18)
[2025-05-27] MEDS: CLOPIDOGREL 75 MG TABLET PO SCH (09:18)
[2025-05-27] MEDS: EZETIMIBE 10 MG TAB PO SCH (09:19)
--- NOTE | 2025-05-27 11:28 | P.PN ---
Subjective Date of Service: 05/27/25 Chief Complaint: Chest tightness Subjective: No new changes, No C/O voiced, Tolerating diet, Ambulating, Improving Review of Systems 10-point ROS is otherwise unremarkable Physical Examination - Vital Signs Temperature: 97.6 F Blood Pressure: 189/75 Pulse: 50 Respirations: 17 Pulse Ox (%): 94 - Physical Exam General: Alert, In no apparent distress HEENT: Atraumatic, PERRLA, EOMI Neck: Supple, JVD not distended Respiratory: Clear to auscultation bilaterally, Normal air movement Cardiovascular: Regular rate/rhythm, Normal S1 S2 Gastrointestinal: Normal bowel sounds, No tenderness Musculoskeletal: No tenderness Integumentary: No rashes Neurological: Normal speech, Normal tone, Normal affect Lymphatics: No axilla or inguinal lymphadenopathy - Studies Medications List Reviewed: Yes Assessment And Plan - Current Problems (Diagnosis) (1) Chronic diastolic heart failure Current Visit: Yes Status: Acute Plan: continue lasix 20 mg daily continue Toprol 25 mg daily continue losartan 25 mg daily continue jardiance. patient looks euvoleimc on exam no further inpatient cardiac work up needed. continue to follow up with cardiology as outpatient cardiology will sign off, please call with any questions. (2) Atrial fibrillation Current Visit: Yes Status: Acute Plan: currently in sinus rhythm continue amiodarone 200 mg po daily continue Toprol XL 25 mg daily continue ASA and Plavix. (3) CAD (coronary artery disease) Current Visit: Yes Status: Acute Plan: troponin negative x3 continue ASA and Plavix outpatient follow up with cardiology for cardiac PET scan.
--- NOTE | 2025-05-27 15:19 | ECHO ---
HEIGHT: 5 ft 8 in WEIGHT: 150 lb 0 oz DATE OF STUDY: 05/27/[address]: Ervin Ponce MD 2-DIMENSIONAL: YES M.MODE: YES DOPPLER: YES COLOR FLOW: YES TDS: PORTABLE: YES DEFINITY: BUBBLE STUDY: DIAGNOSIS: CHEST TIGHTNESS CARDIAC HISTORY: CATHERIZATION: NO SURGERY: NO PROSTHETIC VALVE: NO PACEMAKER: NO MEASUREMENTS (cm) DIASTOLIC (NORMALS) SYSTOLIC (NORMALS) IVSd 1.1 (0.6-1.2) LA Diam 5.0 (1.9-4.0) LVEF 50% LVIDd 5.3 (3.5-5.7) LVIDs 3.9 (2.0-3.5) %FS 25% LVPWd 1.3 (0.6-1.2) Ao Diam 3.4 (2.0-3.7) 2 DIMENSIONAL ASSESSMENT: RIGHT ATRIUM: SEVERE ENLARGED LEFT ATRIUM: SEVERE ENLARGED RIGHT VENTRICLE: NORMAL LEFT VENTRICLE: NORMAL TRICUSPID VALVE: MILD TRICUSPID REGURGITATION MITRAL VALVE: MILD MITRAL REGURGITATION PULMONIC VALVE: NORMAL AORTIC VALVE: MILD AORTIC REGURGITATION PERICARDIAL EFFUSION: NONE AORTIC ROOT: NORMAL LEFT VENTRICULAR WALL MOTION: MILD GLOBAL HYPOKINESIS DOPPLER/COLOR FLOW: DIASTOLIC DYFUNCTION COMMENTS: 1. MILDLY REDUCED LEFT VENTRICULAR SYSTOLIC FUNCTION, EJECTION FRACTION 50%, MILD GLOBAL HYPOKINESIS 2. DIASTOLIC DYFUNCTION 3. SEVERELY PULMONARY HYPERTENSION (RIGHT VENTRICULAR SYSTOLIC PRESSURE GREATER THAN 60 mmHg) 4. SEVERE RIGHT AND LEFT ATRIAL ENLARGEMENT TECHNOLOGIST: SARWAT BAHENA
[2025-05-27 15:47] VITALS: BMI 24.0
--- NOTE | 2025-05-28 00:09 | PN ---
Date of Progress Note: 05/27/2025 Subjective: The patient is admitted for chest pain, chest tightness. He has chronic kidney disease stage 4, advancing to stage 5. He has history of acute kidney injury and previously he was dialysis dependent. He was taken off dialysis once renal function improved and he stabilized at chronic kidne y disease stage 4. The patient is an 85-year-old man with history of coronary artery disease, status post stent; hypertension; hyperlipidemia; diabetes mellitus with renal manifestation; chronic kidney disease stage 4. He presented to emergency department with complaint of chest tightness, feeling sh ort of breath, developed some shortness of breath the night prior to admission. He denied palpitatio n. He denied chest pain when he was admitted to the floor and was seen by me. He denied fever, chil ls, nausea, vomiting, melena, hematemesis. Lab work obtained in the emergency room showed troponin w as negative for acute myocardial infarction. Abnormal lab work values include anemia with hemoglobin of 10.6, elevated BUN and creatinine, metabolic acidosis, hyperchloremic secondary to chronic kidney disease. The patient has history of acute kidney injury, previously he required dialysis. He was t aken off dialysis once renal function improved. Review of Systems: Denies complaints. Physical Examination: Lungs: Clear to auscultation bilaterally. Heart: S1, S2. Abdomen: Soft, benign. Extremities: Slight edema in both ankles. Impression And Plan: 1. Chest pain, chest tightness. The patient is undergoing cardiac workup. The patient was found to have bradycardia and workup is pending. Cardiology is evaluating the patient. The patient has acute on chronic kidney injury. Renal ultrasound was ordered. Urinalysis was ordered to check for any ev idence of nephritis with active urinary sediment. Urine protein creatinine ratio was ordered. The p atient has history of cardiorenal syndrome. He has prerenal azotemia. He may benefit from gentle hy dration by mouth. He needs to follow up with Nephrology outpatient for advanced chronic kidney disea se, although he is asymptomatic, he does have uremic symptomatology, and there is no indication to st art dialysis during this admission. 2. Cardiac arrhythmia. The patient is on amiodarone. Further recommendation from Primary team and C ardiology. The patient was taken off beta-carlene due to bradycardia. 3. Cardiorenal syndrome, chronic and acute. The patient is on furosemide. Continue current dose. EB/MODL Voice ID: [id number] Report ID: [id number]
[2025-05-28 01:05] LABS: Sqamous Epithelial <5 /HPF (None Seen); Urine Micro Reflex YN NO BILL MICROSCOPIC
[2025-05-28 01:58] LABS: UR CREAT 60.0 mg/dL (20-370); UR MICROALBUMIN 51.0 mg/dL (< 1.9)
[2025-05-28 10:23] VITALS: O2SAT 92
[2025-05-28 15:06] VITALS: BP 148/66; TEMP 97.7
--- NOTE | 2025-05-28 15:25 | RAD REPORT ---
EXAMINATION: US RENAL ULTRASOUND CLINICAL INDICATION: ckd 4, kathy TECHNIQUE: Real-time ultrasonography of the abdomen was performed. COMPARISON: 07/17/2022 FINDINGS: RIGHT KIDNEY: Right renal length measurement: 9.0 x 5.6 x 4.1 cm. Normal in echogenicity and size. No calculus, solid mass or hydronephrosis. LEFT KIDNEY: Left renal length measurement: 9.8 x 5.9 x 4.4 cm. Ill-defined 17 x 16 mm mass lesion is seen cortex of the midpole left kidney. No hydronephrosis. URINARY BLADDER: Incompletely distended without gross abnormality detected. IMPRESSION: Lobulated 17 mm masslike lesion is seen mid pole left kidney, could be neoplastic. Contrast-enhanced CT renal protocol could provide better information. No hydronephrosis.
[2025-05-28] MEDS ORDERED: HYDRALAZINE HCL 25 MG TABLET PO SCH (21:00)
[2025-05-28] MEDS ORDERED: ISOSORBIDE DINIT 5 MG TAB PO SCH (21:00)
--- NOTE | 2025-05-29 03:05 | PN ---
Date of Progress Note: 05/28/2025 Chief Complaint: Cardiorenal syndrome; chronic kidney disease, stage 4; acute kidney injury; prerena l azotemia. Subjective: The patient is admitted for chest pain, chest tightness. He has chronic kidney disease, stage 4, advancing to stage 5. He is an 85-year-old man with history of coronary artery disease, st atus post stent; hypertension; hyperlipidemia; diabetes mellitus with renal manifestation. Lab work done in the emergency room showed elevated azotemia, high BUN-creatinine ratio. The patient is under going workup for chest pain. Review of Systems: Denies complaints today. Physical Examination: Lungs: Clear to auscultation bilaterally. Heart: S1, S2. Abdomen: Soft. Extremities: Slight edema in both ankles. Impression And Plan: 1. Coronary artery disease. Cardiology is following the patient. 2. Chronic kidney disease, advanced. A renal ultrasound was ordered. The patient has a history of k idney mass and was seen by urologist at [facility]. The patient needs to follow up with the urologist. 3. Cardiac arrhythmia. Patient is on amiodarone. 4. Cardiorenal syndrome, chronic and acute. Continue furosemide. EB/MODL Voice ID: [id number] Report ID: [id number]
== END 2025-05-28 15:54 | disposition home or self-care (01) | DRG 682 ==
LOC: ER 08:55 → 2ND 12:35 → OBSVTOIN 05-28 12:47
PROVIDERS: ADMIT Internal Medicine; ATTEND Hospitalist
DX: I13.10 Hypertensive heart and chronic kidney disease without heart failure, with stage 1 through stage 4 chronic kidney disease, or unspecified chronic kidney disease (principal); I50.33 Acute on chronic diastolic (congestive) heart failure; E87.20 Acidosis, unspecified; N18.4 Chronic kidney disease, stage 4 (severe); N17.9 Acute kidney failure, unspecified; I25.10 Atherosclerotic heart disease of native coronary artery without angina pectoris; I49.9 Cardiac arrhythmia, unspecified; Z88.8 Allergy status to other drugs, medicaments and biological substances; Z79.02 Long term (current) use of antithrombotics/antiplatelets; Z79.82 Long term (current) use of aspirin; E11.22 Type 2 diabetes mellitus with diabetic chronic kidney disease; M1A.9XX0 Chronic gout, unspecified, without tophus (tophi); E78.5 Hyperlipidemia, unspecified; I25.2 Old myocardial infarction; I11.0 Hypertensive heart disease with heart failure; D64.9 Anemia, unspecified; Z91.013 Allergy to seafood; R00.1 Bradycardia, unspecified; Z95.5 Presence of coronary angioplasty implant and graft
CPT/HCPCS: 36415; 71045; 76770; 80048; 80061; 80076; 81001; 82043; 82570; 82947; 83735; 83880; 84156; 84484; 85025; 85610; 86850; 86900; 86901; 93005; 93306; 94760; 96374; 99285; G0378; J1644; J1938